=== PATIENT | female | born 1990 | race Caucasian/White ===

== ENCOUNTER 2021-03-01 12:20 | Outpatient (CLI) | payer OTHER ==
--- NOTE | 2021-03-02 09:35 | Mammography Report ---
BILATERAL DIGITAL DIAGNOSTIC MAMMOGRAM 3D/2D: 03/01/2021 CLINICAL: Focal right breast pain. No prior exams were available for comparison. There are scattered fibroglandular elements in both br easts. There is an oval equal density focal asymmetry with an obscured, indistinct, and circumscribed margin in the right breast at 11 o'clock middle depth. This correlates to the area of reported pain. No other significant masses, calcifications, or other findings are seen in either breast. IMPRESSION: INCOMPLETE: NEEDS ADDITIONAL IMAGING EVALUATION The oval equal density focal asymmetry in the right breast resembles a lymph node and is indeterminat e. An ultrasound is recommended. Ultrasound will be performed immediately following the current exam. This exam was interpreted at Station ID: [id number]. NOTE: For mammograms, a report in lay terms will be sent to the patient. Approximately 15% of breast malignancies will not be visualized mammographically. In the management of a palpable breast mass, a negative mammogram must not discourage biopsy of a clinically suspicious lesion. Electronically Signed By: Parminder Regan M.D. ddp/:03/01/2021 14:18:35 ACR BI-RADS Category 0: Incomplete 3340F PARENCHYMAL PATTERN: (A) - The breast(s) demonstrate(s) scattered fibroglandular densities. BI-RADS CATEGORY: (0) - 0 Ultrasound [id number] Immediate follow-up LATERALITY: (B)
--- NOTE | 2021-03-02 09:35 | Ultrasound Report ---
LIMITED ULTRASOUND OF RIGHT BREAST: 03/01/2021 CLINICAL: Focal right breast pain. Comparison is made to exam dated: 03/01/2021 mammogram - [facility]. Color flow and real-time ultrasound of the right breast 11 o'clock region were performed on the areas of interest. Molina scale images of the real-time examination were reviewed. There is a benign-appearing oval normal lymph node with indistinct and circumscribed margins in the p osterior right breast at 11 o'clock 12 cm from the nipple. This oval normal lymph node is of mixed e chogenicity with fatty hilum. This correlates to the area of reported pain and with mammography find ings. Color flow imaging demonstrates that there is no increase in vascularity. No other discrete cy stic or solid mass identified in the area of pain. IMPRESSION: BENIGN There is no sonographic evidence of malignancy. The oval lymph node is normal in size and appears benign. This is likely an incidental finding. No ot her discrete mass identified in the area of focal pain. Recommend clinical followup to demonstrate re solution of clinical symptoms. This exam was interpreted at Station ID: [id number]. Electronically Signed By: Parminder Regan M.D. ddp/:03/01/2021 14:22:58 Ultrasound BI-RADS: 2 Benign BI-RADS CATEGORY: (2) - 2 Unspecified - other recall n/a LATERALITY: (B)
== END 2021-03-01 12:21 | disposition home or self-care (01) ==
LOC: DI 12:20
PROVIDERS: ATTEND Student in an Organized Health Care Education/Training Program
DX: N64.4 Mastodynia (principal)

== ENCOUNTER 2022-04-07 14:45 | Emergency (ER) | payer OTHER ==
--- NOTE | 2022-04-07 15:37 | ED Physician Documentation ---
History of Present Illness - Stated complaint Stated Complaint: ABDOMINAL PX - Chief complaint Chief Complaint: Abd Pain - History obtained from History obtained from: Patient, Family - History of Present Illness Pain level max: 6 Pain level now: 4 - Additonal information Additional information: Patient is a 31-year-old female who presents to the emergency department stating that she has had right lower quadrant abdominal pain for the past several weeks. She states that she was at the walk-in clinic in [place]. She states that moriah lock did an ultrasound and told her that she may have fluid around her endometrium and may have bacterial vaginitis. They treated her with Flagyl. She states that the pain did improve, but the pain has now returned. She states she followed up with her doctor who reviewed the documentation from the walk-in clinic and reportedly told the patient that she did not have any fluid around her endometrium and did not have any signs of bacterial vaginitis. She states that he palpated her abdomen and was concerned about potential appendicitis. Patient has a history of polycystic ovarian syndrome. Has a history of prior cholecystectomy. 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) Psych: Depression, Anxiety - Past Surgical History Past Surgical History: Yes General: Cholecystectomy - Present Medications Home Medications: Ambulatory Orders Medication Instructions Recorded Confirmed Buspirone HCl 15 mg PO BID 04/07/22 04/07/22 Empagliflozin [Jardiance] 10 mg PO DAILY 04/07/22 04/07/22 PARoxetine HCl [Paxil] 30 mg PO DAILY 04/07/22 04/07/22 metFORMIN [Glucophage] 1,000 mg PO DAILY 04/07/22 04/07/22 - Allergies Allergies/Adverse Reactions: Allergies Allergy/AdvReac Type Severity Reaction Status Date / Time morphine Allergy Hives Verified 04/07/22 15:10 - Living Situation Living Situation: reports: With family Living Arrangement: reports: At home - Social History Does the pt have substance abuse?: No - Family History Family history: reports: Non contributory PD ED PE NORMAL - Vitals Vital signs reviewed: Yes - General General: Alert and oriented X 3, No acute distress - HEENT HEENT: PERRL, Moist mucous membranes - Neck Neck: Supple, no meningeal sign - Cardiac Cardiac: RRR, Strong equal pulses - Respiratory Respiratory: No respiratory distress, Clear bilaterally - Abdomen Abdomen: Normal bowel sounds, Soft, Non distended, Other (Tender to palpation middle of the right side of her abdomen. Mild tenderness at McBurney's point. No peritoneal signs. Otherwise benign exam of the abdomen) - Back Back: No CVA TTP, No spinal TTP - Derm Derm: Warm and dry - Extremities Extremities: No edema, No calf tenderness / cord - Neuro Neuro: Alert and oriented X 3 - Psych Psych: Normal mood, Normal affect Results - Vitals Vitals: Vital Signs - 24 hr 04/07/22 04/07/22 15:04 17:34 Temperature 36.7 C Heart Rate 104 H 91 Respiratory 14 18 Rate Blood Pressure 137/97 H 121/88 H O2 Saturation 98 100 Oxygen O2 Source Room air - Labs Labs: Laboratory Tests 04/07/22 04/07/22 04/07/22 15:12 15:20 15:35 WBC 8.7 RBC 5.52 H Hgb 15.5 Hct 49.3 H MCV 89.3 MCH 28.1 MCHC 31.4 L RDW 12.6 Plt Count 271 MPV 9.3 Neut # (Auto) 4.9 Lymph # (Auto) 2.9 Wythe # (Auto) 0.6 Eos # (Auto) 0.3 Baso # (Auto) 0.0 Absolute Nucleated RBC 0.00 Nucleated RBC % 0.0 Sodium Potassium Chloride Carbon Dioxide Anion Gap BUN Creatinine Estimated GFR (MDRD) Glucose Calcium Total Bilirubin AST ALT Alkaline Phosphatase Total Protein Albumin Globulin Albumin/Globulin Ratio Lipase Urine Color YELLOW Urine Clarity CLEAR Urine pH 5.5 Ur Specific [place] 1.010 Urine Protein NEGATIVE Urine Glucose (UA) >=1000 H Urine Ketones NEGATIVE Urine Occult Blood NEGATIVE Urine Nitrite NEGATIVE Urine Bilirubin NEGATIVE Urine Urobilinogen 0.2 (NORMAL) Ur Leukocyte Esterase NEGATIVE Ur Microscopic Review NOT INDICATED Urine Culture Comments NOT INDICATED Urine HCG, Qual NEGATIVE 04/07/22 15:35 WBC RBC Hgb Hct MCV MCH MCHC RDW Plt Count MPV Neut # (Auto) Lymph # (Auto) [place] # (Auto) Eos # (Auto) Baso # (Auto) Absolute Nucleated RBC Nucleated RBC % Sodium 136 Potassium 3.8 Chloride 100 L Carbon Dioxide 25 Anion Gap 11.0 BUN 12 Creatinine 0.7 Estimated GFR (MDRD) 96 Glucose 173 H Calcium 9.7 Total Bilirubin 0.4 AST 37 ALT 50 Alkaline Phosphatase 85 Total Protein 7.5 Albumin 4.2 Globulin 3.3 Albumin/Globulin Ratio 1.3 Lipase 44 Urine Color Urine Clarity Urine pH Ur Specific [place] Urine Protein Urine Glucose (UA) Urine Ketones Urine Occult Blood Urine Nitrite Urine Bilirubin Urine Urobilinogen Ur Leukocyte Esterase Ur Microscopic Review Urine Culture Comments Urine HCG, Qual - Rads (name of study) Ct abd/pelvis Radiology: Final report received, EMP read contemporaneously, See rad report PD MEDICAL DECISION MAKING - ED course Complexity details: reviewed results, re-evaluated patient, considered differential, d/w patient ED course: Patient is a 31-year-old female who presents to the emergency department with right-sided abdominal pain. Appears to have a normal appendix on CT. Normal white count. Exam is not consistent with appendicitis at this time. No evidence of adnexal pathology. She does have some mild colonic obstipation. We will treat as mild constipation. Patient is well-appearing, nontoxic. Afebrile. Patient counseled regarding signs and symptoms for which I believe and urgent re-evaluation would be necessary. Patient with good understanding of and agreement to plan and is comfortable going home at this time This document was made in part using voice recognition software. While efforts are made to proofread this document, sound alike and grammatical errors may occur. ABDOMEN: Lung bases: Lung bases are clear. Heart size is normal. Solid organs: Liver and spleen are normal in size and enhancement. Gallbladder has been previously resected Biliary system is non dilated. Pancreas enhances normally. No adrenal nodules. Kidneys demonstrate normal size and enhancement, without hydronephrosis. Peritoneum and bowel: Bowel loops demonstrate normal wall thickness and caliber. No free fluid or air. Nodes and vessels: No retroperitoneal or mesenteric adenopathy by size criteria. Aorta and inferior vena cava are normal in size. Miscellaneous: No ventral hernias. PELVIS: Genitourinary: Bladder wall thickness is normal. Miscellaneous: No inguinal hernias or adenopathy. What likely is a normal small appendix is seen at the right lower quadrant. There definitely is no secondary CT evidence of acute appendicitis at the right lower quadrant. No adnexal cystic or solid mass or abnormal fluid is seen within the peritoneal space. Bones: No suspicious bony lesions. No vertebral body compression fractures. IMPRESSION: Low likelihood of appendicitis-what appears to be likely a normal but small appendix is found at the right lower quadrant and in this area there is no secondary CT evidence of acute appendicitis. Additionally, there is no adnexal pathology seen or evidence of a recently ruptured right ovarian cyst. Mild colonic obstipation-no other source of right lower quadrant pain is found, such as urinary tract stone Departure - Departure Disposition: 01 Home, Self Care Clinical Impression: Abdominal pain Qualifiers: Abdominal location: right lower quadrant Qualified Code(s): R10.31 - Right lower quadrant pain Condition: Good Instructions: ED Abdominal Pain Female Non-Specific Abdominal Pain Follow-Up: your,doctor in 1 week if not better [Other] Comments: Please follow up with your doctor for further care. Your CT scan appears to show a normal appendix and ovaries. You do have some constipation and this could be causing your pain. Please return if you worsen. ABDOMEN: Lung bases: Lung bases are clear. Heart size is normal. Solid organs: Liver and spleen are normal in size and enhancement. Gallbladder has been previously resected Biliary system is non dilated. Pancreas enhances normally. No adrenal nodules. Kidneys demonstrate normal size and enhancement, without hydronephrosis. Peritoneum and bowel: Bowel loops demonstrate normal wall thickness and caliber. No free fluid or air. Nodes and vessels: No retroperitoneal or mesenteric adenopathy by size criteria. Aorta and inferior vena cava are normal in size. Miscellaneous: No ventral hernias. PELVIS: Genitourinary: Bladder wall thickness is normal. Miscellaneous: No inguinal hernias or adenopathy. What likely is a normal small appendix is seen at the right lower quadrant. There definitely is no secondary CT evidence of acute appendicitis at the right lower quadrant. No adnexal cystic or solid mass or abnormal fluid is seen within the peritoneal space. Bones: No suspicious bony lesions. No vertebral body compression fractures. IMPRESSION: Low likelihood of appendicitis-what appears to be likely a normal bu t small appendix is found at the right lower quadrant and in this area there is no secondary CT evidence of acute appendicitis. Additionally, there is no adnexal pathology seen or evidence of a recently ruptured right ovarian cyst. Mild colonic obstipation-no other source of right lower quadrant pain is found, such as urinary tract stone Discharge Date/Time: 04/07/22 17:34
[2022-04-07 15:43] LABS: BASOPHILS % (AUTO) 0.3 %; EOSINOPHILS # (AUTO) 0.3 10^3/uL (0.0-0.7); EOSINOPHILS % (AUTO) 3.2 %; HCT - HEMATOCRIT 49.3 % (37.0-47.0); HGB - HEMOGLOBIN 15.5 g/dL (12.0-16.0); LYMPHOCYTES # (AUTO) 2.9 10^3/uL (1.5-3.5); LYMPHOCYTES % (AUTO) 33.5 %; MEAN CORPUSCULAR HEMOGLOBIN 28.1 pg (27.0-31.0); MEAN CORPUSCULAR HGB CONC 31.4 g/dL (32.0-36.0); MEAN CORPUSCULAR VOLUME 89.3 fL (81.0-99.0); MEAN PLATELET VOLUME 9.3 fL (7.9-10.8); MONOCYTES # (AUTO) 0.6 10^3/uL (0.0-1.0); NEUTROPHILS # (AUTO) 4.9 10^3/uL (1.5-6.6); NEUTROPHILS % (AUTO) 55.9 %; PLT - PLATELET COUNT 271 10^3/uL (130-450); RED BLOOD COUNT 5.52 10^6/uL (4.20-5.40); RED CELL DISTRIBUTION WIDTH 12.6 % (12.0-15.0); WHITE BLOOD COUNT 8.7 x10^3/uL (4.8-10.8)
[2022-04-07 15:43] LABS: BILIRUBIN,URINE NEGATIVE (NEGATIVE); GLUCOSE, URINE (UA) >=1000 mg/dL (NEGATIVE); KETONES,URINE (UA) NEGATIVE (NEGATIVE); LEUKOCYTE ESTERASE, URINE NEGATIVE (NEGATIVE); NITRITE,URINE NEGATIVE (NEGATIVE); OCCULT BLOOD,URINE NEGATIVE (NEGATIVE); PH,URINE 5.5 PH (5.0-7.5); PROTEIN,URINE NEGATIVE (NEGATIVE); UROBILINOGEN,URINE 0.2 (NORMAL) E.U./dL (NORMAL)
[2022-04-07 15:47] LABS: CLARITY,URINE CLEAR (CLEAR)
[2022-04-07 15:49] LABS: HCG UR QUAL NEGATIVE
[2022-04-07] MEDS ORDERED: iohexoL-300 100 ML VIAL ONE (15:54)
[2022-04-07 15:55] LABS: ALBUMIN 4.2 g/dL (3.2-5.5); ALBUMIN/GLOBULIN RATIO 1.3 (1.0-2.2); BILIRUBIN,TOTAL 0.4 mg/dL (0.2-1.0); CALCIUM 9.7 mg/dL (8.5-10.3); CREATININE 0.7 mg/dL (0.4-1.0); POTASSIUM 3.8 mmol/L (3.5-5.0); TOTAL PROTEIN 7.5 g/dL (6.7-8.2)
--- OUTSIDE RECORDS SUMMARY | 2022-04-07 16:02 | EXTERNAL MEDICAL SUMMARY RPT | Continuity of Care Document ---
:1990 Author Organization [facility] Address [address] [place] [address] Phone Allergies and Intolerances date description facility type (no date) [facility] (unknown) Encounters No information. Functional Status No information. Immunizations No information. Medications No information. Problems No information. Procedures No information. Results/Labs test date author facility value unit interpret ation Result panel 1 (unknown) (no (unknown) (unknown) (no value) (units (unk nown) date) unknown) (unknown) (no (unknown) (unknown) 03/01/22 (units (unkno wn) date) unknown) (unknown) (no (unknown) (unknown) 1. Exercise (units (un known) date) stress test is unknown) negative for inducible ischemia. (unknown) (no (unknown) (unknown) 119 (units (unkno wn) date) unknown) (unknown) (no (unknown) (unknown) [address] [place] [address] (units (unknown) date) unknown) (unknown) (no (unknown) (unknown) 2. Diminished (units ( unknown) date) exercise unknown) tolerance. Functional aerobic impairment positive 16 (unknown) (no (unknown) (unknown) 3. Normal blood (units (unknown) date) pressure unknown) response. (unknown) (no (unknown) (unknown) 4. Baseline (units (un known) date) sinus unknown) tachycardia. In recovery, frequent premature ventricular (unknown) (no (unknown) (unknown) Accession (units (unkn own) date) Number: unknown) [id number] (unknown) (no (unknown) (unknown) Age/Sex: 31 / F (units (unknown) date) Date of Service: unknown) (unknown) (no (unknown) (unknown) [place], [place] (units ( unknown) date) [id number] unknown) (unknown) (no (unknown) (unknown) CARDIAC STRESS: (units (unknown) date) The underwent unknown) exercise stress test under the supervision of an (unknown) (no (unknown) (unknown) CONCLUSION: (units (un known) date) unknown) (unknown) (no (unknown) (unknown) COPIES MNE: (units (un known) date) PALV; unknown) (unknown) (no (unknown) (unknown) DATE OF SERVICE: (units (unknown) date) 03/01/2022 unknown) (unknown) (no (unknown) (unknown) DICTATING (units (unkn own) date) MD/COPIES TO: unknown) Abhay Yee MD (unknown) (no (unknown) (unknown) : 1990 (units (unknown) date) Acct:[id number] unknown) (unknown) (no (unknown) (unknown) Draft (units (unkno wn) date) unknown) (unknown) (no (unknown) (unknown) Bre Carmen (units (unknown) date) - unknown) (unknown) (no (unknown) (unknown) However, in (units (un known) date) recovery, the unknown) patient has frequent PVCs, mostly monomorphic, (unknown) (no (unknown) (unknown) INDICATION: (units (un known) date) Palpitation with unknown) inappropriate sinus tachycardia. (unknown) (no (unknown) (unknown) [facility] (units (unknown) date) unknown) (unknown) (no (unknown) (unknown) Loc: DI (units (unkno wn) date) unknown) (unknown) (no (unknown) (unknown) [id number] (units (unk nown) date) unknown) (unknown) (no (unknown) (unknown) Nuclear Medicine (units (unknown) date) Report unknown) (unknown) (no (unknown) (unknown) Ordering (units (unkno wn) date) Provider: unknown) Evgeny Molina MD (unknown) (no (unknown) (unknown) PROCEDURE (units (unkn own) date) PERFORMED: unknown) Exercise stress test. 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 Baseline blood pressure 124/80 and (unknown) (no (unknown) (unknown) attending staff. (units (unknown) date) She walked on unknown) Jose Elias protocol for 7 minutes and 56 seconds, (unknown) (no (unknown) (unknown) beats per minute (units (unknown) date) with some unknown) nonspecific ST-T changes. During exercise, there (unknown) (no (unknown) (unknown) blood pressure (units (unknown) date) 160/90 mmHg. unknown) Baseline rhythm was sinus with heart rate 99 to (unknown) (no (unknown) (unknown) contractions, (units ( unknown) date) which were unknown) monomorphic and got resolved with Valsalva. No chest (unknown) (no (unknown) (unknown) dd: 03/01/2022 (units (unknown) date) 17:17:00 dt: unknown) 03/01/2022 17:45:00 (unknown) (no (unknown) (unknown) discomfort. Had (units (unknown) date) some shortness of unknown) breath. (unknown) (no (unknown) (unknown) discomfort. (units (un known) date) unknown) (unknown) (no (unknown) (unknown) doc#: (units (unkno wn) date) [id number]/job#: unknown) [id number] (unknown) (no (unknown) (unknown) including (units (unkn own) date) bigeminy pattern. unknown) No ventricular tachycardia. The patient was (unknown) (no (unknown) (unknown) peak (units (unkno wn) date) unknown) (unknown) (no (unknown) (unknown) percent. (units (unkno wn) date) unknown) (unknown) (no (unknown) (unknown) symptomatic with (units (unknown) date) PVCs. She did unknown) Valsalva and PVC got resolved. No chest (unknown) (no (unknown) (unknown) were no (units (unkno wn) date) convincing new unknown) inducible ischemic changes. No significant arrhythmias. Result panel 2 (unknown) (no (unknown) (unknown) (no value) (units (unk nown) date) unknown) (unknown) (no (unknown) (unknown) 1. Exercise (units (un known) date) stress test is unknown) negative for inducible ischemia. (unknown) (no (unknown) (unknown) 119 (units (unkno wn) date) unknown) (unknown) (no (unknown) (unknown) [address] [place] [address] (units (unknown) date) unknown) (unknown) (no (unknown) (unknown) 2. Diminished (units ( unknown) date) exercise unknown) tolerance. Functional aerobic impairment positive 16 (unknown) (no (unknown) (unknown) 3. Normal blood (units (unknown) date) pressure unknown) response. (unknown) (no (unknown) (unknown) 4. Baseline (units (un known) date) sinus unknown) tachycardia. In recovery, frequent premature ventricular (unknown) (no (unknown) (unknown) Accession (units (unkn own) date) Number: unknown) (unknown) (no (unknown) (unknown) Age/Sex: 31 / F (units (unknown) date) Date of Service: unknown) (unknown) (no (unknown) (unknown) [place], [place] (units ( unknown) date) [address] unknown) (unknown) (no (unknown) (unknown) CARDIAC STRESS: (units (unknown) date) The underwent unknown) exercise stress test under the supervision of an (unknown) (no (unknown) (unknown) CONCLUSION: (units (un known) date) unknown) (unknown) (no (unknown) (unknown) COPIES MNE: (units (un known) date) PALV; unknown) (unknown) (no (unknown) (unknown) DATE OF SERVICE: (units (unknown) date) 03/01/2022 unknown) (unknown) (no (unknown) (unknown) DICTATING (units (unkn own) date) MD/COPIES TO: unknown) Abhay Yee MD (unknown) (no (unknown) (unknown) : 1990 (units (unknown) date) Acct:[id number] unknown) (unknown) (no (unknown) (unknown) Draft (units (o wn) date) unknown) (unknown) (no (unknown) (unknown) Carmen Díaz (units (unknown) date) - unknown) (unknown) (no (unknown) (unknown) However, in (units (un known) date) recovery, the unknown) patient has frequent PVCs, mostly monomorphic, (unknown) (no (unknown) (unknown) INDICATION: (units (un known) date) Palpitation with unknown) inappropriate sinus tachycardia. (unknown) (no (unknown) (unknown) [facility] (units (unknown) date) unknown) (unknown) (no (unknown) (unknown) Loc: DI (units (o wn) date) unknown) (unknown) (no (unknown) (unknown) [id number] (units () ) unknown) (unknown) (no (unknown) (unknown) Nuclear Medicine (units (unknown) date) Report unknown) (unknown) (no (unknown) (unknown) Ordering (units (o wn) date) Provider: unknown) (unknown) (no (unknown) (unknown) PROCEDURE (units ( own) date) PERFORMED: unknown) Exercise stress test. 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 Baseline blood pressure 124/80 and (unknown) (no (unknown) (unknown) attending staff. (units (unknown) date) She walked on unknown) Jose Elias protocol for 7 minutes and 56 seconds, (unknown) (no (unknown) (unknown) beats per minute (units (unknown) date) with some unknown) nonspecific ST-T changes. During exercise, there (unknown) (no (unknown) (unknown) blood pressure (units (unknown) date) 160/90 mmHg. unknown) Baseline rhythm was sinus with heart rate 99 to (unknown) (no (unknown) (unknown) contractions, (units ( unknown) date) which were unknown) monomorphic and got resolved with Valsalva. No chest (unknown) (no (unknown) (unknown) dd: 03/01/2022 (units (unknown) date) 17:17:00 dt: unknown) 03/01/2022 17:45:00 (unknown) (no (unknown) (unknown) discomfort. Had (units (unknown) date) some shortness of unknown) breath. (unknown) (no (unknown) (unknown) discomfort. (units (un known) date) unknown) (unknown) (no (unknown) (unknown) doc#: (units (unkno wn) date) [id number]/job#: unknown) [id number] (unknown) (no (unknown) (unknown) including (units (unkn own) date) bigeminy pattern. unknown) No ventricular tachycardia. The patient was (unknown) (no (unknown) (unknown) peak (units (unkno wn) date) unknown) (unknown) (no (unknown) (unknown) percent. (units (unkno wn) date) unknown) (unknown) (no (unknown) (unknown) symptomatic with (units (unknown) date) PVCs. She did unknown) Valsalva and PVC got resolved. No chest (unknown) (no (unknown) (unknown) were no (units (unkno wn) date) convincing new unknown) inducible ischemic changes. No significant arrhythmias. Result panel 3 (unknown) (no (unknown) (unknown) (no value) (units (unk nown) date) unknown) (unknown) (no (unknown) (unknown) [id number] (units (unkn own) date) unknown) (unknown) (no (unknown) (unknown) 03/27/22 (units (unkno wn) date) unknown) (unknown) (no (unknown) (unknown) 12:54 (units (unkno wn) date) unknown) (unknown) (no (unknown) (unknown) Age/Sex: 31 / F (units (unknown) date) Date of Service: unknown) (unknown) (no (unknown) (unknown) Allergies (units (unkn own) date) unknown) (unknown) (no (unknown) (unknown) [facility] (units (unknown) date) Medicine unknown) (unknown) (no (unknown) (unknown) [place], [place] (units ( unknown) date) [id number] unknown) (unknown) (no (unknown) (unknown) Anxiety (units (unkno wn) date) unknown) (unknown) (no (unknown) (unknown) Attending Dr: (units ( unknown) date) Taina Deleon unknown) 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 (unknown) (no (unknown) (unknown) BP 132/80 (units (unkn own) date) unknown) (unknown) (no (unknown) (unknown) Blood Pressure (units (unknown) date) Location Lt unknown) brachial (unknown) (no (unknown) (unknown) : 1990 (units (unknown) date) Acct:[id number] unknown) (unknown) (no (unknown) (unknown) Depression (units (unk nown) date) unknown) (unknown) (no (unknown) (unknown) Dept at (units (unkno wn) date) . unknown) (unknown) (no (unknown) (unknown) Documented By: (units (unknown) date) Taina Deleon unknown) 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 03/27/22 1254 (unknown) (no (unknown) (unknown) Draft (units (unkno wn) date) unknown) (unknown) (no (unknown) (unknown) [facility] (units (unknown) date) Office Visit unknown) (unknown) (no (unknown) (unknown) History of (units (unk nown) date) removal of ovarian unknown) cyst (unknown) (no (unknown) (unknown) Hx of (units (unkno wn) date) cholecystectomy unknown) (unknown) (no (unknown) (unknown) ITCHING (units (unkno wn) date) unknown) (unknown) (no (unknown) (unknown) Intake Note: (units (u nknown) date) unknown) (unknown) (no (unknown) (unknown) Intake performed (units (unknown) date) by: Jimena Pearson unknown) (unknown) (no (unknown) (unknown) Intake (units (unkno wn) date) unknown) (unknown) (no (unknown) (unknown) Intake- Clincial (units (unknown) date) Staff unknown) (unknown) (no (unknown) (unknown) Loc: [facility] (units (unkno wn) date) unknown) (unknown) (no (unknown) (unknown) Medical History (units (unknown) date) (Updated 09/30/19 unknown) @ 00:01 by ) (unknown) (no (unknown) (unknown) Oxygen Delivery (units (unknown) date) Method room air unknown) (unknown) (no (unknown) (unknown) PFSH (units (unkno wn) date) unknown) (unknown) (no (unknown) (unknown) Patient presents (units (unknown) date) to [facility] with unknown) concerns for lower abdominal pain x 3 days. Patient (unknown) (no (unknown) (unknown) Patient: (units (unkno wn) date) Carmen Díaz unknown) MR#: M (unknown) (no (unknown) (unknown) Pneumonia (units (unkn own) date) unknown) (unknown) (no (unknown) (unknown) Position Sitting (units (unknown) date) unknown) (unknown) (no (unknown) (unknown) Pulse 114 H (units (un known) date) unknown) (unknown) (no (unknown) (unknown) Pulse Oximetry (units (unknown) date) (%) 99 unknown) (unknown) (no (unknown) (unknown) Pulse Source (units (u nknown) date) Monitor unknown) (unknown) (no (unknown) (unknown) Reason For Visit (units (unknown) date) unknown) (unknown) (no (unknown) (unknown) Respiration 16 (units (unknown) date) unknown) (unknown) (no (unknown) (unknown) Signed By: (units (unk nown) date) unknown) (unknown) (no (unknown) (unknown) Smoking Status: (units (unknown) date) Never smoker unknown) (unknown) (no (unknown) (unknown) Surgical History (units (unknown) date) (Reviewed 09/15/19 unknown) @ 21:04 by Cory Lobo-Oras, 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) (unknown) (no (unknown) (unknown) Temp 97.9 F (units (un known) date) unknown) (unknown) (no (unknown) (unknown) Temp Source (units (un known) date) Temporal Artery unknown) Scan (unknown) (no (unknown) (unknown) This note may (units ( unknown) date) have been all or unknown) partially generated using voice recognition (unknown) (no (unknown) (unknown) Tobacco + (units (unkn own) date) Substance Use unknown) (unknown) (no (unknown) (unknown) Tobacco Status (units (unknown) date) unknown) (unknown) (no (unknown) (unknown) 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 If (units (unknown) date) there are any unknown) questions, please contact the Medical Records (unknown) (no (unknown) (unknown) may occur. (units (unk nown) date) Occasional unknown) wrong-word or 'sound-alike' substitutions may have (unknown) (no (unknown) (unknown) morphine Allergy (units (unknown) date) (Severe, Verified unknown) 09/15/19 20:00) (unknown) (no (unknown) (unknown) occurred due to (units (unknown) date) the inherent unknown) limitations of voice recognition software. Please (unknown) (no (unknown) (unknown) read the note (units ( unknown) date) carefully and unknown) recognize, using context, where these substitutions (unknown) (no (unknown) (unknown) software. 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 (units (unknown) date) unknown) Result panel 4 (unknown) (no (unknown) (unknown) (no value) (units (unk nown) date) unknown) (unknown) (no (unknown) (unknown) [id number] (units (unkn own) date) unknown) (unknown) (no (unknown) (unknown) 03/27/22 (units (unkno wn) date) unknown) (unknown) (no (unknown) (unknown) 12:54 (units (unkno wn) date) unknown) (unknown) (no (unknown) (unknown) Age/Sex: 31 / F (units (unknown) date) Date of Service: unknown) (unknown) (no (unknown) (unknown) Allergies (units (unkn own) date) unknown) (unknown) (no (unknown) (unknown) [facility] (units (unknown) date) Medicine unknown) (unknown) (no (unknown) (unknown) [place], [place] (units ( unknown) date) [id number] unknown) (unknown) (no (unknown) (unknown) Anxiety (units (unkno wn) date) unknown) (unknown) (no (unknown) (unknown) Attending Dr: (units ( unknown) date) Taina Deleon unknown) 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 (unknown) (no (unknown) (unknown) BP 132/80 (units (unkn own) date) unknown) (unknown) (no (unknown) (unknown) Blood Pressure (units (unknown) date) Location Lt unknown) brachial (unknown) (no (unknown) (unknown) : 1990 (units (unknown) date) Acct:[id number] unknown) (unknown) (no (unknown) (unknown) Depression (units (unk nown) date) unknown) (unknown) (no (unknown) (unknown) Dept at (units (unkno wn) date) . unknown) (unknown) (no (unknown) (unknown) Documented By: (units (unknown) date) Taina Deleon unknown) 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 03/27/22 1254 (unknown) (no (unknown) (unknown) Draft (units (unkno wn) date) unknown) (unknown) (no (unknown) (unknown) Family Practice (units (unknown) date) Office Visit unknown) (unknown) (no (unknown) (unknown) History of (units (unk nown) date) removal of ovarian unknown) cyst (unknown) (no (unknown) (unknown) Hx of (units (unkno wn) date) cholecystectomy unknown) (unknown) (no (unknown) (unknown) ITCHING (units (unkno wn) date) unknown) (unknown) (no (unknown) (unknown) Intake Note: (units (u nknown) date) unknown) (unknown) (no (unknown) (unknown) Intake performed (units (unknown) date) by: Jimena Pearson unknown) (unknown) (no (unknown) (unknown) Intake (units (unkno wn) date) unknown) (unknown) (no (unknown) (unknown) Intake- Clincial (units (unknown) date) Staff unknown) (unknown) (no (unknown) (unknown) Loc: [facility] (units (unkno wn) date) unknown) (unknown) (no (unknown) (unknown) Medical History (units (unknown) date) (Updated 09/30/19 unknown) @ 00:01 by ) (unknown) (no (unknown) (unknown) Oxygen Delivery (units (unknown) date) Method room air unknown) (unknown) (no (unknown) (unknown) PFSH (units (unkno wn) date) unknown) (unknown) (no (unknown) (unknown) Patient presents (units (unknown) date) to [facility] with unknown) concerns for lower abdominal pain x 3 days. Patient (unknown) (no (unknown) (unknown) Patient: (units (unkno wn) date) Carmen Díaz unknown) MR#: M (unknown) (no (unknown) (unknown) Pneumonia (units (unkn own) date) unknown) (unknown) (no (unknown) (unknown) Position Sitting (units (unknown) date) unknown) (unknown) (no (unknown) (unknown) Pulse 114 H (units (un known) date) unknown) (unknown) (no (unknown) (unknown) Pulse Oximetry (units (unknown) date) (%) 99 unknown) (unknown) (no (unknown) (unknown) Pulse Source (units (u nknown) date) Monitor unknown) (unknown) (no (unknown) (unknown) Reason For Visit (units (unknown) date) unknown) (unknown) (no (unknown) (unknown) Respiration 16 (units (unknown) date) unknown) (unknown) (no (unknown) (unknown) Signed By: (units (unk nown) date) unknown) (unknown) (no (unknown) (unknown) Smoking Status: (units (unknown) date) Never smoker unknown) (unknown) (no (unknown) (unknown) Surgical History (units (unknown) date) (Reviewed 09/15/19 unknown) @ 21:04 by FLORI Marrufo) (unknown) (no (unknown) (unknown) Temp 97.9 F (units (un known) date) unknown) (unknown) (no (unknown) (unknown) Temp Source (units (un known) date) Temporal Artery unknown) Scan (unknown) (no (unknown) (unknown) This note may (units ( unknown) date) have been all or unknown) partially generated using voice recognition (unknown) (no (unknown) (unknown) Tobacco + (units (unkn own) date) Substance Use unknown) (unknown) (no (unknown) (unknown) Tobacco Status (units (unknown) date) unknown) (unknown) (no (unknown) (unknown) 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 She unknown) reports the pain as constant and aching. She (unknown) (no (unknown) (unknown) denies fever, (units ( unknown) date) chills, vomiting. unknown) Reports hx of PCOS. (unknown) (no (unknown) (unknown) have occurred. If (units (unknown) date) there are any unknown) questions, please contact the Medical Records (unknown) (no (unknown) (unknown) may occur. (units (unk nown) date) Occasional unknown) wrong-word or 'sound-alike' substitutions may have (unknown) (no (unknown) (unknown) morphine Allergy (units (unknown) date) (Severe, Verified unknown) 09/15/19 20:00) (unknown) (no (unknown) (unknown) occurred due to (units (unknown) date) the inherent unknown) limitations of voice recognition software. Please (unknown) (no (unknown) (unknown) read the note (units ( unknown) date) carefully and unknown) recognize, using context, where these substitutions (unknown) (no (unknown) (unknown) software. 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 (units (unknown) date) States the pain unknown) began with cramping 4 days ago, and then became Result panel 5 (unknown) (no (unknown) (unknown) (no value) (units (unk nown) date) unknown) (unknown) (no (unknown) (unknown) (1) Suprapubic (units (unknown) date) pain: unknown) (unknown) (no (unknown) (unknown) [id number] (units (unkn own) date) unknown) (unknown) (no (unknown) (unknown) 03/27/22 1315 (units ( unknown) date) unknown) (unknown) (no (unknown) (unknown) 03/27/22 (units (unkno wn) date) unknown) (unknown) (no (unknown) (unknown) 12:54 (units (unkno wn) date) unknown) (unknown) (no (unknown) (unknown) Age/Sex: 31 / F (units (unknown) date) Date of Service: unknown) (unknown) (no (unknown) (unknown) Allergies (units (unkn own) date) unknown) (unknown) (no (unknown) (unknown) [facility] (units (unknown) date) Medicine unknown) (unknown) (no (unknown) (unknown) [place], [place] (units ( unknown) date) [id number] unknown) (unknown) (no (unknown) (unknown) Anxiety (units (unkno wn) date) unknown) (unknown) (no (unknown) (unknown) Assessment + Plan (units (unknown) date) unknown) (unknown) (no (unknown) (unknown) Attending Dr: (units ( unknown) date) Taina Deleon unknown) 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 (unknown) (no (unknown) (unknown) BP 132/80 (units (unkn own) date) unknown) (unknown) (no (unknown) (unknown) Blood Pressure (units (unknown) date) Location Lt unknown) brachial (unknown) (no (unknown) (unknown) Chief Complaint (units (unknown) date) unknown) (unknown) (no (unknown) (unknown) Chief Complaint: (units (unknown) date) Suprapubic pain unknown) (unknown) (no (unknown) (unknown) Const (units (unkno wn) date) unknown) (unknown) (no (unknown) (unknown) : 1990 (units (unknown) date) Acct:[id number] unknown) (unknown) (no (unknown) (unknown) Depression (units (unk nown) date) unknown) (unknown) (no (unknown) (unknown) Dept at (units (unkno wn) date) . unknown) (unknown) (no (unknown) (unknown) Details: (units (unkno wn) date) unknown) (unknown) (no (unknown) (unknown) Documented By: (units (unknown) date) Taina Deleon unknown) [facility] 03/27/22 1254 (unknown) (no (unknown) (unknown) Effort + (units (o wn) date) Inspection: normal unknown) respiratory effort (unknown) (no (unknown) (unknown) Encourage patient (units (unknown) date) that if symptoms unknown) worsened, increased pain, fever, bleeding or (unknown) (no (unknown) (unknown) Exam (units (unkno wn) date) unknown) (unknown) (no (unknown) (unknown) Eyes (units (unkno wn) date) unknown) (unknown) (no (unknown) (unknown) Face and sinus: (units (unknown) date) normal facial exam unknown) (unknown) (no (unknown) (unknown) Family Practice (units (unknown) date) Office Visit unknown) (unknown) (no (unknown) (unknown) GI (units (unkno wn) date) unknown) (unknown) (no (unknown) (unknown) General: (units (unkno wn) date) appearance normal, unknown) both eyes and all related structures (unknown) (no (unknown) (unknown) General: (units (o wn) date) cooperative, unknown) healthy appearing, comfortable and no acute distress (unknown) (no (unknown) (unknown) General: no (units (un known) date) rashes or lesions unknown) noted (unknown) (no (unknown) (unknown) HENMT (units (unkno wn) date) unknown) (unknown) (no (unknown) (unknown) HPI and exam (units (u nknown) date) indicate unknown) suprapubic pain. We did check point of care urine testing (unknown) (no (unknown) (unknown) HPI (units (unkno wn) date) unknown) (unknown) (no (unknown) (unknown) Head: normal to (units (unknown) date) inspection unknown) (unknown) (no (unknown) (unknown) History of (units (unk nown) date) removal of ovarian unknown) cyst (unknown) (no (unknown) (unknown) Hx of (units (unkno wn) date) cholecystectomy unknown) (unknown) (no (unknown) (unknown) ITCHING (units (unkno wn) date) unknown) (unknown) (no (unknown) (unknown) Inspection: (units (un known) date) normal to unknown) inspection (unknown) (no (unknown) (unknown) Intake Note: (units (u nknown) date) unknown) (unknown) (no (unknown) (unknown) Intake performed (units (unknown) date) by: Jimena Pearson unknown) (unknown) (no (unknown) (unknown) Intake (units (unkno wn) date) unknown) (unknown) (no (unknown) (unknown) 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 She is declining /STD testing. (unknown) (no (unknown) (unknown) Loc: [facility] (units (unkno wn) date) unknown) (unknown) (no (unknown) (unknown) Medical History (units (unknown) date) (Updated 09/30/19 unknown) @ 00:01 by ) (unknown) (no (unknown) (unknown) Medications (units (un known) date) unknown) (unknown) (no (unknown) (unknown) Mild suprapubic (units (unknown) date) tenderness with unknown) palpation. No McBurney's or rebound noted. (unknown) (no (unknown) (unknown) Neck (units (unkno wn) date) unknown) (unknown) (no (unknown) (unknown) Neck: normal (units (u nknown) date) visual inspection unknown) and full ROM (unknown) (no (unknown) (unknown) No Known Home (units ( unknown) date) Medications unknown) 03/27/22 [History] (unknown) (no (unknown) (unknown) Other: (units (unkno wn) date) unknown) (unknown) (no (unknown) (unknown) Oxygen Delivery (units (unknown) date) Method room air unknown) (unknown) (no (unknown) (unknown) PFSH (units (unkno wn) date) unknown) (unknown) (no (unknown) (unknown) Palpation: soft (units (unknown) date) unknown) (unknown) (no (unknown) (unknown) 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 Denies dysuria, urinary (unknown) (no (unknown) (unknown) Patient presents (units (unknown) date) to [facility] with unknown) concerns for lower abdominal pain x 3 days. Patient (unknown) (no (unknown) (unknown) Patient presents (units (unknown) date) to walk-in clinic unknown) with complaints of suprapubic pain/cramping (unknown) (no (unknown) (unknown) Patient: (units (unkno wn) date) Carmen Díaz unknown) MR#: M (unknown) (no (unknown) (unknown) Plan (units (unkno wn) date) unknown) (unknown) (no (unknown) (unknown) Pneumonia (units (unkn own) date) unknown) (unknown) (no (unknown) (unknown) Position Sitting (units (unknown) date) unknown) (unknown) (no (unknown) (unknown) Pulse 114 H (units (un known) date) unknown) (unknown) (no (unknown) (unknown) Pulse Oximetry (units (unknown) date) (%) 99 unknown) (unknown) (no (unknown) (unknown) Pulse Source (units (u nknown) date) Monitor unknown) (unknown) (no (unknown) (unknown) Reason For Visit (units (unknown) date) unknown) (unknown) (no (unknown) (unknown) Resp (units (unkno wn) date) unknown) (unknown) (no (unknown) (unknown) Respiration 16 (units (unknown) date) unknown) (unknown) (no (unknown) (unknown) Signed By: (units (unk nown) date) <Electronically unknown) signed by Taina Deleon> (unknown) (no (unknown) (unknown) Signed (units (unkno wn) date) unknown) (unknown) (no (unknown) (unknown) Skin (units (unkno wn) date) unknown) (unknown) (no (unknown) (unknown) Smoking Status: (units (unknown) date) Never smoker unknown) (unknown) (no (unknown) (unknown) Surgical History (units (unknown) date) (Reviewed 09/15/19 unknown) @ 21:04 by FLORI Marrufo) (unknown) (no (unknown) (unknown) Temp 97.9 F (units (un known) date) unknown) (unknown) (no (unknown) (unknown) Temp Source (units (un known) date) Temporal Artery unknown) Scan (unknown) (no (unknown) (unknown) This note may (units ( unknown) date) have been all or unknown) partially generated using voice recognition (unknown) (no (unknown) (unknown) Tobacco + (units (unkn own) date) Substance Use unknown) (unknown) (no (unknown) (unknown) Tobacco Status (units (unknown) date) unknown) (unknown) (no (unknown) (unknown) 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 (units (unknown) date) Follow-up with unknown) primary care as needed (unknown) (no (unknown) (unknown) any other (units (unkn own) date) symptoms she will unknown) go to the emergency room for evaluation. Patient (unknown) (no (unknown) (unknown) constant pain 2 (units (unknown) date) days ago. She unknown) reports the pain as constant and aching. She (unknown) (no (unknown) (unknown) denies fever, (units ( unknown) date) chills, vomiting. unknown) Reports hx of PCOS. (unknown) (no (unknown) (unknown) denies fever, (units ( unknown) date) nausea, vomiting, unknown) constipation, diarrhea, unusual vaginal (unknown) (no (unknown) (unknown) discharge. (units (unk nown) date) Patient states unknown) there is no chance of are STDs. Her (unknown) (no (unknown) (unknown) evaluation. (units (un known) date) Patient declining unknown) test. Warm packs, ibuprofen. (unknown) (no (unknown) (unknown) for 5 days. (units (un known) date) Patient states unknown) symptoms started off intermittently, but has become (unknown) (no (unknown) (unknown) have occurred. 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 (unknown) (no (unknown) (unknown) may occur. (units (unk nown) date) Occasional unknown) wrong-word or 'sound-alike' substitutions may have (unknown) (no (unknown) (unknown) more constant (units ( unknown) date) recently. Patient unknown) does history of PCOS and ovarian cysts. She (unknown) (no (unknown) (unknown) morphine Allergy (units (unknown) date) (Severe, Verified unknown) 03/27/22 13:09) (unknown) (no (unknown) (unknown) occurred due to (units (unknown) date) the inherent unknown) limitations of voice recognition software. Please (unknown) (no (unknown) (unknown) read the note (units ( unknown) date) carefully and unknown) recognize, using context, where these substitutions (unknown) (no (unknown) (unknown) software. 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 (units (unknown) date) States the pain unknown) began with cramping 4 days ago, and then became (unknown) (no (unknown) (unknown) urgency or (units (unk nown) date) frequency. Patient unknown) is alert, oriented and comfortable. (unknown) (no (unknown) (unknown) which was (units (unkn own) date) negative for UTI unknown) in clinic. We will send off urine culture for Result panel 6 (unknown) (no (unknown) (unknown) (no value) (units (unk nown) date) unknown) (unknown) (no (unknown) (unknown) [id number] (units (unkn own) date) unknown) (unknown) (no (unknown) (unknown) 03/27/22 13:44 (units (unknown) date) unknown) (unknown) (no (unknown) (unknown) 03/27/22 13:45 (units (unknown) date) unknown) (unknown) (no (unknown) (unknown) 03/27/22 13:46 (units (unknown) date) unknown) (unknown) (no (unknown) (unknown) 03/27/22 14:04 (units (unknown) date) unknown) (unknown) (no (unknown) (unknown) 03/27/22 (units (unkno wn) date) unknown) (unknown) (no (unknown) (unknown) 13:27 (units (unkno wn) date) unknown) (unknown) (no (unknown) (unknown) Acute suprapubic (units (unknown) date) pain unknown) (unknown) (no (unknown) (unknown) Age/Sex: 31 / F (units (unknown) date) unknown) (unknown) (no (unknown) (unknown) Allergies (units (unkn own) date) unknown) (unknown) (no (unknown) (unknown) Allergy/AdvReac (units (unknown) date) Type Severity unknown) Reaction Status Date / Time (unknown) (no (unknown) (unknown) Anxiety (units (unkno wn) date) unknown) (unknown) (no (unknown) (unknown) Blood Pressure (units (unknown) date) 136/76 03/27/22 unknown) 13:27 (unknown) (no (unknown) (unknown) Blood Pressure (units (unknown) date) 136/76 unknown) (unknown) (no (unknown) (unknown) CBC Auto Diff (units ( unknown) date) [Complete Blood unknown) Count AUTO DIFF] Stat (unknown) (no (unknown) (unknown) CMP (units (unkno wn) date) [Comprehensive unknown) Metabolic Panel] Stat (unknown) (no (unknown) (unknown) Cardiovascular: (units (unknown) date) regular rate and unknown) rhythm, no peripheral edema, warm extremities (unknown) (no (unknown) (unknown) Chastity Little, (units (unknown) date) [Primary Care unknown) Provider] (unknown) (no (unknown) (unknown) Chief Complaint: (units (unknown) date) Abdominal Pain unknown) (unknown) (no (unknown) (unknown) Clinical (units (unkno wn) date) Impression: unknown) (unknown) (no (unknown) (unknown) Course (units (unkno wn) date) unknown) (unknown) (no (unknown) (unknown) : 1990 (units (unknown) date) Acct:[id number] unknown) (unknown) (no (unknown) (unknown) Date of Service: (units (unknown) date) 03/27/22 unknown) (unknown) (no (unknown) (unknown) Denies any upper (units (unknown) date) abdominal pain, unknown) has a history of cholecystectomy and ovarian (unknown) (no (unknown) (unknown) Departure (units (unkn own) date) unknown) (unknown) (no (unknown) (unknown) Depression (units (unk nown) date) unknown) (unknown) (no (unknown) (unknown) Discharge Plan (units (unknown) date) unknown) (unknown) (no (unknown) (unknown) ED Orders (units (unkn own) date) unknown) (unknown) (no (unknown) (unknown) ER Physician: (units ( unknown) date) Mary Cm unknown) FLORI (unknown) (no (unknown) (unknown) Emergency Report (units (unknown) date) unknown) (unknown) (no (unknown) (unknown) Exam Narrative: (units (unknown) date) unknown) (unknown) (no (unknown) (unknown) Exam (units (unkno wn) date) unknown) (unknown) (no (unknown) (unknown) GI: abdomen soft, (units (unknown) date) nontender to unknown) palpation, nondistended, without masses, rebound (unknown) (no (unknown) (unknown) General (units (unkno wn) date) unknown) (unknown) (no (unknown) (unknown) General: (units (unkno wn) date) cooperative, unknown) comfortable, in no acute distress, well groomed (unknown) (no (unknown) (unknown) HEENT: (units (unkno wn) date) symmetrical facial unknown) expressions, moist mucous membranes (unknown) (no (unknown) (unknown) HPI - Abdominal (units (unknown) date) Pain unknown) (unknown) (no (unknown) (unknown) HPI narrative: (units (unknown) date) unknown) (unknown) (no (unknown) (unknown) HPI (units (unkno wn) date) unknown) (unknown) (no (unknown) (unknown) History of (units (unk nown) date) Present Illness unknown) (unknown) (no (unknown) (unknown) History of (units (unk nown) date) removal of ovarian unknown) cyst (unknown) (no (unknown) (unknown) Home Medications (units (unknown) date) unknown) (unknown) (no (unknown) (unknown) Hx of (units (unkno wn) date) cholecystectomy unknown) (unknown) (no (unknown) (unknown) Initial Vital (units ( unknown) date) Signs unknown) (unknown) (no (unknown) (unknown) Initial Vital (units ( unknown) date) Signs: unknown) (unknown) (no (unknown) (unknown) [facility] (units (unknown) date) [address] [place] [address] unknown) [place] [address] (unknown) (no (unknown) (unknown) Lipase Stat (units (un known) date) unknown) (unknown) (no (unknown) (unknown) MSK: moves all (units (unknown) date) extremities, unknown) neurovascularly intact, no weakness, normal tone (unknown) (no (unknown) (unknown) Medical History (units (unknown) date) (Updated 03/27/22 unknown) @ 14:10 by Mary Cm [facility]) (unknown) (no (unknown) (unknown) Medication (units (unk nown) date) Instructions unknown) Recorded Confirmed (unknown) (no (unknown) (unknown) Mode of arrival: (units (unknown) date) Ambulatory unknown) (unknown) (no (unknown) (unknown) Narrative (units (unkn own) date) unknown) (unknown) (no (unknown) (unknown) Narrative: (units (unk nown) date) unknown) (unknown) (no (unknown) (unknown) Neuro: normal (units ( unknown) date) speech and unknown) cognition, A+O x3, ambulatory, clear speech (unknown) (no (unknown) (unknown) No Action (units (unkn own) date) unknown) (unknown) (no (unknown) (unknown) No Known Home (units ( unknown) date) Medications unknown) 03/27/22 (unknown) (no (unknown) (unknown) No Known Home (units ( unknown) date) Medications unknown) (unknown) (no (unknown) (unknown) Ordered: (units (unkno wn) date) unknown) (unknown) (no (unknown) (unknown) Orders (units (unkno wn) date) unknown) (unknown) (no (unknown) (unknown) Oxygen Delivery (units (unknown) date) Method 03/27/22 unknown) 13:27 (unknown) (no (unknown) (unknown) Oxygen Delivery (units (unknown) date) Method Room Air unknown) (unknown) (no (unknown) (unknown) Patient (units (unkno wn) date) Disposition: Home unknown) (unknown) (no (unknown) (unknown) Patient History (units (unknown) date) unknown) (unknown) (no (unknown) (unknown) Patient: (units (unkno wn) date) Carmen Díaz unknown) MR#: M (unknown) (no (unknown) (unknown) Pneumonia (units (unkn own) date) unknown) (unknown) (no (unknown) (unknown) Test (units (unknown) date) Serum,Qual Stat unknown) (unknown) (no (unknown) (unknown) Prescriptions: (units (unknown) date) unknown) (unknown) (no (unknown) (unknown) Psych: mental (units ( unknown) date) status is grossly unknown) normal, congruent mood, normal affect, pleasant (unknown) (no (unknown) (unknown) Pulse Oximetry 99 (units (unknown) date) 03/27/22 13:27 unknown) (unknown) (no (unknown) (unknown) Pulse Oximetry 99 (units (unknown) date) unknown) (unknown) (no (unknown) (unknown) Pulse Rate 106 H (units (unknown) date) 03/27/22 13:27 unknown) (unknown) (no (unknown) (unknown) Pulse Rate 106 H (units (unknown) date) unknown) (unknown) (no (unknown) (unknown) Referrals: (units (unk nown) date) unknown) (unknown) (no (unknown) (unknown) Related Data (units (u nknown) date) unknown) (unknown) (no (unknown) (unknown) Respiratory Rate (units (unknown) date) 16 03/27/22 13:27 unknown) (unknown) (no (unknown) (unknown) Respiratory Rate (units (unknown) date) 16 unknown) (unknown) (no (unknown) (unknown) Respiratory: (units (u nknown) date) normal effort, unknown) able to speak in complete sentences, without (unknown) (no (unknown) (unknown) Review of Systems (units (unknown) date) unknown) (unknown) (no (unknown) (unknown) Review of systems (units (unknown) date) is negative for unknown) acute abnormalities unless otherwise noted in (unknown) (no (unknown) (unknown) Reviewed vitals (units (unknown) date) signs and nursing unknown) notes. (unknown) (no (unknown) (unknown) Signed By: (units (unk nown) date) unknown) (unknown) (no (unknown) (unknown) Skin: brisk (units (un known) date) capillary refill, unknown) without pallor or erythema (unknown) (no (unknown) (unknown) Smoking Status: (units (unknown) date) Never smoker unknown) (unknown) (no (unknown) (unknown) Social History (units (unknown) date) (Reviewed 03/27/22 unknown) @ 14:08 by Mary Cm 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) (unknown) (no (unknown) (unknown) Source: patient (units (unknown) date) unknown) (unknown) (no (unknown) (unknown) Stated Complaint: (units (unknown) date) abd pain since unknown) (unknown) (no (unknown) (unknown) Substance Use (units ( unknown) date) Type: does not use unknown) (unknown) (no (unknown) (unknown) Surgical History (units (unknown) date) (Reviewed 03/27/22 unknown) @ 14:08 by Mary Cm [facility]) (unknown) (no (unknown) (unknown) Temperature 98.5 (units (unknown) date) F 03/27/22 13:27 unknown) (unknown) (no (unknown) (unknown) Temperature 98.5 (units (unknown) date) F unknown) (unknown) (no (unknown) (unknown) This is a (units (unkn own) date) 31-year-old female unknown) with history of type 2 diabetes, on Jardiance, who (unknown) (no (unknown) (unknown) Time Seen by (units (u nknown) date) Provider: 03/27/22 unknown) 13:36 (unknown) (no (unknown) (unknown) Urine Microscopic (units (unknown) date) Stat unknown) (unknown) (no (unknown) (unknown) Vital Signs - 8 (units (unknown) date) hr unknown) (unknown) (no (unknown) (unknown) Vital Signs (units (un known) date) unknown) (unknown) (no (unknown) (unknown) Vital signs: (units (u nknown) date) unknown) (unknown) (no (unknown) (unknown) alcohol intake (units (unknown) date) frequency: 0-2 unknown) drinks per day (unknown) (no (unknown) (unknown) and cooperative (units (unknown) date) unknown) (unknown) (no (unknown) (unknown) cyst with ovarian (units (unknown) date) cystectomy x1. unknown) (unknown) (no (unknown) (unknown) for the last 4 (units (unknown) date) days. 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 Denies urinary frequency (unknown) (no (unknown) (unknown) morphine Allergy (units (unknown) date) Severe ITCHING unknown) Verified 03/27/22 13:30 (unknown) (no (unknown) (unknown) or urgency, (units (un known) date) denies flank pain, unknown) shortness of breath, chest pain, back pain. (unknown) (no (unknown) (unknown) presents to (units (unk nown) date) emergency unknown) department complaining of suprapubic fullness and pressure (unknown) (no (unknown) (unknown) tenderness or (units ( unknown) date) exquisite unknown) tenderness with exam. (unknown) (no (unknown) (unknown) wheezing, (units (unkn own) date) stridor, or unknown) abnormal breath sounds. No retractions or tachypnea. Result panel 7 (unknown) (no date) (unknown) (unknown) 0.2 e.u./dl (unkn own) (unknown) (no date) (unknown) (unknown) 1.015 (units (unkn own) unknown) (unknown) (no date) (unknown) (unknown) 3 g/dl (unkn own) (unknown) (no date) (unknown) (unknown) 5.0 (units (unkn own) unknown) (unknown) (no date) (unknown) (unknown) CLEAR (units (unkn own) unknown) (unknown) (no date) (unknown) (unknown) NEGATIVE (units (unkn own) unknown) (unknown) (no date) (unknown) (unknown) YELLOW (units (unkn own) unknown) (unknown) (no date) (unknown) (unknown) YELLOW (units (unkn own) unknown) Result panel 8 (unknown) (no (unknown) (unknown) (no value) (units (unk nown) date) unknown) (unknown) (no (unknown) (unknown) 0-1 /HPF (units (unkno wn) date) unknown) (unknown) (no (unknown) (unknown) 0.2 e.u./dl (unkno wn) date) (unknown) (no (unknown) (unknown) [id number] (units (unkn own) date) unknown) (unknown) (no (unknown) (unknown) 1.015 (units (unkno wn) date) unknown) (unknown) (no (unknown) (unknown) 03/27/22 13:44 (units (unknown) date) unknown) (unknown) (no (unknown) (unknown) 03/27/22 13:45 (units (unknown) date) unknown) (unknown) (no (unknown) (unknown) 03/27/22 13:46 (units (unknown) date) unknown) (unknown) (no (unknown) (unknown) 03/27/22 14:04 (units (unknown) date) unknown) (unknown) (no (unknown) (unknown) 03/27/22 (units (unkno wn) date) unknown) (unknown) (no (unknown) (unknown) 13:27 (units (unkno wn) date) unknown) (unknown) (no (unknown) (unknown) 3 g/dl (unkno wn) date) (unknown) (no (unknown) (unknown) 5.0 (units (unkno wn) date) unknown) (unknown) (no (unknown) (unknown) Acute suprapubic (units (unknown) date) pain unknown) (unknown) (no (unknown) (unknown) Age/Sex: 31 / F (units (unknown) date) unknown) (unknown) (no (unknown) (unknown) Allergies (units (unkn own) date) unknown) (unknown) (no (unknown) (unknown) Allergy/AdvReac (units (unknown) date) Type Severity unknown) Reaction Status Date / Time (unknown) (no (unknown) (unknown) Anxiety (units (unkno wn) date) unknown) (unknown) (no (unknown) (unknown) Blood Pressure (units (unknown) date) 136/76 03/27/22 unknown) 13:27 (unknown) (no (unknown) (unknown) Blood Pressure (units (unknown) date) 136/76 unknown) (unknown) (no (unknown) (unknown) CBC Auto Diff (units ( unknown) date) [Complete Blood unknown) Count AUTO DIFF] Stat (unknown) (no (unknown) (unknown) CLEAR (units (unkno wn) date) unknown) (unknown) (no (unknown) (unknown) CMP (units (unkno wn) date) [Comprehensive unknown) Metabolic Panel] Stat (unknown) (no (unknown) (unknown) Cardiovascular: (units (unknown) date) regular rate and unknown) rhythm, no peripheral edema, warm extremities (unknown) (no (unknown) (unknown) Chastity Little, (units (unknown) date) MD [Primary Care unknown) Provider] (unknown) (no (unknown) (unknown) Chief Complaint: (units (unknown) date) Abdominal Pain unknown) (unknown) (no (unknown) (unknown) Clinical (units (unkno wn) date) Impression: unknown) (unknown) (no (unknown) (unknown) Course (units (unkno wn) date) unknown) (unknown) (no (unknown) (unknown) Cult Not (units (unkno wn) date) Indicated unknown) (unknown) (no (unknown) (unknown) : 1990 (units (unknown) date) Acct:[id number] unknown) (unknown) (no (unknown) (unknown) Date of Service: (units (unknown) date) 03/27/22 unknown) (unknown) (no (unknown) (unknown) Denies any upper (units (unknown) date) abdominal pain, unknown) has a history of cholecystectomy and ovarian (unknown) (no (unknown) (unknown) Denies any upper (units (unknown) date) abdominal pain, unknown) nausea or vomiting. States that she needs to (unknown) (no (unknown) (unknown) Departure (units (unkn own) date) unknown) (unknown) (no (unknown) (unknown) Depression (units (unk nown) date) unknown) (unknown) (no (unknown) (unknown) Discharge Plan (units (unknown) date) unknown) (unknown) (no (unknown) (unknown) ED Orders (units (unkn own) date) unknown) (unknown) (no (unknown) (unknown) ER Physician: (units ( unknown) date) Mary Cm unknown) 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 (unknown) (no (unknown) (unknown) Emergency Report (units (unknown) date) unknown) (unknown) (no (unknown) (unknown) Exam Narrative: (units (unknown) date) unknown) (unknown) (no (unknown) (unknown) Exam (units (unkno wn) date) unknown) (unknown) (no (unknown) (unknown) GI: abdomen soft, (units (unknown) date) nontender to unknown) palpation, nondistended, without masses, rebound (unknown) (no (unknown) (unknown) General (units (unkno wn) date) unknown) (unknown) (no (unknown) (unknown) General: (units (unkno wn) date) cooperative, unknown) comfortable, in no acute distress, well groomed (unknown) (no (unknown) (unknown) HEENT: (units (unkno wn) date) symmetrical facial unknown) expressions, moist mucous membranes (unknown) (no (unknown) (unknown) HPI - Abdominal (units (unknown) date) Pain unknown) (unknown) (no (unknown) (unknown) HPI narrative: (units (unknown) date) unknown) (unknown) (no (unknown) (unknown) HPI (units (unkno wn) date) unknown) (unknown) (no (unknown) (unknown) History of (units (unk nown) date) Present Illness unknown) (unknown) (no (unknown) (unknown) History of (units (unk nown) date) removal of ovarian unknown) cyst (unknown) (no (unknown) (unknown) Home Medications (units (unknown) date) unknown) (unknown) (no (unknown) (unknown) Hx of (units (unkno wn) date) cholecystectomy unknown) (unknown) (no (unknown) (unknown) Initial Vital (units ( unknown) date) Signs unknown) (unknown) (no (unknown) (unknown) Initial Vital (units ( unknown) date) Signs: unknown) (unknown) (no (unknown) (unknown) [facility] (units (unknown) date) [address] [place] [address] unknown) [place] [address] (unknown) (no (unknown) (unknown) Lipase Stat (units (un known) date) unknown) (unknown) (no (unknown) (unknown) MSK: moves all (units (unknown) date) extremities, unknown) neurovascularly intact, no weakness, normal tone (unknown) (no (unknown) (unknown) Medical History (units (unknown) date) (Updated 03/27/22 unknown) @ 14:10 by FLORI Portillo) (unknown) (no (unknown) (unknown) Medication (units (unk nown) date) Instructions unknown) Recorded Confirmed (unknown) (no (unknown) (unknown) Mode of arrival: (units (unknown) date) Ambulatory unknown) (unknown) (no (unknown) (unknown) NEGATIVE (units (unkno wn) date) unknown) (unknown) (no (unknown) (unknown) Narrative (units (unkn own) date) unknown) (unknown) (no (unknown) (unknown) Narrative: (units (unk nown) date) unknown) (unknown) (no (unknown) (unknown) Neuro: normal (units ( unknown) date) speech and unknown) cognition, A+O x3, ambulatory, clear speech (unknown) (no (unknown) (unknown) No Action (units (unkn own) date) unknown) (unknown) (no (unknown) (unknown) No Known Home (units ( unknown) date) Medications unknown) 03/27/22 (unknown) (no (unknown) (unknown) No Known Home (units ( unknown) date) Medications unknown) (unknown) (no (unknown) (unknown) None Seen (units (unkn own) date) unknown) (unknown) (no (unknown) (unknown) None Seen (units (unkn own) date) unknown) (unknown) (no (unknown) (unknown) Ordered: (units (unkno wn) date) unknown) (unknown) (no (unknown) (unknown) Orders (units (unkno wn) date) unknown) (unknown) (no (unknown) (unknown) Oxygen Delivery (units (unknown) date) Method 03/27/22 unknown) 13:27 (unknown) (no (unknown) (unknown) Oxygen Delivery (units (unknown) date) Method Room Air unknown) (unknown) (no (unknown) (unknown) Patient (units (unkno wn) date) Disposition: Home unknown) (unknown) (no (unknown) (unknown) Patient History (units (unknown) date) unknown) (unknown) (no (unknown) (unknown) Patient: (units (unkno wn) date) Carmen Díaz Samantha unknown) MR#: M (unknown) (no (unknown) (unknown) Pneumonia (units (unkn own) date) unknown) (unknown) (no (unknown) (unknown) Test (units (unknown) date) Serum,Qual Stat unknown) (unknown) (no (unknown) (unknown) Prescriptions: (units (unknown) date) unknown) (unknown) (no (unknown) (unknown) Psych: mental (units ( unknown) date) status is grossly unknown) normal, congruent mood, normal affect, pleasant (unknown) (no (unknown) (unknown) Pulse Oximetry 99 (units (unknown) date) 03/27/22 13:27 unknown) (unknown) (no (unknown) (unknown) Pulse Oximetry 99 (units (unknown) date) unknown) (unknown) (no (unknown) (unknown) Pulse Rate 106 H (units (unknown) date) 03/27/22 13:27 unknown) (unknown) (no (unknown) (unknown) Pulse Rate 106 H (units (unknown) date) unknown) (unknown) (no (unknown) (unknown) Referrals: (units (unk nown) date) unknown) (unknown) (no (unknown) (unknown) Related Data (units (u nknown) date) unknown) (unknown) (no (unknown) (unknown) Respiratory Rate (units (unknown) date) 16 03/27/22 13:27 unknown) (unknown) (no (unknown) (unknown) Respiratory Rate (units (unknown) date) 16 unknown) (unknown) (no (unknown) (unknown) Respiratory: (units (u nknown) date) normal effort, unknown) able to speak in complete sentences, without (unknown) (no (unknown) (unknown) Review of Systems (units (unknown) date) unknown) (unknown) (no (unknown) (unknown) Review of systems (units (unknown) date) is negative for unknown) acute abnormalities unless otherwise noted in (unknown) (no (unknown) (unknown) Reviewed vitals (units (unknown) date) signs and nursing unknown) notes. (unknown) (no (unknown) (unknown) Signed By: (units (unk nown) date) unknown) (unknown) (no (unknown) (unknown) Skin: brisk (units (un known) date) capillary refill, unknown) without pallor or erythema (unknown) (no (unknown) (unknown) Smoking Status: (units (unknown) date) Never smoker unknown) (unknown) (no (unknown) (unknown) Social History (units (unknown) date) (Reviewed 03/27/22 unknown) @ 14:08 by Mary Cm [facility]) (unknown) (no (unknown) (unknown) Source: patient (units (unknown) date) unknown) (unknown) (no (unknown) (unknown) Stated Complaint: (units (unknown) date) abd pain since unknown) (unknown) (no (unknown) (unknown) Substance Use (units ( unknown) date) Type: does not use unknown) (unknown) (no (unknown) (unknown) Surgical History (units (unknown) date) (Reviewed 03/27/22 unknown) @ 14:08 by Mary Cm [facility]) (unknown) (no (unknown) (unknown) Temperature 98.5 (units (unknown) date) F 03/27/22 13:27 unknown) (unknown) (no (unknown) (unknown) Temperature 98.5 (units (unknown) date) F unknown) (unknown) (no (unknown) (unknown) This is a (units (unkn own) date) 31-year-old female unknown) with history of type 2 diabetes, on Jardiance, who (unknown) (no (unknown) (unknown) Time Seen by (units (u nknown) date) Provider: 03/27/22 unknown) 13:36 (unknown) (no (unknown) (unknown) Urine Microscopic (units (unknown) date) Stat unknown) (unknown) (no (unknown) (unknown) Vital Signs - 8 (units (unknown) date) hr unknown) (unknown) (no (unknown) (unknown) Vital Signs (units (un known) date) unknown) (unknown) (no (unknown) (unknown) Vital signs: (units (u nknown) date) unknown) (unknown) (no (unknown) (unknown) YELLOW (units (unkno wn) date) unknown) (unknown) (no (unknown) (unknown) YELLOW (units (unkno wn) date) unknown) (unknown) (no (unknown) (unknown) alcohol intake (units (unknown) date) frequency: 0-2 unknown) drinks per day (unknown) (no (unknown) (unknown) and cooperative (units (unknown) date) unknown) (unknown) (no (unknown) (unknown) cyst with ovarian (units (unknown) date) cystectomy x1. unknown) (unknown) (no (unknown) (unknown) for the last 4 (units (unknown) date) days. 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 Denies urinary frequency (unknown) (no (unknown) (unknown) leave by 16:00 (units (unknown) date) today. unknown) (unknown) (no (unknown) (unknown) morphine Allergy (units (unknown) date) Severe ITCHING unknown) Verified 03/27/22 13:30 (unknown) (no (unknown) (unknown) or urgency, (units (un known) date) denies flank pain, unknown) shortness of breath, chest pain, back pain. (unknown) (no (unknown) (unknown) presents to (units (unk nown) date) emergency unknown) department complaining of suprapubic fullness and pressure (unknown) (no (unknown) (unknown) tenderness or (units ( unknown) date) exquisite unknown) tenderness with exam. (unknown) (no (unknown) (unknown) wheezing, (units (unkn own) date) stridor, or unknown) abnormal breath sounds. No retractions or tachypnea. Result panel 9 (unknown) (no (unknown) (unknown) (no value) (units (unk nown) date) unknown) (unknown) (no (unknown) (unknown) 03/27/22 (units (unkno wn) date) unknown) (unknown) (no (unknown) (unknown) [address] [place] [address] (units (unknown) date) unknown) (unknown) (no (unknown) (unknown) 9 cc. The (units (unkn own) date) ovaries have a unknown) normal sonographic appearance. Less than 12 follicles (unknown) (no (unknown) (unknown) Accession (units (unkn own) date) Number: unknown) [id number] (unknown) (no (unknown) (unknown) Additional (units (unk nown) date) endovaginal unknown) scanning was necessary due to incomplete visualization (unknown) (no (unknown) (unknown) Age/Sex: 31 / F (units (unknown) date) Date of Service: unknown) (unknown) (no (unknown) (unknown) ODILIA [place] (units ( unknown) date) [id number] unknown) (unknown) (no (unknown) (unknown) Approved by: (units (u nknown) date) Geraldine Goodman unknownGenie Miranda on 03/27/2022 at 16:09 (unknown) (no (unknown) (unknown) COMPARISON: (units (un known) date) None. unknown) (unknown) (no (unknown) (unknown) : 1990 (units (unknown) date) Acct:[id number] unknown) (unknown) (no (unknown) (unknown) Dictated by: (units (u nknown) date) jeremy Ugalde M.D. on 03/27/2022 at 16:08 (unknown) (no (unknown) (unknown) FINDINGS: (units (unkn own) date) unknown) (unknown) (no (unknown) (unknown) IMPRESSION: (units (un known) date) Unremarkable unknown) exam. (unknown) (no (unknown) (unknown) INDICATIONS: (units (u nknown) date) suprapubic unknown) tenderness, not bladder infection, hx ovarian cys (unknown) (no (unknown) (unknown) [facility] (units (unknown) date) unknown) (unknown) (no (unknown) (unknown) Loc: ED (units (unkno wn) date) unknown) (unknown) (no (unknown) (unknown) [id number] (units (unk nown) date) unknown) (unknown) (no (unknown) (unknown) Ordering (units (unkno wn) date) Provider: unknown) Crew,Mary RUBY (unknown) (no (unknown) (unknown) Other: No (units (unkn own) date) pathologic free unknown) abdominal or pelvic fluid. (unknown) (no (unknown) (unknown) Ovaries: The (units (u nknown) date) right ovary unknown) measures 2.7 x 1.9 x 1.7 cm, with a calculated (unknown) (no (unknown) (unknown) PROCEDURE: US (units ( unknown) date) PELVIC COMPLETE unknown) (unknown) (no (unknown) (unknown) Patient: (units (unkno wn) date) BreCarmen garcia Samantha unknown) MR#: (unknown) (no (unknown) (unknown) Procedure: US (units ( unknown) date) pelvic complete unknown) (unknown) (no (unknown) (unknown) Real-time (units (unkn own) date) scanning was unknown) performed of the pelvic organs, with image (unknown) (no (unknown) (unknown) Signed (units (unkno wn) date) unknown) (unknown) (no (unknown) (unknown) TECHNIQUE: (units (unk nown) date) unknown) (unknown) (no (unknown) (unknown) To assist (units (unkn own) date) unknown) (unknown) (no (unknown) (unknown) Ultrasound (units (unk nown) date) Report unknown) (unknown) (no (unknown) (unknown) Uterus: Uterus (units (unknown) date) is anteverted and unknown) normal in size at 7.6 x 5.3 x 3.1 cm. The (unknown) (no (unknown) (unknown) We strive to (units (u nknown) date) produce accurate, unknown) complete, and clear reports of imaging services. (unknown) (no (unknown) (unknown) adnexal and (units (un known) date) endometrial unknown) structures by transabdominal scanning. (unknown) (no (unknown) (unknown) and voice (units (unkn own) date) recognition unknown) software. Therefore, it may contain abnormal punctuation, (unknown) (no (unknown) (unknown) can be (units (unkno wn) date) unknown) (unknown) (no (unknown) (unknown) documentation. (units (unknown) date) unknown) (unknown) (no (unknown) (unknown) homogeneous. The (units (unknown) date) endometrium unknown) measures 6 mm combined thickness. (unknown) (no (unknown) (unknown) inaccuracies. (units ( unknown) date) unknown) (unknown) (no (unknown) (unknown) insertions (units (unk nown) date) and/or omissions. unknown) Occasional wrong-word or sound-alike substitutions (unknown) (no (unknown) (unknown) may (units (unkno wn) date) unknown) (unknown) (no (unknown) (unknown) myometrium is (units ( unknown) date) unknown) (unknown) (no (unknown) (unknown) occur. Though we (units (unknown) date) review the report unknown) and make efforts to correct it, we do (unknown) (no (unknown) (unknown) of 5 cc. The (units (u nknown) date) left ovary unknown) measures 3.2 x 2.1 x 2.5 cm, with a calculated ovarian (unknown) (no (unknown) (unknown) of the (units (unkno wn) date) unknown) (unknown) (no (unknown) (unknown) ovarian volume (units (unknown) date) unknown) (unknown) (no (unknown) (unknown) recommend that (units (unknown) date) unknown) (unknown) (no (unknown) (unknown) seen in each (units (u nknown) date) ovary. No adnexal unknown) masses are seen. (unknown) (no (unknown) (unknown) templates (units (unkn own) date) unknown) (unknown) (no (unknown) (unknown) the report be (units ( unknown) date) read carefully in unknown) proper context to recognize any text (unknown) (no (unknown) (unknown) us in improving (units (unknown) date) patient care, unknown) this report was composed using standard report (unknown) (no (unknown) (unknown) volume of (units (unkn own) date) unknown) Result panel 10 (unknown) (no date) (unknown) (unknown) 0 /ul (unkn own) (unknown) (no date) (unknown) (unknown) 0.2 % (unkn own) (unknown) (no date) (unknown) (unknown) 1.6 % (unkn own) (unknown) (no date) (unknown) (unknown) 100 /ul (unkn own) (unknown) (no date) (unknown) (unknown) 12.9 % (unkn own) (unknown) (no date) (unknown) (unknown) 14.9 g/dl (unkn own) (unknown) (no date) (unknown) (unknown) 247 x10 3/ul (unkn own) (unknown) (no date) (unknown) (unknown) 29.1 pg (unkn own) (unknown) (no date) (unknown) (unknown) 3100 /ul (unkn own) (unknown) (no date) (unknown) (unknown) 33.4 % (unkn own) (unknown) (no date) (unknown) (unknown) 35.2 % (unkn own) (unknown) (no date) (unknown) (unknown) 4.6 % (unkn own) (unknown) (no date) (unknown) (unknown) 400 /ul (unkn own) (unknown) (no date) (unknown) (unknown) 44.6 % (unkn own) (unknown) (no date) (unknown) (unknown) 5.11 x10 6/ul (unkn own) (unknown) (no date) (unknown) (unknown) 5100 /ul (unkn own) (unknown) (no date) (unknown) (unknown) 58.4 % (unkn own) (unknown) (no date) (unknown) (unknown) 8.7 x10 3/ul (unkn own) (unknown) (no date) (unknown) (unknown) 87.2 fl (unkn own) Result panel 11 (unknown) (no date) (unknown) (unknown) > 60 ml/min (unkn own) (unknown) (no date) (unknown) (unknown) > 60 ml/min (unkn own) (unknown) (no date) (unknown) (unknown) 0.3 mg/dl (unkn own) (unknown) (no date) (unknown) (unknown) 0.58 mg/dl (unkn own) (unknown) (no date) (unknown) (unknown) 1.4 (units unknown) (unknown) (unknown) (no date) (unknown) (unknown) 10 mg/dl (unkn own) (unknown) (no date) (unknown) (unknown) 102 mmol/l (unkn own) (unknown) (no date) (unknown) (unknown) 116 u/l (unkn own) (unknown) (no date) (unknown) (unknown) 130 mg/dl (unkn own) (unknown) (no date) (unknown) (unknown) 130 mg/dl (unkn own) (unknown) (no date) (unknown) (unknown) 137 mmol/l (unkn own) (unknown) (no date) (unknown) (unknown) 17.2 (units unknown) (unknown) (unknown) (no date) (unknown) (unknown) 27 mmol/l (unkn own) (unknown) (no date) (unknown) (unknown) 3.1 g/dl (unkn own) (unknown) (no date) (unknown) (unknown) 32 iu/l (unkn own) (unknown) (no date) (unknown) (unknown) 37 iu/l (unkn own) (unknown) (no date) (unknown) (unknown) 4.2 g/dl (unkn own) (unknown) (no date) (unknown) (unknown) 4.4 mmol/l (unkn own) (unknown) (no date) (unknown) (unknown) 7.3 g/dl (unkn own) (unknown) (no date) (unknown) (unknown) 9.2 mg/dl (unkn own) (unknown) (no date) (unknown) (unknown) 90 u/l (unkn own) Result panel 12 (unknown) (no date) (unknown) (unknown) Negative (units (unkn own) unknown) Result panel 13 (unknown) (no (unknown) (unknown) (no value) (units (unk nown) date) unknown) (unknown) (no (unknown) (unknown) [id number] (units (unkn own) date) unknown) (unknown) (no (unknown) (unknown) 03/27/22 03/27/22 (units (unknown) date) 03/27/22 unknown) Range/Units (unknown) (no (unknown) (unknown) 03/27/22 14:11 (units (unknown) date) unknown) (unknown) (no (unknown) (unknown) 03/27/22 14:17 (units (unknown) date) unknown) (unknown) (no (unknown) (unknown) 03/27/22 14:18 (units (unknown) date) unknown) (unknown) (no (unknown) (unknown) 03/27/22 14:44 (units (unknown) date) unknown) (unknown) (no (unknown) (unknown) 03/27/22 15:17 (units (unknown) date) unknown) (unknown) (no (unknown) (unknown) 03/27/22 (units (unkno wn) date) unknown) (unknown) (no (unknown) (unknown) 13:24 03/27/22 (units (unknown) date) unknown) (unknown) (no (unknown) (unknown) 13:25 (units (unkno wn) date) unknown) (unknown) (no (unknown) (unknown) 13:27 03/27/22 (units (unknown) date) unknown) (unknown) (no (unknown) (unknown) 13:30 03/27/22 (units (unknown) date) unknown) (unknown) (no (unknown) (unknown) 14:00 (units (unkno wn) date) unknown) (unknown) (no (unknown) (unknown) 14:11 14:17 14:17 (units (unknown) date) unknown) (unknown) (no (unknown) (unknown) ALT 37 H (<35) (units (unknown) date) IU/L unknown) (unknown) (no (unknown) (unknown) AST 32 (14-36) (units (unknown) date) IU/L unknown) (unknown) (no (unknown) (unknown) Acetaminophen (units ( unknown) date) (Acetaminophen 325 unknown) Mg Tablet) 650 mg PO NOW ONE (unknown) (no (unknown) (unknown) Acute suprapubic (units (unknown) date) pain unknown) (unknown) (no (unknown) (unknown) Age/Sex: 31 / F (units (unknown) date) unknown) (unknown) (no (unknown) (unknown) Albumin 4.2 (units (un known) date) (3.5-5.0) g/dL unknown) (unknown) (no (unknown) (unknown) Albumin/Globulin (units (unknown) date) Ratio 1.4 unknown) (1.0-2.8) (unknown) (no (unknown) (unknown) Alkaline (units (unkno wn) date) Phosphatase 90 unknown) (38-126) U/L (unknown) (no (unknown) (unknown) Allergies (units (unkn own) date) unknown) (unknown) (no (unknown) (unknown) Allergy/AdvReac (units (unknown) date) Type Severity unknown) Reaction Status Date / Time (unknown) (no (unknown) (unknown) Anxiety (units (unkno wn) date) unknown) (unknown) (no (unknown) (unknown) BUN 10 (7-17) (units ( unknown) date) mg/dL unknown) (unknown) (no (unknown) (unknown) BUN/Creatinine (units (unknown) date) Ratio 17.2 (6-22) unknown) (unknown) (no (unknown) (unknown) Baso # (Auto) 0 (units (unknown) date) (0-100) /uL unknown) (unknown) (no (unknown) (unknown) Baso % (Auto) 0.2 (units (unknown) date) (0-2) % unknown) (unknown) (no (unknown) (unknown) Blood Pressure (units (unknown) date) 129/82 128/77 unknown) (unknown) (no (unknown) (unknown) Blood Pressure (units (unknown) date) 136/76 138/76 unknown) (unknown) (no (unknown) (unknown) Blood Pressure (units (unknown) date) 138/76 03/27/22 unknown) 13:24 (unknown) (no (unknown) (unknown) Blood Pressure (units (unknown) date) unknown) (unknown) (no (unknown) (unknown) CBC Auto Diff (units ( unknown) date) [Complete Blood unknown) Count AUTO DIFF] Stat (unknown) (no (unknown) (unknown) CMP (units (unkno wn) date) [Comprehensive unknown) Metabolic Panel] Stat (unknown) (no (unknown) (unknown) Calcium 9.2 (units (un known) date) (8.4-10.2) mg/dL unknown) (unknown) (no (unknown) (unknown) Carbon Dioxide 27 (units (unknown) date) (22-32) mmol/L unknown) (unknown) (no (unknown) (unknown) Cardiovascular: (units (unknown) date) regular rate and unknown) rhythm, no peripheral edema, warm extremities (unknown) (no (unknown) (unknown) Chastity Little, (units (unknown) date) MD [Primary Care unknown) Provider] (unknown) (no (unknown) (unknown) Chief Complaint: (units (unknown) date) Abdominal Pain unknown) (unknown) (no (unknown) (unknown) Chloride 102 (units (u nknown) date) (98-107) mmol/L unknown) (unknown) (no (unknown) (unknown) Clinical (units (unkno wn) date) Impression: unknown) (unknown) (no (unknown) (unknown) Course (units (unkno wn) date) unknown) (unknown) (no (unknown) (unknown) Creatinine 0.58 (units (unknown) date) (0.52-1.04) mg/dL unknown) (unknown) (no (unknown) (unknown) : 1990 (units (unknown) date) Acct:[id number] unknown) (unknown) (no (unknown) (unknown) Date of Service: (units (unknown) date) 03/27/22 unknown) (unknown) (no (unknown) (unknown) Denies any upper (units (unknown) date) abdominal pain, unknown) has a history of cholecystectomy and ovarian (unknown) (no (unknown) (unknown) Denies any upper (units (unknown) date) abdominal pain, unknown) nausea or vomiting. States that she needs to (unknown) (no (unknown) (unknown) Departure (units (unkn own) date) unknown) (unknown) (no (unknown) (unknown) Depression (units (unk nown) date) unknown) (unknown) (no (unknown) (unknown) Discharge Plan (units (unknown) date) unknown) (unknown) (no (unknown) (unknown) Discontinued (units (u nknown) date) Medications unknown) (unknown) (no (unknown) (unknown) Documented By: (units (unknown) date) ZGG unknown) (unknown) (no (unknown) (unknown) ED Orders (units (unkn own) date) unknown) (unknown) (no (unknown) (unknown) ER Physician: (units ( unknown) date) Mary Cm unknown) 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 (unknown) (no (unknown) (unknown) Emergency Report (units (unknown) date) unknown) (unknown) (no (unknown) (unknown) Eos # (Auto) 100 (units (unknown) date) (0-450) /uL unknown) (unknown) (no (unknown) (unknown) Eos % (Auto) 1.6 (units (unknown) date) L (2-4) % unknown) (unknown) (no (unknown) (unknown) Estimated GFR > (units (unknown) date) 60 (>60) mL/min unknown) (unknown) (no (unknown) (unknown) Exam Narrative: (units (unknown) date) unknown) (unknown) (no (unknown) (unknown) Exam (units (unkno wn) date) unknown) (unknown) (no (unknown) (unknown) GI: abdomen soft, (units (unknown) date) nontender to unknown) palpation, nondistended, without masses, rebound (unknown) (no (unknown) (unknown) /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 (units (unknown) date) exam completed, unknown) patient has white vaginal discharge appears to (unknown) (no (unknown) (unknown) General (units (unkno wn) date) unknown) (unknown) (no (unknown) (unknown) General: (units (unkno wn) date) cooperative, unknown) comfortable, in no acute distress, well groomed (unknown) (no (unknown) (unknown) Globulin 3.1 (units (u nknown) date) (1.7-4.1) g/dL unknown) (unknown) (no (unknown) (unknown) Glucose 130 H (units ( unknown) date) (70-100) mg/dL unknown) (unknown) (no (unknown) (unknown) HEENT: (units (unkno wn) date) symmetrical facial unknown) expressions, moist mucous membranes (unknown) (no (unknown) (unknown) HPI - Abdominal (units (unknown) date) Pain unknown) (unknown) (no (unknown) (unknown) HPI narrative: (units (unknown) date) unknown) (unknown) (no (unknown) (unknown) HPI (units (unkno wn) date) unknown) (unknown) (no (unknown) (unknown) Hct 44.6 (36-46) (units (unknown) date) % unknown) (unknown) (no (unknown) (unknown) Hgb 14.9 (units (unkno wn) date) (12.0-16.0) g/dL unknown) (unknown) (no (unknown) (unknown) History of (units (unk nown) date) Present Illness unknown) (unknown) (no (unknown) (unknown) History of (units (unk nown) date) removal of ovarian unknown) cyst (unknown) (no (unknown) (unknown) Home Medications (units (unknown) date) unknown) (unknown) (no (unknown) (unknown) Hx of (units (unkno wn) date) cholecystectomy unknown) (unknown) (no (unknown) (unknown) Initial Vital (units ( unknown) date) Signs unknown) (unknown) (no (unknown) (unknown) Initial Vital (units ( unknown) date) Signs: unknown) (unknown) (no (unknown) (unknown) [facility] (units (unknown) date) [address] unknown) [place] [address] (unknown) (no (unknown) (unknown) Jardiance, UA was (units (unknown) date) negative both POC unknown) on the urine dip and microscopy for WBCs, (unknown) (no (unknown) (unknown) Ketorolac (units (unkn own) date) Tromethamine unknown) (Ketorolac 10 Mg Tablet) 10 mg PO NOW ONE (unknown) (no (unknown) (unknown) Lab Data (units (unkno wn) date) unknown) (unknown) (no (unknown) (unknown) Lab Results (units (un known) date) unknown) (unknown) (no (unknown) (unknown) Labs: (units (unkno wn) date) unknown) (unknown) (no (unknown) (unknown) Last Admin: (units (un known) date) 03/27/22 14:36 unknown) Dose: 10 mg (unknown) (no (unknown) (unknown) Last Admin: (units (un known) date) 03/27/22 14:36 unknown) Dose: 650 mg (unknown) (no (unknown) (unknown) Last Admin: (units (un known) date) 03/27/22 14:37 unknown) Dose: 100 mg (unknown) (no (unknown) (unknown) Lipase 116 (units (unk nown) date) (23-300) U/L unknown) (unknown) (no (unknown) (unknown) Lipase Stat (units (un known) date) unknown) (unknown) (no (unknown) (unknown) Lymph # (Auto) (units (unknown) date) 3100 ([id number]) unknown) /uL (unknown) (no (unknown) (unknown) Lymph % (Auto) (units (unknown) date) 35.2 (25-40) % unknown) (unknown) (no (unknown) (unknown) MCH 29.1 (26-34) (units (unknown) date) PG unknown) (unknown) (no (unknown) (unknown) MCHC 33.4 (30-36) (units (unknown) date) % unknown) (unknown) (no (unknown) (unknown) MCV 87.2 (80-100) (units (unknown) date) fL unknown) (unknown) (no (unknown) (unknown) MDM - Abdominal (units (unknown) date) Pain unknown) (unknown) (no (unknown) (unknown) MDM Narrative (units ( unknown) date) unknown) (unknown) (no (unknown) (unknown) MSK: moves all (units (unknown) date) extremities, unknown) neurovascularly intact, no weakness, normal tone (unknown) (no (unknown) (unknown) Medical History (units (unknown) date) (Updated 03/27/22 unknown) @ 14:10 by Mary Cm [facility]) (unknown) (no (unknown) (unknown) Medical decision (units (unknown) date) making narrative: unknown) (unknown) (no (unknown) (unknown) Medication (units (unk nown) date) Instructions unknown) Recorded Confirmed (unknown) (no (unknown) (unknown) Mode of arrival: (units (unknown) date) Ambulatory unknown) (unknown) (no (unknown) (unknown) Gage # (Auto) 400 (units (unknown) date) (0-900) /uL unknown) (unknown) (no (unknown) (unknown) Gage % (Auto) 4.6 (units (unknown) date) (3-14) % unknown) (unknown) (no (unknown) (unknown) Narrative (units (unkn own) date) unknown) (unknown) (no (unknown) (unknown) Narrative: (units (unk nown) date) unknown) (unknown) (no (unknown) (unknown) Neuro: normal (units ( unknown) date) speech and unknown) cognition, A+O x3, ambulatory, clear speech (unknown) (no (unknown) (unknown) Neut # (Auto) (units ( unknown) date) 5100 (3413-1413) unknown) /uL (unknown) (no (unknown) (unknown) Neut % (Auto) (units ( unknown) date) 58.4 (50-75) % unknown) (unknown) (no (unknown) (unknown) No Action (units (unkn own) date) unknown) (unknown) (no (unknown) (unknown) No Known Home (units ( unknown) date) Medications unknown) 03/27/22 (unknown) (no (unknown) (unknown) No Known Home (units ( unknown) date) Medications unknown) (unknown) (no (unknown) (unknown) Ordered: (units (unkno wn) date) unknown) (unknown) (no (unknown) (unknown) Orders (units (unkno wn) date) unknown) (unknown) (no (unknown) (unknown) Oxygen Delivery (units (unknown) date) Method Room Air unknown) (unknown) (no (unknown) (unknown) Oxygen Delivery (units (unknown) date) Method unknown) (unknown) (no (unknown) (unknown) Patient (units (unkno wn) date) Disposition: Home unknown) (unknown) (no (unknown) (unknown) Patient History (units (unknown) date) unknown) (unknown) (no (unknown) (unknown) Patient reports (units (unknown) date) that she has a unknown) history of bacterial vaginosis as well. (unknown) (no (unknown) (unknown) Patient: (units (unkno wn) date) Carmen Díaz unknown) MR#: M (unknown) (no (unknown) (unknown) Phenazopyridine (units (unknown) date) HCl unknown) (Phenazopyridine 100 Mg Tablet) 100 mg PO NOW ONE (unknown) (no (unknown) (unknown) Plt Count 247 (units ( unknown) date) (150-400) X103/uL unknown) (unknown) (no (unknown) (unknown) Pneumonia (units (unkn own) date) unknown) (unknown) (no (unknown) (unknown) Potassium 4.4 (units ( unknown) date) (3.4-5.1) mmol/L unknown) (unknown) (no (unknown) (unknown) Test (units (unknown) date) Serum,Qual Stat unknown) (unknown) (no (unknown) (unknown) Prescriptions: (units (unknown) date) unknown) (unknown) (no (unknown) (unknown) Psych: mental (units ( unknown) date) status is grossly unknown) normal, congruent mood, normal affect, pleasant (unknown) (no (unknown) (unknown) Pulse Oximetry 96 (units (unknown) date) unknown) (unknown) (no (unknown) (unknown) Pulse Oximetry 99 (units (unknown) date) 97 unknown) (unknown) (no (unknown) (unknown) Pulse Rate 106 H (units (unknown) date) 107 H unknown) (unknown) (no (unknown) (unknown) Pulse Rate 106 H (units (unknown) date) unknown) (unknown) (no (unknown) (unknown) Pulse Rate 108 H (units (unknown) date) unknown) (unknown) (no (unknown) (unknown) RBC 5.11 (units (unkno wn) date) (4.0-5.2) X106/uL unknown) (unknown) (no (unknown) (unknown) RDW 12.9 (units (unkno wn) date) (11.6-14.8) % unknown) (unknown) (no (unknown) (unknown) Referrals: (units (unk nown) date) unknown) (unknown) (no (unknown) (unknown) Related Data (units (u nknown) date) unknown) (unknown) (no (unknown) (unknown) Respiratory Rate (units (unknown) date) 16 unknown) (unknown) (no (unknown) (unknown) Respiratory Rate (units (unknown) date) unknown) (unknown) (no (unknown) (unknown) Respiratory: (units (u nknown) date) normal effort, unknown) able to speak in complete sentences, without (unknown) (no (unknown) (unknown) Result diagrams: (units (unknown) date) unknown) (unknown) (no (unknown) (unknown) Review of Systems (units (unknown) date) unknown) (unknown) (no (unknown) (unknown) Review of systems (units (unknown) date) is negative for unknown) acute abnormalities unless otherwise noted in (unknown) (no (unknown) (unknown) Reviewed vitals (units (unknown) date) signs and nursing unknown) notes. (unknown) (no (unknown) (unknown) Signed By: (units (unk nown) date) unknown) (unknown) (no (unknown) (unknown) Skin: brisk (units (un known) date) capillary refill, unknown) without pallor or erythema (unknown) (no (unknown) (unknown) Smoking Status: (units (unknown) date) Never smoker unknown) (unknown) (no (unknown) (unknown) Social History (units (unknown) date) (Reviewed 03/27/22 unknown) @ 14:08 by Mary Cm 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) (unknown) (no (unknown) (unknown) Sodium 137 (units (unk nown) date) (137-145) mmol/L unknown) (unknown) (no (unknown) (unknown) Source: patient (units (unknown) date) unknown) (unknown) (no (unknown) (unknown) Stated Complaint: (units (unknown) date) abd pain since unknown) (unknown) (no (unknown) (unknown) Stop: 03/27/22 (units (unknown) date) 14:11 unknown) (unknown) (no (unknown) (unknown) Substance Use (units ( unknown) date) Type: does not use unknown) (unknown) (no (unknown) (unknown) Surgical History (units (unknown) date) (Reviewed 03/27/22 unknown) @ 14:08 by FLORI Portillo) (unknown) (no (unknown) (unknown) Temperature 98.5 (units (unknown) date) F unknown) (unknown) (no (unknown) (unknown) Temperature (units (un known) date) unknown) (unknown) (no (unknown) (unknown) This is a (units (unkn own) date) 31-year-old female unknown) presents to emergency department complaining of (unknown) (no (unknown) (unknown) This is a (units (unkn own) date) 31-year-old female unknown) with history of type 2 diabetes, on Jardiance, who (unknown) (no (unknown) (unknown) Time Seen by (units (u nknown) date) Provider: 03/27/22 unknown) 13:36 (unknown) (no (unknown) (unknown) Total Bilirubin (units (unknown) date) 0.3 (0.2-1.3) unknown) mg/dL (unknown) (no (unknown) (unknown) Total Protein 7.3 (units (unknown) date) (6.3-8.2) g/dL unknown) (unknown) (no (unknown) (unknown) Transvaginal (units (u nknown) date) ultrasound unknown) (unknown) (no (unknown) (unknown) US transvaginal (units (unknown) date) Stat unknown) (unknown) (no (unknown) (unknown) Ur Culture (units (unk nown) date) Indicated? Cult unknown) not indicated (unknown) (no (unknown) (unknown) Ur Leukocyte (units (u nknown) date) Esterase Negative unknown) (NEGATIVE) (unknown) (no (unknown) (unknown) Ur Specific (units (un known) date) [place] 1.015 unknown) (1.000-1.035) (unknown) (no (unknown) (unknown) Ur Squamous Epith (units (unknown) date) Cells 0-1 /hpf unknown) (0-5/HPF) (unknown) (no (unknown) (unknown) Urinalysis and (units (unknown) date) Microscopic Stat unknown) (unknown) (no (unknown) (unknown) Urine Appearance (units (unknown) date) Clear unknown) (unknown) (no (unknown) (unknown) Urine Bacteria (units (unknown) date) None seen (None) unknown) (unknown) (no (unknown) (unknown) Urine Bilirubin (units (unknown) date) Negative unknown) (NEGATIVE) (unknown) (no (unknown) (unknown) Urine Color (units (un known) date) Yellow unknown) (unknown) (no (unknown) (unknown) Urine Glucose (units ( unknown) date) (UA) 3+ H unknown) (Negative) g/dL (unknown) (no (unknown) (unknown) Urine Ketones (units ( unknown) date) Negative unknown) (NEGATIVE) (unknown) (no (unknown) (unknown) Urine Nitrate (units ( unknown) date) Negative unknown) (Negative) (unknown) (no (unknown) (unknown) Urine Occult (units (u nknown) date) Blood Negative unknown) (Negative) (unknown) (no (unknown) (unknown) Urine Protein (units ( unknown) date) Negative unknown) (Negative) (unknown) (no (unknown) (unknown) Urine RBC None (units (unknown) date) seen (0-5/HPF) unknown) (unknown) (no (unknown) (unknown) Urine (units (unkno wn) date) Urobilinogen 0.2 unknown) (0.2) E.U./dL (unknown) (no (unknown) (unknown) Urine WBC None (units (unknown) date) seen (0-5/HPF) unknown) (unknown) (no (unknown) (unknown) Urine pH 5.0 (units (u nknown) date) (4.5-8.0) unknown) (unknown) (no (unknown) (unknown) Vital Signs - 8 (units (unknown) date) hr unknown) (unknown) (no (unknown) (unknown) Vital Signs (units (un known) date) unknown) (unknown) (no (unknown) (unknown) Vital signs: (units (u nknown) date) unknown) (unknown) (no (unknown) (unknown) WBC 8.7 (units (unkno wn) date) (4.5-11.0) X103/uL unknown) (unknown) (no (unknown) (unknown) Wet Prep Tric BV (units (unknown) date) [place] Stat unknown) (unknown) (no (unknown) (unknown) Wet prep is (units (un known) date) positive for unknown) (unknown) (no (unknown) (unknown) [Embedded Image (units (unknown) date) Not Available] unknown) (unknown) (no (unknown) (unknown) abdominal pain. (units (unknown) date) Has a history of unknown) bacterial vaginosis, cholecystectomy, (unknown) (no (unknown) (unknown) alcohol intake (units (unknown) date) frequency: 0-2 unknown) drinks per day (unknown) (no (unknown) (unknown) and cooperative (units (unknown) date) unknown) (unknown) (no (unknown) (unknown) bacteria, (units (unkn own) date) nitrites, and unknown) RBCs. Patient denies any recent fever or other (unknown) (no (unknown) (unknown) be more than a (units (unknown) date) normal amount, unknown) without adnexal tenderness (unknown) (no (unknown) (unknown) cyst with ovarian (units (unknown) date) cystectomy x1. unknown) (unknown) (no (unknown) (unknown) for the last 4 (units (unknown) date) days. 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 Denies urinary frequency (unknown) (no (unknown) (unknown) leave by 16:00 (units (unknown) date) today. unknown) (unknown) (no (unknown) (unknown) morphine Allergy (units (unknown) date) Severe ITCHING unknown) Verified 03/27/22 13:30 (unknown) (no (unknown) (unknown) or urgency, (units (un known) date) denies flank pain, unknown) shortness of breath, chest pain, back pain. (unknown) (no (unknown) (unknown) presents to (units (unk nown) date) emergency unknown) department complaining of suprapubic fullness and pressure (unknown) (no (unknown) (unknown) section and (units (un known) date) ovarian cyst unknown) drainage. (unknown) (no (unknown) (unknown) suprapubic (units (unk nown) date) tenderness and unknown) pressure for the last 4 days. She is diabetic, on (unknown) (no (unknown) (unknown) tenderness or (units ( unknown) date) exquisite unknown) tenderness with exam. (unknown) (no (unknown) (unknown) wheezing, (units (unkn own) date) stridor, or unknown) abnormal breath sounds. No retractions or tachypnea. Result panel 14 (unknown) (no date) (unknown) (unknown) (no value) (units (un known) unknown) (unknown) (no date) (unknown) (unknown) Moderate (units (unkn own) poly WBCs unknown) (unknown) (no date) (unknown) (unknown) None seen (units (unk nown) unknown) Result panel 15 (unknown) (no (unknown) (unknown) (no value) (units (unk nown) date) unknown) (unknown) (no (unknown) (unknown) #: [phone] (units (un known) date) unknown) (unknown) (no (unknown) (unknown) *If you do not (units (unknown) date) have a primary unknown) care provider please contact [phone] to (unknown) (no (unknown) (unknown) *Please continue (units (unknown) date) to take your unknown) regular medications as directed. (unknown) (no (unknown) (unknown) *Please follow up (units (unknown) date) with your primary unknown) care provider in 2-3 days, call for an (unknown) (no (unknown) (unknown) *Return to (units (unk nown) date) Emergency unknown) Department if you should have any new, worsening, or (unknown) (no (unknown) (unknown) *What to do: (units (u nknown) date) unknown) (unknown) (no (unknown) (unknown) *You have been (units (unknown) date) diagnosed with [ ] unknown) (unknown) (no (unknown) (unknown) [id number] (units (unkn own) date) unknown) (unknown) (no (unknown) (unknown) 03/27/22 03/27/22 (units (unknown) date) 03/27/22 unknown) Range/Units (unknown) (no (unknown) (unknown) 03/27/22 14:11 (units (unknown) date) unknown) (unknown) (no (unknown) (unknown) 03/27/22 14:17 (units (unknown) date) unknown) (unknown) (no (unknown) (unknown) 03/27/22 14:18 (units (unknown) date) unknown) (unknown) (no (unknown) (unknown) 03/27/22 14:44 (units (unknown) date) unknown) (unknown) (no (unknown) (unknown) 03/27/22 15:15 (units (unknown) date) unknown) (unknown) (no (unknown) (unknown) 03/27/22 (units (unkno wn) date) Range/Units unknown) (unknown) (no (unknown) (unknown) 03/27/22 (units (unkno wn) date) unknown) (unknown) (no (unknown) (unknown) [address] [place] [address], (units (unknown) date) [facility], unknown) [id number] (unknown) (no (unknown) (unknown) 13:24 03/27/22 (units (unknown) date) unknown) (unknown) (no (unknown) (unknown) 13:25 (units (unkno wn) date) unknown) (unknown) (no (unknown) (unknown) 13:27 03/27/22 (units (unknown) date) unknown) (unknown) (no (unknown) (unknown) 13:30 03/27/22 (units (unknown) date) unknown) (unknown) (no (unknown) (unknown) 14:00 (units (unkno wn) date) unknown) (unknown) (no (unknown) (unknown) 14:11 14:17 14:17 (units (unknown) date) unknown) (unknown) (no (unknown) (unknown) 14:18 (units (unkno wn) date) unknown) (unknown) (no (unknown) (unknown) 1546 (units (unkno wn) date) unknown) (unknown) (no (unknown) (unknown) 500 mg PO BID 7 (units (unknown) date) Days Qty: 14 0RF unknown) (unknown) (no (unknown) (unknown) ALT (<35) IU/L (units (unknown) date) unknown) (unknown) (no (unknown) (unknown) ALT 37 H (<35) (units (unknown) date) IU/L unknown) (unknown) (no (unknown) (unknown) 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 (units (unkno wn) date) unknown) (unknown) (no (unknown) (unknown) AST (14-36) IU/L (units (unknown) date) unknown) (unknown) (no (unknown) (unknown) AST 32 (14-36) (units (unknown) date) IU/L unknown) (unknown) (no (unknown) (unknown) (units (unknown) date) Unit#: [id number] unknown) : 1990Location : ED (unknown) (no (unknown) (unknown) Acetaminophen (units ( unknown) date) (Acetaminophen 325 unknown) Mg Tablet) 650 mg PO NOW ONE (unknown) (no (unknown) (unknown) Activity (units (unkno wn) date) Restrictions/Addit unknown) ional Instructions: (unknown) (no (unknown) (unknown) Acute suprapubic (units (unknown) date) pain, Bacterial unknown) vaginosis (unknown) (no (unknown) (unknown) Additional (units (unk nown) date) Information: unknown) (unknown) (no (unknown) (unknown) Age/Sex: 31 / F (units (unknown) date) unknown) (unknown) (no (unknown) (unknown) Albumin (3.5-5.0) (units (unknown) date) g/dL unknown) (unknown) (no (unknown) (unknown) Albumin 4.2 (units (un known) date) (3.5-5.0) g/dL unknown) (unknown) (no (unknown) (unknown) Albumin/Globulin (units (unknown) date) Ratio (1.0-2.8) unknown) (unknown) (no (unknown) (unknown) Albumin/Globulin (units (unknown) date) Ratio 1.4 unknown) (1.0-2.8) (unknown) (no (unknown) (unknown) Alkaline (units (unkno wn) date) Phosphatase unknown) (38-126) U/L (unknown) (no (unknown) (unknown) Alkaline (units (unkno wn) date) Phosphatase 90 unknown) (38-126) U/L (unknown) (no (unknown) (unknown) Allergies (units (unkn own) date) unknown) (unknown) (no (unknown) (unknown) Allergy/AdvReac (units (unknown) date) Type Severity unknown) Reaction Status Date / Time (unknown) (no (unknown) (unknown) Anxiety (units (unkno wn) date) unknown) (unknown) (no (unknown) (unknown) BUN (7-17) mg/dL (units (unknown) date) unknown) (unknown) (no (unknown) (unknown) BUN 10 (7-17) (units ( unknown) date) mg/dL unknown) (unknown) (no (unknown) (unknown) BUN/Creatinine (units (unknown) date) Ratio (6-22) unknown) (unknown) (no (unknown) (unknown) BUN/Creatinine (units (unknown) date) Ratio 17.2 (6-22) unknown) (unknown) (no (unknown) (unknown) Baso # (Auto) (units ( unknown) date) (0-100) /uL unknown) (unknown) (no (unknown) (unknown) Baso # (Auto) 0 (units (unknown) date) (0-100) /uL unknown) (unknown) (no (unknown) (unknown) Baso % (Auto) (units ( unknown) date) (0-2) % unknown) (unknown) (no (unknown) (unknown) Baso % (Auto) 0.2 (units (unknown) date) (0-2) % unknown) (unknown) (no (unknown) (unknown) Blood Pressure (units (unknown) date) 129/82 128/77 unknown) (unknown) (no (unknown) (unknown) Blood Pressure (units (unknown) date) 136/76 138/76 unknown) (unknown) (no (unknown) (unknown) Blood Pressure (units (unknown) date) 138/76 03/27/22 unknown) 13:24 (unknown) (no (unknown) (unknown) Blood Pressure (units (unknown) date) unknown) (unknown) (no (unknown) (unknown) CBC Auto Diff (units ( unknown) date) [Complete Blood unknown) Count AUTO DIFF] Stat (unknown) (no (unknown) (unknown) CMP (units (unkno wn) date) [Comprehensive unknown) Metabolic Panel] Stat (unknown) (no (unknown) (unknown) Calcium (units (unkno wn) date) (8.4-10.2) mg/dL unknown) (unknown) (no (unknown) (unknown) Calcium 9.2 (units (un known) date) (8.4-10.2) mg/dL unknown) (unknown) (no (unknown) (unknown) Carbon Dioxide (units (unknown) date) (22-32) mmol/L unknown) (unknown) (no (unknown) (unknown) Carbon Dioxide 27 (units (unknown) date) (22-32) mmol/L unknown) (unknown) (no (unknown) (unknown) Cardiovascular: (units (unknown) date) regular rate and unknown) rhythm, no peripheral edema, warm extremities (unknown) (no (unknown) (unknown) Chastity Little, (units (unknown) date) MD [Primary Care unknown) Provider] (unknown) (no (unknown) (unknown) Chief Complaint: (units (unknown) date) Abdominal Pain unknown) (unknown) (no (unknown) (unknown) Chloride (98-107) (units (unknown) date) mmol/L unknown) (unknown) (no (unknown) (unknown) Chloride 102 (units (u nknown) date) (98-107) mmol/L unknown) (unknown) (no (unknown) (unknown) Clinical (units (unkno wn) date) Impression: unknown) (unknown) (no (unknown) (unknown) Clue cells: None (units (unknown) date) seen unknown) (unknown) (no (unknown) (unknown) Course (units (unkno wn) date) unknown) (unknown) (no (unknown) (unknown) Creatinine (units (unk nown) date) (0.52-1.04) mg/dL unknown) (unknown) (no (unknown) (unknown) Creatinine 0.58 (units (unknown) date) (0.52-1.04) mg/dL unknown) (unknown) (no (unknown) (unknown) Mary Cm (units (unknown) date) 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 unknown) (unknown) (no (unknown) (unknown) : 1990 (units (unknown) date) Acct:[id number] unknown) (unknown) (no (unknown) (unknown) Date of Service: (units (unknown) date) 03/27/22 unknown) (unknown) (no (unknown) (unknown) Denies any upper (units (unknown) date) abdominal pain, unknown) has a history of cholecystectomy and ovarian (unknown) (no (unknown) (unknown) Denies any upper (units (unknown) date) abdominal pain, unknown) nausea or vomiting. States that she needs to (unknown) (no (unknown) (unknown) Departure (units (unkn own) date) unknown) (unknown) (no (unknown) (unknown) Depression (units (unk nown) date) unknown) (unknown) (no (unknown) (unknown) Discharge Plan (units (unknown) date) unknown) (unknown) (no (unknown) (unknown) Discontinued (units (u nknown) date) Medications unknown) (unknown) (no (unknown) (unknown) Documented By: (units (unknown) date) ZGG unknown) (unknown) (no (unknown) (unknown) ED Orders (units (unkn own) date) unknown) (unknown) (no (unknown) (unknown) ER Physician: (units ( unknown) date) Mary Cm unknown) 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 (unknown) (no (unknown) (unknown) Emergency Report (units (unknown) date) unknown) (unknown) (no (unknown) (unknown) Eos # (Auto) (units (u nknown) date) (0-450) /uL unknown) (unknown) (no (unknown) (unknown) Eos # (Auto) 100 (units (unknown) date) (0-450) /uL unknown) (unknown) (no (unknown) (unknown) Eos % (Auto) (units (u nknown) date) (2-4) % unknown) (unknown) (no (unknown) (unknown) Eos % (Auto) 1.6 (units (unknown) date) L (2-4) % unknown) (unknown) (no (unknown) (unknown) Estimated GFR > (units (unknown) date) 60 (>60) mL/min unknown) (unknown) (no (unknown) (unknown) Estimated GFR (units ( unknown) date) (>60) mL/min unknown) (unknown) (no (unknown) (unknown) Exam Narrative: (units (unknown) date) unknown) (unknown) (no (unknown) (unknown) Exam (units (unkno wn) date) unknown) (unknown) (no (unknown) (unknown) FAX TO: (units (unkno wn) date) unknown) (unknown) (no (unknown) (unknown) GI: abdomen soft, (units (unknown) date) nontender to unknown) palpation, nondistended, without masses, rebound (unknown) (no (unknown) (unknown) /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 (units (unknown) date) exam completed, unknown) patient has white vaginal discharge appears to (unknown) (no (unknown) (unknown) General (units (unkno wn) date) unknown) (unknown) (no (unknown) (unknown) General: (units (unkno wn) date) cooperative, unknown) comfortable, in no acute distress, well groomed (unknown) (no (unknown) (unknown) Globulin (units (unkno wn) date) (1.7-4.1) g/dL unknown) (unknown) (no (unknown) (unknown) Globulin 3.1 (units (u nknown) date) (1.7-4.1) g/dL unknown) (unknown) (no (unknown) (unknown) Glucose (70-100) (units (unknown) date) mg/dL unknown) (unknown) (no (unknown) (unknown) Glucose 130 H (units ( unknown) date) (70-100) mg/dL unknown) (unknown) (no (unknown) (unknown) HEENT: (units (unkno wn) date) symmetrical facial unknown) expressions, moist mucous membranes (unknown) (no (unknown) (unknown) HPI - Abdominal (units (unknown) date) Pain unknown) (unknown) (no (unknown) (unknown) HPI narrative: (units (unknown) date) unknown) (unknown) (no (unknown) (unknown) HPI (units (unkno wn) date) unknown) (unknown) (no (unknown) (unknown) [place] ] (units (unkno wn) date) unknown) (unknown) (no (unknown) (unknown) Hct (36-46) % (units ( unknown) date) unknown) (unknown) (no (unknown) (unknown) Hct 44.6 (36-46) (units (unknown) date) % unknown) (unknown) (no (unknown) (unknown) Hgb (12.0-16.0) (units (unknown) date) g/dL unknown) (unknown) (no (unknown) (unknown) Hgb 14.9 (units (unkno wn) date) (12.0-16.0) g/dL unknown) (unknown) (no (unknown) (unknown) History of (units (unk nown) date) Present Illness unknown) (unknown) (no (unknown) (unknown) History of (units (unk nown) date) removal of ovarian unknown) cyst (unknown) (no (unknown) (unknown) Hx of (units (unkno wn) date) cholecystectomy unknown) (unknown) (no (unknown) (unknown) Initial Vital (units ( unknown) date) Signs unknown) (unknown) (no (unknown) (unknown) Initial Vital (units ( unknown) date) Signs: unknown) (unknown) (no (unknown) (unknown) Instructions: (units ( unknown) date) Bacterial unknown) Vaginosis (unknown) (no (unknown) (unknown) [facility] (units (unknown) date) [address] unknown) [place] [id number] (unknown) (no (unknown) (unknown) [facility] (units (unknown) date) Laboratory CLIA ID unknown) [id number] (unknown) (no (unknown) (unknown) Jardiance, UA was (units (unknown) date) negative both POC unknown) on the urine dip and microscopy for WBCs, (unknown) (no (unknown) (unknown) Ketorolac (units (unkn own) date) Tromethamine unknown) (Ketorolac 10 Mg Tablet) 10 mg PO NOW ONE (unknown) (no (unknown) (unknown) Lab Data (units (unkno wn) date) unknown) (unknown) (no (unknown) (unknown) Lab Results (units (un known) date) unknown) (unknown) (no (unknown) (unknown) Labs: (units (unkno wn) date) unknown) (unknown) (no (unknown) (unknown) Last Admin: (units (un known) date) 03/27/22 14:36 unknown) Dose: 10 mg (unknown) (no (unknown) (unknown) Last Admin: (units (un known) date) 03/27/22 14:36 unknown) Dose: 650 mg (unknown) (no (unknown) (unknown) Last Admin: (units (un known) date) 03/27/22 14:37 unknown) Dose: 100 mg (unknown) (no (unknown) (unknown) Last Admin: (units (un known) date) 03/27/22 15:49 unknown) Dose: 5 applic (unknown) (no (unknown) (unknown) Last Admin: (units (un known) date) 03/27/22 15:49 unknown) Dose: 500 mg (unknown) (no (unknown) (unknown) Lipase (23-300) (units (unknown) date) U/L unknown) (unknown) (no (unknown) (unknown) Lipase 116 (units (unk nown) date) (23-300) U/L unknown) (unknown) (no (unknown) (unknown) Lipase Stat (units (un known) date) unknown) (unknown) (no (unknown) (unknown) Lymph # (Auto) (units (unknown) date) (0073-2279) /uL unknown) (unknown) (no (unknown) (unknown) Lymph # (Auto) (units (unknown) date) 3100 ([id number]) unknown) /uL (unknown) (no (unknown) (unknown) Lymph % (Auto) (units (unknown) date) (25-40) % unknown) (unknown) (no (unknown) (unknown) Lymph % (Auto) (units (unknown) date) 35.2 (25-40) % unknown) (unknown) (no (unknown) (unknown) MCH (26-34) PG (units (unknown) date) unknown) (unknown) (no (unknown) (unknown) MCH 29.1 (26-34) (units (unknown) date) PG unknown) (unknown) (no (unknown) (unknown) MCHC (30-36) % (units (unknown) date) unknown) (unknown) (no (unknown) (unknown) MCHC 33.4 (30-36) (units (unknown) date) % unknown) (unknown) (no (unknown) (unknown) MCV (80-100) fL (units (unknown) date) unknown) (unknown) (no (unknown) (unknown) MCV 87.2 (80-100) (units (unknown) date) fL unknown) (unknown) (no (unknown) (unknown) MDM - Abdominal (units (unknown) date) Pain unknown) (unknown) (no (unknown) (unknown) MDM Narrative (units ( unknown) date) unknown) (unknown) (no (unknown) (unknown) MSK: moves all (units (unknown) date) extremities, unknown) neurovascularly intact, no weakness, normal tone (unknown) (no (unknown) (unknown) Medical History (units (unknown) date) (Updated 03/27/22 unknown) @ 15:55 [facility] (unknown) (no (unknown) (unknown) Medical decision (units (unknown) date) making narrative: unknown) (unknown) (no (unknown) (unknown) Medication (units (unk nown) date) Instructions unknown) Recorded (unknown) (no (unknown) (unknown) Metronidazole (units ( unknown) date) (Metronidazole unknown) 0.75% 70 Gm Gel) 5 applic VAG NOW ONE (unknown) (no (unknown) (unknown) Metronidazole (units ( unknown) date) (Metronidazole 500 unknown) Mg Tablet) 500 mg PO NOW ONE (unknown) (no (unknown) (unknown) Mode of arrival: (units (unknown) date) Ambulatory unknown) (unknown) (no (unknown) (unknown) Gage # (Auto) (units ( unknown) date) (0-900) /uL unknown) (unknown) (no (unknown) (unknown) Gage # (Auto) 400 (units (unknown) date) (0-900) /uL unknown) (unknown) (no (unknown) (unknown) Gage % (Auto) (units ( unknown) date) (3-14) % unknown) (unknown) (no (unknown) (unknown) Gage % (Auto) 4.6 (units (unknown) date) (3-14) % unknown) (unknown) (no (unknown) (unknown) Name: (units (unkno wn) date) Carmen Díaz unknown) Age/Sex: 31/F Attend Dr: (unknown) (no (unknown) (unknown) Narrative (units (unkn own) date) unknown) (unknown) (no (unknown) (unknown) Narrative: (units (unk nown) date) unknown) (unknown) (no (unknown) (unknown) Neuro: normal (units ( unknown) date) speech and unknown) cognition, A+O x3, ambulatory, clear speech (unknown) (no (unknown) (unknown) Neut # (Auto) (units ( unknown) date) (1977-0855) /uL unknown) (unknown) (no (unknown) (unknown) Neut # (Auto) (units ( unknown) date) 5100 (7687-2343) unknown) /uL (unknown) (no (unknown) (unknown) Neut % (Auto) (units ( unknown) date) (50-75) % unknown) (unknown) (no (unknown) (unknown) Neut % (Auto) (units ( unknown) date) 58.4 (50-75) % unknown) (unknown) (no (unknown) (unknown) New (units (unkno wn) date) unknown) (unknown) (no (unknown) (unknown) ORDERED: Wet Prep (units (unknown) date) unknown) (unknown) (no (unknown) (unknown) Ordered: (units (unkno wn) date) unknown) (unknown) (no (unknown) (unknown) Orders (units (unkno wn) date) unknown) (unknown) (no (unknown) (unknown) Oxygen Delivery (units (unknown) date) Method Room Air unknown) (unknown) (no (unknown) (unknown) Oxygen Delivery (units (unknown) date) Method unknown) (unknown) (no (unknown) (unknown) PAGE 1 (units (unkno wn) date) unknown) (unknown) (no (unknown) (unknown) Patient (units (unkno wn) date) Disposition: Home unknown) (unknown) (no (unknown) (unknown) Patient History (units (unknown) date) unknown) (unknown) (no (unknown) (unknown) Patient reports (units (unknown) date) that she has a unknown) history of bacterial vaginosis as well. (unknown) (no (unknown) (unknown) Patient: (units (unkno wn) date) Carmen Díaz unknown) MR#: M (unknown) (no (unknown) (unknown) Phenazopyridine (units (unknown) date) HCl unknown) (Phenazopyridine 100 Mg Tablet) 100 mg PO NOW ONE (unknown) (no (unknown) (unknown) Plt Count (units (unkn own) date) (150-400) X103/uL unknown) (unknown) (no (unknown) (unknown) Plt Count 247 (units ( unknown) date) (150-400) X103/uL unknown) (unknown) (no (unknown) (unknown) Pneumonia (units (unkn own) date) unknown) (unknown) (no (unknown) (unknown) Potassium (units (unkn own) date) (3.4-5.1) mmol/L unknown) (unknown) (no (unknown) (unknown) Potassium 4.4 (units ( unknown) date) (3.4-5.1) mmol/L unknown) (unknown) (no (unknown) (unknown) Test (units (unknown) date) Serum,Qual Stat unknown) (unknown) (no (unknown) (unknown) Prescriptions: (units (unknown) date) unknown) (unknown) (no (unknown) (unknown) Previous Rx's (units ( unknown) date) unknown) (unknown) (no (unknown) (unknown) Procedure Result (units (unknown) date) Verified unknown) (unknown) (no (unknown) (unknown) Psych: mental (units ( unknown) date) status is grossly unknown) normal, congruent mood, normal affect, pleasant (unknown) (no (unknown) (unknown) Pulse Oximetry 96 (units (unknown) date) unknown) (unknown) (no (unknown) (unknown) Pulse Oximetry 99 (units (unknown) date) 97 unknown) (unknown) (no (unknown) (unknown) Pulse Rate 106 H (units (unknown) date) 107 H unknown) (unknown) (no (unknown) (unknown) Pulse Rate 106 H (units (unknown) date) unknown) (unknown) (no (unknown) (unknown) Pulse Rate 108 H (units (unknown) date) unknown) (unknown) (no (unknown) (unknown) RBC (4.0-5.2) (units ( unknown) date) X106/uL unknown) (unknown) (no (unknown) (unknown) RBC 5.11 (units (unkno wn) date) (4.0-5.2) X106/uL unknown) (unknown) (no (unknown) (unknown) RDW (11.6-14.8) % (units (unknown) date) unknown) (unknown) (no (unknown) (unknown) RDW 12.9 (units (unkno wn) date) (11.6-14.8) % unknown) (unknown) (no (unknown) (unknown) RUN DATE: (units (unkn own) date) 03/27/22 Specimen unknown) Inquiry (unknown) (no (unknown) (unknown) RUN TIME: 1603 (units (unknown) date) unknown) (unknown) (no (unknown) (unknown) Referrals: (units (unk nown) date) unknown) (unknown) (no (unknown) (unknown) Re03/27/22 (units ( unknown) date) Disch: Status: REG unknown) ER (unknown) (no (unknown) (unknown) Related Data (units (u nknown) date) unknown) (unknown) (no (unknown) (unknown) Respiratory Rate (units (unknown) date) 16 unknown) (unknown) (no (unknown) (unknown) Respiratory Rate (units (unknown) date) unknown) (unknown) (no (unknown) (unknown) Respiratory: (units (u nknown) date) normal effort, unknown) able to speak in complete sentences, without (unknown) (no (unknown) (unknown) Result diagrams: (units (unknown) date) unknown) (unknown) (no (unknown) (unknown) Review of Systems (units (unknown) date) unknown) (unknown) (no (unknown) (unknown) Review of systems (units (unknown) date) is negative for unknown) acute abnormalities unless otherwise noted in (unknown) (no (unknown) (unknown) Reviewed vitals (units (unknown) date) signs and nursing unknown) notes. (unknown) (no (unknown) (unknown) SOURCE: Vaginal (units (unknown) date) ENTR: unknown) 03/27/22-[address]: Chastity Little MD (unknown) (no (unknown) (unknown) SPDESC: RECD: (units ( unknown) date) 03/27/22-0 SUBM unknown) DR: Mary Cm (unknown) (no (unknown) (unknown) SPEC #: (units (unkno wn) date) [id number] NANCY: unknown) 03/27/22 STATUS: COMP REQ (unknown) (no (unknown) (unknown) Serum , (units (unknown) date) Qual (Negative) unknown) (unknown) (no (unknown) (unknown) Serum , (units (unknown) date) Qual Negative unknown) (Negative) (unknown) (no (unknown) (unknown) Signed By: (units (unk nown) date) unknown) (unknown) (no (unknown) (unknown) Site (units (unkno wn) date) unknown) (unknown) (no (unknown) (unknown) Skin: brisk (units (un known) date) capillary refill, unknown) without pallor or erythema (unknown) (no (unknown) (unknown) Smoking Status: (units (unknown) date) Never smoker unknown) (unknown) (no (unknown) (unknown) Social History (units (unknown) date) (Reviewed 03/27/22 unknown) @ 14:08 by Mary Cm [facility]) (unknown) (no (unknown) (unknown) Sodium (137-145) (units (unknown) date) mmol/L unknown) (unknown) (no (unknown) (unknown) Sodium 137 (units (unk nown) date) (137-145) mmol/L unknown) (unknown) (no (unknown) (unknown) Source: patient (units (unknown) date) unknown) (unknown) (no (unknown) (unknown) Stated Complaint: (units (unknown) date) abd pain since unknown) (unknown) (no (unknown) (unknown) Stop: 03/27/22 (units (unknown) date) 14:11 unknown) (unknown) (no (unknown) (unknown) Stop: 03/27/22 (units (unknown) date) 15:39 unknown) (unknown) (no (unknown) (unknown) Stop: 03/27/22 (units (unknown) date) 15:40 unknown) (unknown) (no (unknown) (unknown) Substance Use (units ( unknown) date) Type: does not use unknown) (unknown) (no (unknown) (unknown) Surgical History (units (unknown) date) (Reviewed 03/27/22 unknown) @ 14:08 by 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 This (unknown) (no (unknown) (unknown) This is a (units (unkn own) date) 31-year-old female unknown) presents to emergency department complaining of (unknown) (no (unknown) (unknown) This is a (units (unkn own) date) 31-year-old female unknown) with history of type 2 diabetes, on Jardiance, who (unknown) (no (unknown) (unknown) Time Seen by (units (u nknown) date) Provider: 03/27/22 unknown) 13:36 (unknown) (no (unknown) (unknown) Total Bilirubin (units (unknown) date) (0.2-1.3) mg/dL unknown) (unknown) (no (unknown) (unknown) Total Bilirubin (units (unknown) date) 0.3 (0.2-1.3) unknown) mg/dL (unknown) (no (unknown) (unknown) Total Protein (units ( unknown) date) (6.3-8.2) g/dL unknown) (unknown) (no (unknown) (unknown) Total Protein 7.3 (units (unknown) date) (6.3-8.2) g/dL unknown) (unknown) (no (unknown) (unknown) Transvaginal (units (u nknown) date) ultrasound unknown) (unknown) (no (unknown) (unknown) Trichomonas: None (units (unknown) date) seen unknown) (unknown) (no (unknown) (unknown) US pelvic (units (unkn own) date) complete Stat unknown) (unknown) (no (unknown) (unknown) Ur Culture (units (unk nown) date) Indicated? Cult unknown) not indicated (unknown) (no (unknown) (unknown) Ur Culture (units (unk nown) date) Indicated? unknown) (unknown) (no (unknown) (unknown) Ur Leukocyte (units (u nknown) date) Esterase unknown) (NEGATIVE) (unknown) (no (unknown) (unknown) Ur Leukocyte (units (u nknown) date) Esterase Negative unknown) (NEGATIVE) (unknown) (no (unknown) (unknown) Ur Specific (units (un known) date) [place] unknown) (1.000-1.035) (unknown) (no (unknown) (unknown) Ur Specific (units (un known) date) [place] 1.015 unknown) (1.000-1.035) (unknown) (no (unknown) (unknown) Ur Squamous Epith (units (unknown) date) Cells (0-5/HPF) unknown) (unknown) (no (unknown) (unknown) Ur Squamous Epith (units (unknown) date) Cells 0-1 /hpf unknown) (0-5/HPF) (unknown) (no (unknown) (unknown) Urinalysis and (units (unknown) date) Microscopic Stat unknown) (unknown) (no (unknown) (unknown) Urine Appearance (units (unknown) date) Clear unknown) (unknown) (no (unknown) (unknown) Urine Appearance (units (unknown) date) unknown) (unknown) (no (unknown) (unknown) Urine Bacteria (units (unknown) date) (None) unknown) (unknown) (no (unknown) (unknown) Urine Bacteria (units (unknown) date) None seen (None) unknown) (unknown) (no (unknown) (unknown) Urine Bilirubin (units (unknown) date) (NEGATIVE) unknown) (unknown) (no (unknown) (unknown) Urine Bilirubin (units (unknown) date) Negative unknown) (NEGATIVE) (unknown) (no (unknown) (unknown) Urine Color (units (un known) date) Yellow unknown) (unknown) (no (unknown) (unknown) Urine Color (units (un known) date) unknown) (unknown) (no (unknown) (unknown) Urine Glucose (units ( unknown) date) (UA) (Negative) unknown) g/dL (unknown) (no (unknown) (unknown) Urine Glucose (units ( unknown) date) (UA) 3+ H unknown) (Negative) g/dL (unknown) (no (unknown) (unknown) Urine Ketones (units ( unknown) date) (NEGATIVE) unknown) (unknown) (no (unknown) (unknown) Urine Ketones (units ( unknown) date) Negative unknown) (NEGATIVE) (unknown) (no (unknown) (unknown) Urine Nitrate (units ( unknown) date) (Negative) unknown) (unknown) (no (unknown) (unknown) Urine Nitrate (units ( unknown) date) Negative unknown) (Negative) (unknown) (no (unknown) (unknown) Urine Occult (units (u nknown) date) Blood (Negative) unknown) (unknown) (no (unknown) (unknown) Urine Occult (units (u nknown) date) Blood Negative unknown) (Negative) (unknown) (no (unknown) (unknown) Urine Protein (units ( unknown) date) (Negative) unknown) (unknown) (no (unknown) (unknown) Urine Protein (units ( unknown) date) Negative unknown) (Negative) (unknown) (no (unknown) (unknown) Urine RBC (units (unkn own) date) (0-5/HPF) unknown) (unknown) (no (unknown) (unknown) Urine RBC None (units (unknown) date) seen (0-5/HPF) unknown) (unknown) (no (unknown) (unknown) Urine (units (unkno wn) date) Urobilinogen (0.2) unknown) E.U./dL (unknown) (no (unknown) (unknown) Urine (units (unkno wn) date) Urobilinogen 0.2 unknown) (0.2) E.U./dL (unknown) (no (unknown) (unknown) Urine WBC (units (unkn own) date) (0-5/HPF) unknown) (unknown) (no (unknown) (unknown) Urine WBC None (units (unknown) date) seen (0-5/HPF) unknown) (unknown) (no (unknown) (unknown) Urine pH (units (unkno wn) date) (4.5-8.0) unknown) (unknown) (no (unknown) (unknown) Urine pH 5.0 (units (u nknown) date) (4.5-8.0) unknown) (unknown) (no (unknown) (unknown) Vital Signs - 8 (units (unknown) date) hr unknown) (unknown) (no (unknown) (unknown) Vital Signs (units (un known) date) unknown) (unknown) (no (unknown) (unknown) Vital signs: (units (u nknown) date) unknown) (unknown) (no (unknown) (unknown) WBC (4.5-11.0) (units (unknown) date) X103/uL unknown) (unknown) (no (unknown) (unknown) WBC 8.7 (units (unkno wn) date) (4.5-11.0) X103/uL unknown) (unknown) (no (unknown) (unknown) Wet Prep Tric BV (units (unknown) date) Bonita Final unknown) 03/27/22 (unknown) (no (unknown) (unknown) Wet Prep Tric BV (units (unknown) date) [place] Stat unknown) (unknown) (no (unknown) (unknown) Wet prep is (units (un known) date) positive for unknown) (unknown) (no (unknown) (unknown) White blood cells (units (unknown) date) Moderate poly WBCs unknown) (unknown) (no (unknown) (unknown) Yeast: None seen (units (unknown) date) unknown) (unknown) (no (unknown) (unknown) Your (units (unknown) date) test was negative, unknown) take these pills twice a day for the next 7 (unknown) (no (unknown) (unknown) [ ] New (units (unkno wn) date) medication written unknown) as a paper prescription (unknown) (no (unknown) (unknown) [ ] No new (units (unk nown) date) medications given unknown) (unknown) (no (unknown) (unknown) [ x] New (units (unkno wn) date) medication unknown) prescriptions sent to your pharmacy: [[facility] (unknown) (no (unknown) (unknown) [Embedded Image (units (unknown) date) Not Available] unknown) (unknown) (no (unknown) (unknown) abdominal pain. (units (unknown) date) Has a history of unknown) bacterial vaginosis, cholecystectomy, (unknown) (no (unknown) (unknown) alcohol intake (units (unknown) date) frequency: 0-2 unknown) drinks per day (unknown) (no (unknown) (unknown) and cooperative (units (unknown) date) unknown) (unknown) (no (unknown) (unknown) appointment. Let (units (unknown) date) them know you were unknown) seen in the Emergency Department and that we (unknown) (no (unknown) (unknown) asked that you be (units (unknown) date) seen for unknown) follow-up. We will electronically transmit a record (unknown) (no (unknown) (unknown) bacteria, (units (unkn own) date) nitrites, and unknown) RBCs. Patient denies any recent fever or other (unknown) (no (unknown) (unknown) be more than a (units (unknown) date) normal amount, unknown) without adnexal tenderness (unknown) (no (unknown) (unknown) bladder (units (unkno wn) date) frequently, we unknown) will call you if any of the other tests are positive and (unknown) (no (unknown) (unknown) case there is (units ( unknown) date) bacteria which did unknown) not show up on the slide. (unknown) (no (unknown) (unknown) concerning (units (unk nown) date) symptoms, such as unknown) [fever greater than 101F, chills, worsening pain, (unknown) (no (unknown) (unknown) cyst with ovarian (units (unknown) date) cystectomy x1. unknown) (unknown) (no (unknown) (unknown) days, you can (units ( unknown) date) repeat the vaginal unknown) applicator as well. Hoping to get on top of (unknown) (no (unknown) (unknown) establish care (units (unknown) date) with one of the unknown) [facility] primary care providers. (unknown) (no (unknown) (unknown) for the last 4 (units (unknown) date) days. 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 Denies urinary frequency (unknown) (no (unknown) (unknown) if you need an (units (unknown) date) antibiotic. We unknown) have sent your urine for culture as well just in (unknown) (no (unknown) (unknown) is most likely (units (unknown) date) related to unknown) overgrowth of normal bacteria. (unknown) (no (unknown) (unknown) leave by 16:00 (units (unknown) date) today. unknown) (unknown) (no (unknown) (unknown) metronidazole 500 (units (unknown) date) mg tablet 500 mg unknown) PO BID 7 days #14 tabs 03/27/22 (unknown) (no (unknown) (unknown) metronidazole 500 (units (unknown) date) mg tablet unknown) (unknown) (no (unknown) (unknown) morphine Allergy (units (unknown) date) Severe ITCHING unknown) Verified 03/27/22 13:30 (unknown) (no (unknown) (unknown) of today's note (units (unknown) date) if your PCP is in unknown) our system (unknown) (no (unknown) (unknown) or urgency, (units (un known) date) denies flank pain, unknown) shortness of breath, chest pain, back pain. (unknown) (no (unknown) (unknown) persistent (units (unk nown) date) vomiting or other unknown) bothersome symptoms]. (unknown) (no (unknown) (unknown) presents to (units (unk nown) date) emergency unknown) department complaining of suprapubic fullness and pressure (unknown) (no (unknown) (unknown) section and (units (un known) date) ovarian cyst unknown) drainage. (unknown) (no (unknown) (unknown) suprapubic (units (unk nown) date) tenderness and unknown) pressure for the last 4 days. She is diabetic, on (unknown) (no (unknown) (unknown) tenderness or (units ( unknown) date) exquisite unknown) tenderness with exam. (unknown) (no (unknown) (unknown) this for you with (units (unknown) date) the oral and unknown) vaginal regimen. Please stay hydrated, empty her (unknown) (no (unknown) (unknown) wheezing, (units (unkn own) date) stridor, or unknown) abnormal breath sounds. No retractions or tachypnea. Result panel 16 (unknown) (no (unknown) (unknown) (no value) (units (unk nown) date) unknown) (unknown) (no (unknown) (unknown) #: [id number] (units (un known) date) unknown) (unknown) (no (unknown) (unknown) <Electronically (units (unknown) date) signed by Mary solis) Yumiko [facility] Crew> (unknown) (no (unknown) (unknown) *If you do not (units (unknown) date) have a primary unknown) care provider please contact [phone] to (unknown) (no (unknown) (unknown) *Please continue (units (unknown) date) to take your unknown) regular medications as directed. (unknown) (no (unknown) (unknown) *Please follow up (units (unknown) date) with your primary unknown) care provider in 2-3 days, call for an (unknown) (no (unknown) (unknown) *Return to (units (unk nown) date) Emergency unknown) Department if you should have any new, worsening, or (unknown) (no (unknown) (unknown) *What to do: (units (u nknown) date) unknown) (unknown) (no (unknown) (unknown) [id number] (units (unkn own) date) unknown) (unknown) (no (unknown) (unknown) 10 mg PO TID PRN (units (unknown) date) (Reason: pain) 5 unknown) Days Qty: 14 0RF (unknown) (no (unknown) (unknown) 03/27/22 03/27/22 (units (unknown) date) 03/27/22 unknown) Range/Units (unknown) (no (unknown) (unknown) 03/27/22 14:11 (units (unknown) date) unknown) (unknown) (no (unknown) (unknown) 03/27/22 14:17 (units (unknown) date) unknown) (unknown) (no (unknown) (unknown) 03/27/22 14:18 (units (unknown) date) unknown) (unknown) (no (unknown) (unknown) 03/27/22 14:44 (units (unknown) date) unknown) (unknown) (no (unknown) (unknown) 03/27/22 15:15 (units (unknown) date) unknown) (unknown) (no (unknown) (unknown) 03/27/22 1848 (units ( unknown) date) unknown) (unknown) (no (unknown) (unknown) 03/27/22 (units (unkno wn) date) Range/Units unknown) (unknown) (no (unknown) (unknown) 03/27/22 (units (unkno wn) date) unknown) (unknown) (no (unknown) (unknown) [address] [place] [address], (units (unknown) date) [facility], unknown) [id number] (unknown) (no (unknown) (unknown) 13:24 03/27/22 (units (unknown) date) unknown) (unknown) (no (unknown) (unknown) 13:25 (units (unkno wn) date) unknown) (unknown) (no (unknown) (unknown) 13:27 03/27/22 (units (unknown) date) unknown) (unknown) (no (unknown) (unknown) 13:30 03/27/22 (units (unknown) date) unknown) (unknown) (no (unknown) (unknown) 14:00 (units (unkno wn) date) unknown) (unknown) (no (unknown) (unknown) 14:11 14:17 14:17 (units (unknown) date) unknown) (unknown) (no (unknown) (unknown) 14:18 (units (unkno wn) date) unknown) (unknown) (no (unknown) (unknown) 1546 (units (unkno wn) date) unknown) (unknown) (no (unknown) (unknown) 500 mg PO BID 7 (units (unknown) date) Days Qty: 14 0RF unknown) (unknown) (no (unknown) (unknown) 9 cc. The ovaries (units (unknown) date) have a normal unknown) sonographic appearance. Less than 12 follicles (unknown) (no (unknown) (unknown) ? (units (unkno wn) date) unknown) (unknown) (no (unknown) (unknown) ?? 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 wn) date) unknown) (unknown) (no (unknown) (unknown) AST (14-36) IU/L (units (unknown) date) unknown) (unknown) (no (unknown) (unknown) AST 32 (14-36) (units (unknown) date) IU/L unknown) (unknown) (no (unknown) (unknown) (units (unknown) date) Unit#: [id number] unknown) : 1990Location : ED (unknown) (no (unknown) (unknown) Acetaminophen (units ( unknown) date) (Acetaminophen 325 unknown) Mg Tablet) 650 mg PO NOW ONE (unknown) (no (unknown) (unknown) Activity (units (unkno wn) date) Restrictions/Addit unknown) ional Instructions: (unknown) (no (unknown) (unknown) Acute suprapubic (units (unknown) date) pain, Bacterial unknown) vaginosis (unknown) (no (unknown) (unknown) Additional (units (unk nown) date) Information: unknown) (unknown) (no (unknown) (unknown) Additional (units (unkn own) date) endovaginal unknown) scanning was necessary due to incomplete visualization of (unknown) (no (unknown) (unknown) Age/Sex: 31 / F (units (unknown) date) unknown) (unknown) (no (unknown) (unknown) Albumin (3.5-5.0) (units (unknown) date) g/dL unknown) (unknown) (no (unknown) (unknown) Albumin 4.2 (units (un known) date) (3.5-5.0) g/dL unknown) (unknown) (no (unknown) (unknown) Albumin/Globulin (units (unknown) date) Ratio (1.0-2.8) unknown) (unknown) (no (unknown) (unknown) Albumin/Globulin (units (unknown) date) Ratio 1.4 unknown) (1.0-2.8) (unknown) (no (unknown) (unknown) Alkaline (units (unkno wn) date) Phosphatase unknown) (38-126) U/L (unknown) (no (unknown) (unknown) Alkaline (units (unkno wn) date) Phosphatase 90 unknown) (38-126) U/L (unknown) (no (unknown) (unknown) Allergies (units (unkn own) date) unknown) (unknown) (no (unknown) (unknown) Allergy/AdvReac (units (unknown) date) Type Severity unknown) Reaction Status Date / Time (unknown) (no (unknown) (unknown) Anxiety (units (unkno wn) date) unknown) (unknown) (no (unknown) (unknown) Approved by: (units (u nknown) date) Geraldine Goodman M.D. unknown) on 03/27/2022 at 16:09 ? (unknown) (no (unknown) (unknown) BUN (7-17) mg/dL (units (unknown) date) unknown) (unknown) (no (unknown) (unknown) BUN 10 (7-17) (units ( unknown) date) mg/dL unknown) (unknown) (no (unknown) (unknown) BUN/Creatinine (units (unknown) date) Ratio (6-22) unknown) (unknown) (no (unknown) (unknown) BUN/Creatinine (units (unknown) date) Ratio 17.2 (6-22) unknown) (unknown) (no (unknown) (unknown) Baso # (Auto) (units ( unknown) date) (0-100) /uL unknown) (unknown) (no (unknown) (unknown) Baso # (Auto) 0 (units (unknown) date) (0-100) /uL unknown) (unknown) (no (unknown) (unknown) Baso % (Auto) (units ( unknown) date) (0-2) % unknown) (unknown) (no (unknown) (unknown) Baso % (Auto) 0.2 (units (unknown) date) (0-2) % unknown) (unknown) (no (unknown) (unknown) Blood Pressure (units (unknown) date) 129/82 128/77 unknown) (unknown) (no (unknown) (unknown) Blood Pressure (units (unknown) date) 136/76 138/76 unknown) (unknown) (no (unknown) (unknown) Blood Pressure (units (unknown) date) 138/76 03/27/22 unknown) 13:24 (unknown) (no (unknown) (unknown) Blood Pressure (units (unknown) date) unknown) (unknown) (no (unknown) (unknown) CBC Auto Diff (units ( unknown) date) [Complete Blood unknown) Count AUTO DIFF] Stat (unknown) (no (unknown) (unknown) CMP (units (unkno wn) date) [Comprehensive unknown) Metabolic Panel] Stat (unknown) (no (unknown) (unknown) COMPARISON:? (units (u nknown) date) None. unknown) (unknown) (no (unknown) (unknown) Calcium (units (unkno wn) date) (8.4-10.2) mg/dL unknown) (unknown) (no (unknown) (unknown) Calcium 9.2 (units (un known) date) (8.4-10.2) mg/dL unknown) (unknown) (no (unknown) (unknown) Carbon Dioxide (units (unknown) date) (22-32) mmol/L unknown) (unknown) (no (unknown) (unknown) Carbon Dioxide 27 (units (unknown) date) (22-32) mmol/L unknown) (unknown) (no (unknown) (unknown) Cardiovascular: (units (unknown) date) regular rate and unknown) rhythm, no peripheral edema, warm extremities (unknown) (no (unknown) (unknown) Chastity Little, (units (unknown) date) [Primary Care unknown) Provider] (unknown) (no (unknown) (unknown) Chief Complaint: (units (unknown) date) Abdominal Pain unknown) (unknown) (no (unknown) (unknown) Chloride (98-107) (units (unknown) date) mmol/L unknown) (unknown) (no (unknown) (unknown) Chloride 102 (units (u nknown) date) (98-107) mmol/L unknown) (unknown) (no (unknown) (unknown) Clinical (units (unkno wn) date) Impression: unknown) (unknown) (no (unknown) (unknown) Clue cells: None (units (unknown) date) seen unknown) (unknown) (no (unknown) (unknown) Course (units (unkno wn) date) unknown) (unknown) (no (unknown) (unknown) Creatinine (units (unk nown) date) (0.52-1.04) mg/dL unknown) (unknown) (no (unknown) (unknown) Creatinine 0.58 (units (unknown) date) (0.52-1.04) mg/dL unknown) (unknown) (no (unknown) (unknown) Mary Cm (units (unknown) date) FLORI unknown) (unknown) (no (unknown) (unknown) : 1990 (units (unknown) date) Acct:[id number] unknown) (unknown) (no (unknown) (unknown) Date of Service: (units (unknown) date) 03/27/22 unknown) (unknown) (no (unknown) (unknown) Denies any upper (units (unknown) date) abdominal pain, unknown) has a history of cholecystectomy and ovarian (unknown) (no (unknown) (unknown) Denies any upper (units (unknown) date) abdominal pain, unknown) nausea or vomiting. States that she needs to (unknown) (no (unknown) (unknown) Departure (units (unkn own) date) unknown) (unknown) (no (unknown) (unknown) Depression (units (unk nown) date) unknown) (unknown) (no (unknown) (unknown) Dictated by: (units (u nknown) date) Geraldine Goodman M.D. unknown) on 03/27/2022 at 16:08 ? ? (unknown) (no (unknown) (unknown) Discharge Plan (units (unknown) date) unknown) (unknown) (no (unknown) (unknown) Discontinued (units (u nknown) date) Medications unknown) (unknown) (no (unknown) (unknown) Documented By: (units (unknown) date) [facility] unknown) (unknown) (no (unknown) (unknown) ED Orders (units (unkn own) date) unknown) (unknown) (no (unknown) (unknown) ER Physician: (units ( unknown) date) Mary Cm unknown) 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 (unknown) (no (unknown) (unknown) Emergency Report (units (unknown) date) unknown) (unknown) (no (unknown) (unknown) Eos # (Auto) (units (u nknown) date) (0-450) /uL unknown) (unknown) (no (unknown) (unknown) Eos # (Auto) 100 (units (unknown) date) (0-450) /uL unknown) (unknown) (no (unknown) (unknown) Eos % (Auto) (units (u nknown) date) (2-4) % unknown) (unknown) (no (unknown) (unknown) Eos % (Auto) 1.6 (units (unknown) date) L (2-4) % unknown) (unknown) (no (unknown) (unknown) Estimated GFR > (units (unknown) date) 60 (>60) mL/min unknown) (unknown) (no (unknown) (unknown) Estimated GFR (units ( unknown) date) (>60) mL/min unknown) (unknown) (no (unknown) (unknown) Exam Narrative: (units (unknown) date) unknown) (unknown) (no (unknown) (unknown) Exam (units (unkno wn) date) unknown) (unknown) (no (unknown) (unknown) FAX TO: (units (unkno wn) date) unknown) (unknown) (no (unknown) (unknown) FINDINGS:? 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 (units (unknown) date) exam completed, unknown) patient has white vaginal discharge appears to (unknown) (no (unknown) (unknown) General (units (unkno wn) date) unknown) (unknown) (no (unknown) (unknown) General: (units (unkno wn) date) cooperative, unknown) comfortable, in no acute distress, well groomed (unknown) (no (unknown) (unknown) Globulin (units (unkno wn) date) (1.7-4.1) g/dL unknown) (unknown) (no (unknown) (unknown) Globulin 3.1 (units (u nknown) date) (1.7-4.1) g/dL unknown) (unknown) (no (unknown) (unknown) Glucose (70-100) (units (unknown) date) mg/dL unknown) (unknown) (no (unknown) (unknown) Glucose 130 H (units ( unknown) date) (70-100) mg/dL unknown) (unknown) (no (unknown) (unknown) HEENT: (units (unkno wn) date) symmetrical facial unknown) expressions, moist mucous membranes (unknown) (no (unknown) (unknown) HPI - Abdominal (units (unknown) date) Pain unknown) (unknown) (no (unknown) (unknown) HPI narrative: (units (unknown) date) unknown) (unknown) (no (unknown) (unknown) HPI (units (unkno wn) date) unknown) (unknown) (no (unknown) (unknown) [place] ] (units (unkno wn) date) unknown) (unknown) (no (unknown) (unknown) Hct (36-46) % (units ( unknown) date) unknown) (unknown) (no (unknown) (unknown) Hct 44.6 (36-46) (units (unknown) date) % unknown) (unknown) (no (unknown) (unknown) Hgb (12.0-16.0) (units (unknown) date) g/dL unknown) (unknown) (no (unknown) (unknown) Hgb 14.9 (units (unkno wn) date) (12.0-16.0) g/dL unknown) (unknown) (no (unknown) (unknown) History of (units (unk nown) date) Present Illness unknown) (unknown) (no (unknown) (unknown) History of (units (unk nown) date) removal of ovarian unknown) cyst (unknown) (no (unknown) (unknown) Hx of (units (unkno wn) date) cholecystectomy unknown) (unknown) (no (unknown) (unknown) IMPRESSION:? (units (u nknown) date) Unremarkable exam. unknown) (unknown) (no (unknown) (unknown) INDICATIONS:? (units ( unknown) date) suprapubic unknown) tenderness, not bladder infection, hx ovarian cys (unknown) (no (unknown) (unknown) Imaging Data (units (u nknown) date) unknown) (unknown) (no (unknown) (unknown) Initial Vital (units ( unknown) date) Signs unknown) (unknown) (no (unknown) (unknown) Initial Vital (units ( unknown) date) Signs: unknown) (unknown) (no (unknown) (unknown) Instructions: (units ( unknown) date) Bacterial unknown) Vaginosis (unknown) (no (unknown) (unknown) [facility] (units (unknown) date) [address] unknown) [place] [address] (unknown) (no (unknown) (unknown) [facility] (units (unknown) date) Laboratory CLIA ID unknown) [id number] (unknown) (no (unknown) (unknown) Jardiance, UA was (units (unknown) date) negative both POC unknown) on the urine dip and microscopy for WBCs, (unknown) (no (unknown) (unknown) Ketorolac (units (unkn own) date) Tromethamine unknown) (Ketorolac 10 Mg Tablet) 10 mg PO NOW ONE (unknown) (no (unknown) (unknown) Lab Data (units (unkno wn) date) unknown) (unknown) (no (unknown) (unknown) Lab Results (units (un known) date) unknown) (unknown) (no (unknown) (unknown) Labs: (units (unkno wn) date) unknown) (unknown) (no (unknown) (unknown) Last Admin: (units (un known) date) 03/27/22 14:36 unknown) Dose: 10 mg (unknown) (no (unknown) (unknown) Last Admin: (units (un known) date) 03/27/22 14:36 unknown) Dose: 650 mg (unknown) (no (unknown) (unknown) Last Admin: (units (un known) date) 03/27/22 14:37 unknown) Dose: 100 mg (unknown) (no (unknown) (unknown) Last Admin: (units (un known) date) 03/27/22 15:49 unknown) Dose: 5 applic (unknown) (no (unknown) (unknown) Last Admin: (units (un known) date) 03/27/22 15:49 unknown) Dose: 500 mg (unknown) (no (unknown) (unknown) Lipase (23-300) (units (unknown) date) U/L unknown) (unknown) (no (unknown) (unknown) Lipase 116 (units (unk nown) date) (23-300) U/L unknown) (unknown) (no (unknown) (unknown) Lipase Stat (units (un known) date) unknown) (unknown) (no (unknown) (unknown) Lymph # (Auto) (units (unknown) date) (8870-0351) /uL unknown) (unknown) (no (unknown) (unknown) Lymph # (Auto) (units (unknown) date) 3100 (8970-2569) unknown) /uL (unknown) (no (unknown) (unknown) Lymph % (Auto) (units (unknown) date) (25-40) % unknown) (unknown) (no (unknown) (unknown) Lymph % (Auto) (units (unknown) date) 35.2 (25-40) % unknown) (unknown) (no (unknown) (unknown) MCH (26-34) PG (units (unknown) date) unknown) (unknown) (no (unknown) (unknown) MCH 29.1 (26-34) (units (unknown) date) PG unknown) (unknown) (no (unknown) (unknown) MCHC (30-36) % (units (unknown) date) unknown) (unknown) (no (unknown) (unknown) MCHC 33.4 (30-36) (units (unknown) date) % unknown) (unknown) (no (unknown) (unknown) MCV (80-100) fL (units (unknown) date) unknown) (unknown) (no (unknown) (unknown) MCV 87.2 (80-100) (units (unknown) date) fL unknown) (unknown) (no (unknown) (unknown) MDM - Abdominal (units (unknown) date) Pain unknown) (unknown) (no (unknown) (unknown) MDM Narrative (units ( unknown) date) unknown) (unknown) (no (unknown) (unknown) MSK: moves all (units (unknown) date) extremities, unknown) neurovascularly intact, no weakness, normal tone (unknown) (no (unknown) (unknown) Medical History (units (unknown) date) (Updated 03/27/22 unknown) @ 15:55 by Mary Cm 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) (unknown) (no (unknown) (unknown) Medical decision (units (unknown) date) making narrative: unknown) (unknown) (no (unknown) (unknown) Medication (units (unk nown) date) Instructions unknown) Recorded (unknown) (no (unknown) (unknown) Metronidazole (units ( unknown) date) (Metronidazole unknown) 0.75% 70 Gm Gel) 5 applic VAG NOW ONE (unknown) (no (unknown) (unknown) Metronidazole (units ( unknown) date) (Metronidazole 500 unknown) Mg Tablet) 500 mg PO NOW ONE (unknown) (no (unknown) (unknown) Mode of arrival: (units (unknown) date) Ambulatory unknown) (unknown) (no (unknown) (unknown) Gage # (Auto) (units ( unknown) date) (0-900) /uL unknown) (unknown) (no (unknown) (unknown) Gage # (Auto) 400 (units (unknown) date) (0-900) /uL unknown) (unknown) (no (unknown) (unknown) Gage % (Auto) (units ( unknown) date) (3-14) % unknown) (unknown) (no (unknown) (unknown) Gage % (Auto) 4.6 (units (unknown) date) (3-14) % unknown) (unknown) (no (unknown) (unknown) Name: (units (unkno wn) date) Carmen Díaz unknown) Age/Sex: 31/F Attend Dr: (unknown) (no (unknown) (unknown) Narrative (units (unkn own) date) unknown) (unknown) (no (unknown) (unknown) Narrative: (units (unk nown) date) unknown) (unknown) (no (unknown) (unknown) Neuro: normal (units ( unknown) date) speech and unknown) cognition, A+O x3, ambulatory, clear speech (unknown) (no (unknown) (unknown) Neut # (Auto) (units ( unknown) date) (6712-4283) /uL unknown) (unknown) (no (unknown) (unknown) Neut # (Auto) (units ( unknown) date) 5100 (5697-5558) unknown) /uL (unknown) (no (unknown) (unknown) Neut % (Auto) (units ( unknown) date) (50-75) % unknown) (unknown) (no (unknown) (unknown) Neut % (Auto) (units ( unknown) date) 58.4 (50-75) % unknown) (unknown) (no (unknown) (unknown) New (units (unkno wn) date) unknown) (unknown) (no (unknown) (unknown) ORDERED: Wet Prep (units (unknown) date) unknown) (unknown) (no (unknown) (unknown) Ordered: (units (unkno wn) date) unknown) (unknown) (no (unknown) (unknown) Orders (units (unkno wn) date) unknown) (unknown) (no (unknown) (unknown) Other:? No (units (unk nown) date) pathologic free unknown) abdominal or pelvic fluid. (unknown) (no (unknown) (unknown) Ovaries:? The (units (u nknown) date) right ovary unknown) measures 2.7 x 1.9 x 1.7 cm, with a calculated ovarian (unknown) (no (unknown) (unknown) Oxygen Delivery (units (unknown) date) Method Room Air unknown) (unknown) (no (unknown) (unknown) Oxygen Delivery (units (unknown) date) Method unknown) (unknown) (no (unknown) (unknown) PAGE 1 (units (unkno wn) date) unknown) (unknown) (no (unknown) (unknown) PROCEDURE:? US (units (unknown) date) PELVIC COMPLETE unknown) (unknown) (no (unknown) (unknown) Patient (units (unkno wn) date) Disposition: Home unknown) (unknown) (no (unknown) (unknown) Patient History (units (unknown) date) unknown) (unknown) (no (unknown) (unknown) Patient reports (units (unknown) date) that she has a unknown) history of bacterial vaginosis as well. (unknown) (no (unknown) (unknown) Patient: (units (unkno wn) date) Carmen Díaz unknown) MR#: M (unknown) (no (unknown) (unknown) Phenazopyridine (units (unknown) date) HCl unknown) (Phenazopyridine 100 Mg Tablet) 100 mg PO NOW ONE (unknown) (no (unknown) (unknown) Plt Count (units (unkn own) date) (150-400) X103/uL unknown) (unknown) (no (unknown) (unknown) Plt Count 247 (units ( unknown) date) (150-400) X103/uL unknown) (unknown) (no (unknown) (unknown) Pneumonia (units (unkn own) date) unknown) (unknown) (no (unknown) (unknown) Potassium (units (unkn own) date) (3.4-5.1) mmol/L unknown) (unknown) (no (unknown) (unknown) Potassium 4.4 (units ( unknown) date) (3.4-5.1) mmol/L unknown) (unknown) (no (unknown) (unknown) Test (units (unknown) date) Serum,Qual Stat unknown) (unknown) (no (unknown) (unknown) Prescriptions: (units (unknown) date) unknown) (unknown) (no (unknown) (unknown) Previous Rx's (units ( unknown) date) unknown) (unknown) (no (unknown) (unknown) Procedure Result (units (unknown) date) Verified unknown) (unknown) (no (unknown) (unknown) Psych: mental (units ( unknown) date) status is grossly unknown) normal, congruent mood, normal affect, pleasant (unknown) (no (unknown) (unknown) Pulse Oximetry 96 (units (unknown) date) unknown) (unknown) (no (unknown) (unknown) Pulse Oximetry 99 (units (unknown) date) 97 unknown) (unknown) (no (unknown) (unknown) Pulse Rate 106 H (units (unknown) date) 107 H unknown) (unknown) (no (unknown) (unknown) Pulse Rate 106 H (units (unknown) date) unknown) (unknown) (no (unknown) (unknown) Pulse Rate 108 H (units (unknown) date) unknown) (unknown) (no (unknown) (unknown) RBC (4.0-5.2) (units ( unknown) date) X106/uL unknown) (unknown) (no (unknown) (unknown) RBC 5.11 (units (unkno wn) date) (4.0-5.2) X106/uL unknown) (unknown) (no (unknown) (unknown) RDW (11.6-14.8) % (units (unknown) date) unknown) (unknown) (no (unknown) (unknown) RDW 12.9 (units (unkno wn) date) (11.6-14.8) % unknown) (unknown) (no (unknown) (unknown) RUN DATE: (units (unkn own) date) 03/27/22 Specimen unknown) Inquiry (unknown) (no (unknown) (unknown) RUN TIME: 1603 (units (unknown) date) unknown) (unknown) (no (unknown) (unknown) Radiologist's (units ( unknown) date) Impression: unknown) (unknown) (no (unknown) (unknown) Real-time (units (unkn own) date) scanning was unknown) performed of the pelvic organs, with image (unknown) (no (unknown) (unknown) Referrals: (units (unk nown) date) unknown) (unknown) (no (unknown) (unknown) Re03/27/22 (units ( unknown) date) Disch: Status: REG unknown) ER (unknown) (no (unknown) (unknown) Related Data (units (u nknown) date) unknown) (unknown) (no (unknown) (unknown) Respiratory Rate (units (unknown) date) 16 unknown) (unknown) (no (unknown) (unknown) Respiratory Rate (units (unknown) date) unknown) (unknown) (no (unknown) (unknown) Respiratory: (units (u nknown) date) normal effort, unknown) able to speak in complete sentences, without (unknown) (no (unknown) (unknown) Result diagrams: (units (unknown) date) unknown) (unknown) (no (unknown) (unknown) Review of Systems (units (unknown) date) unknown) (unknown) (no (unknown) (unknown) Review of systems (units (unknown) date) is negative for unknown) acute abnormalities unless otherwise noted in (unknown) (no (unknown) (unknown) Reviewed vitals (units (unknown) date) signs and nursing unknown) notes. (unknown) (no (unknown) (unknown) SOURCE: Vaginal (units (unknown) date) ENTR: unknown) 03/27/22-[address]: Chastity Little MD (unknown) (no (unknown) (unknown) SPDESC: RECD: (units ( unknown) date) 03/27/22-1520 SUBM unknown) DR: Mary Cm (unknown) (no (unknown) (unknown) SPEC #: (units (unkno wn) date) [id number] NANCY: unknown) 03/27/22-1515 STATUS: COMP REQ (unknown) (no (unknown) (unknown) Serum , (units (unknown) date) Qual (Negative) unknown) (unknown) (no (unknown) (unknown) Serum , (units (unknown) date) Qual Negative unknown) (Negative) (unknown) (no (unknown) (unknown) She had thick (units ( unknown) date) white vaginal unknown) discharge for my exam and her wet prep is positive (unknown) (no (unknown) (unknown) She was given (units ( unknown) date) Pyridium in the unknown) emergency department but states it did not have (unknown) (no (unknown) (unknown) Signed By: (units (unk nown) date) unknown) (unknown) (no (unknown) (unknown) Site (units (unkno wn) date) unknown) (unknown) (no (unknown) (unknown) Skin: brisk (units (un known) date) capillary refill, unknown) without pallor or erythema (unknown) (no (unknown) (unknown) Smoking Status: (units (unknown) date) Never smoker unknown) (unknown) (no (unknown) (unknown) Social History (units (unknown) date) (Reviewed 03/27/22 unknown) @ 14:08 by Mary Cm [facility]) (unknown) (no (unknown) (unknown) Sodium (137-145) (units (unknown) date) mmol/L unknown) (unknown) (no (unknown) (unknown) Sodium 137 (units (unk nown) date) (137-145) mmol/L unknown) (unknown) (no (unknown) (unknown) Source: patient (units (unknown) date) unknown) (unknown) (no (unknown) (unknown) Stated Complaint: (units (unknown) date) abd pain since unknown) (unknown) (no (unknown) (unknown) Stop: 03/27/22 (units (unknown) date) 14:11 unknown) (unknown) (no (unknown) (unknown) Stop: 03/27/22 (units (unknown) date) 15:39 unknown) (unknown) (no (unknown) (unknown) Stop: 03/27/22 (units (unknown) date) 15:40 unknown) (unknown) (no (unknown) (unknown) Substance Use (units ( unknown) date) Type: does not use unknown) (unknown) (no (unknown) (unknown) Surgical History (units (unknown) date) (Reviewed 03/27/22 unknown) @ 14:08 by Mary Cm [facility]) (unknown) (no (unknown) (unknown) TECHNIQUE:? (units (un known) date) unknown) (unknown) (no (unknown) (unknown) Temperature 98.5 (units (unknown) date) F unknown) (unknown) (no (unknown) (unknown) Temperature (units (un known) date) unknown) (unknown) (no (unknown) (unknown) They did not find (units (unknown) date) any large cysts or unknown) vascular complications your pelvis. This (unknown) (no (unknown) (unknown) This is a (units (unkn own) date) 31-year-old female unknown) presents to emergency department complaining of (unknown) (no (unknown) (unknown) This is a (units (unkn own) date) 31-year-old female unknown) with history of type 2 diabetes, on Jardiance, who (unknown) (no (unknown) (unknown) Time Seen by (units (u nknown) date) Provider: 03/27/22 unknown) 13:36 (unknown) (no (unknown) (unknown) To assist (units (unkn own) date) unknown) (unknown) (no (unknown) (unknown) Total Bilirubin (units (unknown) date) (0.2-1.3) mg/dL unknown) (unknown) (no (unknown) (unknown) Total Bilirubin (units (unknown) date) 0.3 (0.2-1.3) unknown) mg/dL (unknown) (no (unknown) (unknown) Total Protein (units ( unknown) date) (6.3-8.2) g/dL unknown) (unknown) (no (unknown) (unknown) Total Protein 7.3 (units (unknown) date) (6.3-8.2) g/dL unknown) (unknown) (no (unknown) (unknown) Transvaginal (units (u nknown) date) ultrasound shows unknown) normal ovarian flow, endometrium measures 6 mm in (unknown) (no (unknown) (unknown) Trichomonas: None (units (unknown) date) seen unknown) (unknown) (no (unknown) (unknown) US - LINOLEUM PRINTER: (units (unkn own) date) unknown) (unknown) (no (unknown) (unknown) US pelvic (units (unkn own) date) complete Stat unknown) (unknown) (no (unknown) (unknown) Ur Culture (units (unk nown) date) Indicated? Cult unknown) not indicated (unknown) (no (unknown) (unknown) Ur Culture (units (unk nown) date) Indicated? unknown) (unknown) (no (unknown) (unknown) Ur Leukocyte (units (u nknown) date) Esterase unknown) (NEGATIVE) (unknown) (no (unknown) (unknown) Ur Leukocyte (units (u nknown) date) Esterase Negative unknown) (NEGATIVE) (unknown) (no (unknown) (unknown) Ur Specific (units (un known) date) [place] unknown) (1.000-1.035) (unknown) (no (unknown) (unknown) Ur Specific (units (un known) date) [place] 1.015 unknown) (1.000-1.035) (unknown) (no (unknown) (unknown) Ur Squamous Epith (units (unknown) date) Cells (0-5/HPF) unknown) (unknown) (no (unknown) (unknown) Ur Squamous Epith (units (unknown) date) Cells 0-1 /hpf unknown) (0-5/HPF) (unknown) (no (unknown) (unknown) Urinalysis and (units (unknown) date) Microscopic Stat unknown) (unknown) (no (unknown) (unknown) Urine Appearance (units (unknown) date) Clear unknown) (unknown) (no (unknown) (unknown) Urine Appearance (units (unknown) date) unknown) (unknown) (no (unknown) (unknown) Urine Bacteria (units (unknown) date) (None) unknown) (unknown) (no (unknown) (unknown) Urine Bacteria (units (unknown) date) None seen (None) unknown) (unknown) (no (unknown) (unknown) Urine Bilirubin (units (unknown) date) (NEGATIVE) unknown) (unknown) (no (unknown) (unknown) Urine Bilirubin (units (unknown) date) Negative unknown) (NEGATIVE) (unknown) (no (unknown) (unknown) Urine Color (units (un known) date) Yellow unknown) (unknown) (no (unknown) (unknown) Urine Color (units (un known) date) unknown) (unknown) (no (unknown) (unknown) Urine Glucose (units ( unknown) date) (UA) (Negative) unknown) g/dL (unknown) (no (unknown) (unknown) Urine Glucose (units ( unknown) date) (UA) 3+ H unknown) (Negative) g/dL (unknown) (no (unknown) (unknown) Urine Ketones (units ( unknown) date) (NEGATIVE) unknown) (unknown) (no (unknown) (unknown) Urine Ketones (units ( unknown) date) Negative unknown) (NEGATIVE) (unknown) (no (unknown) (unknown) Urine Nitrate (units ( unknown) date) (Negative) unknown) (unknown) (no (unknown) (unknown) Urine Nitrate (units ( unknown) date) Negative unknown) (Negative) (unknown) (no (unknown) (unknown) Urine Occult (units (u nknown) date) Blood (Negative) unknown) (unknown) (no (unknown) (unknown) Urine Occult (units (u nknown) date) Blood Negative unknown) (Negative) (unknown) (no (unknown) (unknown) Urine Protein (units ( unknown) date) (Negative) unknown) (unknown) (no (unknown) (unknown) Urine Protein (units ( unknown) date) Negative unknown) (Negative) (unknown) (no (unknown) (unknown) Urine RBC (units (unkn own) date) (0-5/HPF) unknown) (unknown) (no (unknown) (unknown) Urine RBC None (units (unknown) date) seen (0-5/HPF) unknown) (unknown) (no (unknown) (unknown) Urine (units (unkno wn) date) Urobilinogen (0.2) unknown) E.U./dL (unknown) (no (unknown) (unknown) Urine (units (unkno wn) date) Urobilinogen 0.2 unknown) (0.2) E.U./dL (unknown) (no (unknown) (unknown) Urine WBC (units (unkn own) date) (0-5/HPF) unknown) (unknown) (no (unknown) (unknown) Urine WBC None (units (unknown) date) seen (0-5/HPF) unknown) (unknown) (no (unknown) (unknown) Urine pH (units (unkno wn) date) (4.5-8.0) unknown) (unknown) (no (unknown) (unknown) Urine pH 5.0 (units (u nknown) date) (4.5-8.0) unknown) (unknown) (no (unknown) (unknown) Uterus:? Uterus (units (unknown) date) is anteverted and unknown) normal in size at 7.6 x 5.3 x 3.1 cm. The (unknown) (no (unknown) (unknown) Visit Report (units (u nknown) date) Forms: Patient unknown) Portal/API (unknown) (no (unknown) (unknown) Vital Signs - 8 (units (unknown) date) hr unknown) (unknown) (no (unknown) (unknown) Vital Signs (units (un known) date) unknown) (unknown) (no (unknown) (unknown) Vital signs: (units (u nknown) date) unknown) (unknown) (no (unknown) (unknown) WBC (4.5-11.0) (units (unknown) date) X103/uL unknown) (unknown) (no (unknown) (unknown) WBC 8.7 (units (unkno wn) date) (4.5-11.0) X103/uL unknown) (unknown) (no (unknown) (unknown) We strive to (units (u nknown) date) produce accurate, unknown) complete, and clear reports of imaging services. (unknown) (no (unknown) (unknown) Wet Prep Tric BV (units (unknown) date) Bonita Final unknown) 03/27/22 (unknown) (no (unknown) (unknown) Wet Prep Tric BV (units (unknown) date) Bonita Stat unknown) (unknown) (no (unknown) (unknown) White blood cells (units (unknown) date) Moderate poly WBCs unknown) (unknown) (no (unknown) (unknown) Yeast: None seen (units (unknown) date) unknown) (unknown) (no (unknown) (unknown) Your (units (unknown) date) test was negative, unknown) take these pills twice a day for the next 7 (unknown) (no (unknown) (unknown) [ ] New (units (unkno wn) date) medication written unknown) as a paper prescription (unknown) (no (unknown) (unknown) [ ] No new (units (unk nown) date) medications given unknown) (unknown) (no (unknown) (unknown) [ x] New (units (unkno wn) date) medication unknown) prescriptions sent to your pharmacy: [[facility] (unknown) (no (unknown) (unknown) [Embedded Image (units (unknown) date) Not Available] unknown) (unknown) (no (unknown) (unknown) abdominal pain. (units (unknown) date) Has a history of unknown) bacterial vaginosis, cholecystectomy, (unknown) (no (unknown) (unknown) adnexal and (units (un known) date) endometrial unknown) structures by transabdominal scanning.? (unknown) (no (unknown) (unknown) agrees to (units (unkn own) date) discharge home. unknown) All questions and concerns answered at this time. (unknown) (no (unknown) (unknown) alcohol intake (units (unknown) date) frequency: 0-2 unknown) drinks per day (unknown) (no (unknown) (unknown) and cooperative (units (unknown) date) unknown) (unknown) (no (unknown) (unknown) and need for (units (u nknown) date) close follow-up. unknown) Patient is appropriate and amenable to discharge (unknown) (no (unknown) (unknown) and voice (units (unkn own) date) recognition unknown) software. Therefore, it may contain abnormal punctuation, (unknown) (no (unknown) (unknown) any effect on her (units (unknown) date) symptoms, she was unknown) also given Toradol to use as needed for her (unknown) (no (unknown) (unknown) appointment. Let (units (unknown) date) them know you were unknown) seen in the Emergency Department and that we (unknown) (no (unknown) (unknown) asked that you be (units (unknown) date) seen for unknown) follow-up. We will electronically transmit a record (unknown) (no (unknown) (unknown) bacteria, (units (unkn own) date) nitrites, and unknown) RBCs. Patient denies any recent fever or other (unknown) (no (unknown) (unknown) be more than a (units (unknown) date) normal amount, unknown) without adnexal tenderness (unknown) (no (unknown) (unknown) can be (units (unkno wn) date) unknown) (unknown) (no (unknown) (unknown) cholecystitis, (units (unknown) date) pancreatitis, unknown) perforated viscus, atypical appendicitis, colitis, (unknown) (no (unknown) (unknown) closely with (units (u nknown) date) outpatient unknown) providers as instructed. Patient understands plan and (unknown) (no (unknown) (unknown) combined (units (unkno wn) date) thickness, uterus unknown) is anteverted and normal in size, no adnexal masses, (unknown) (no (unknown) (unknown) concerning (units (unk nown) date) symptoms, such as unknown) [fever greater than 101F, chills, worsening pain, (unknown) (no (unknown) (unknown) concurrently. (units ( unknown) date) Empty your bladder unknown) frequently, we will call you if any of the (unknown) (no (unknown) (unknown) cyst with ovarian (units (unknown) date) cystectomy x1. unknown) (unknown) (no (unknown) (unknown) days, you can (units ( unknown) date) repeat the vaginal unknown) applicator as well to help manage acute (unknown) (no (unknown) (unknown) diverticulitis or (units (unknown) date) torsion. Extensive unknown) conversation about ER return precautions (unknown) (no (unknown) (unknown) documentation.? (units (unknown) date) unknown) (unknown) (no (unknown) (unknown) establish care (units (unknown) date) with one of the unknown) [facility] primary care providers. (unknown) (no (unknown) (unknown) for culture as (units (unknown) date) well just in case unknown) there is bacteria which did not show up on the (unknown) (no (unknown) (unknown) for poly wbc's. (units (unknown) date) This is most unknown) likely bacterial vaginitis, no clue cells were (unknown) (no (unknown) (unknown) for the last 4 (units (unknown) date) days. She denies unknown) having abnormal vaginal discharge, states that (unknown) (no (unknown) (unknown) glucose on her (units (unknown) date) lab work today is unknown) 130, her urine shows 3+ urine glucose. This is (unknown) (no (unknown) (unknown) has been informed (units (unknown) date) of results. unknown) Patient has been given strict return to ER (unknown) (no (unknown) (unknown) her is (units (unknown) date) deployed, denies unknown) any fever or chills. Denies urinary frequency (unknown) (no (unknown) (unknown) history and exam, (units (unknown) date) low suspicion for unknown) acute abdominal process, such as acute (unknown) (no (unknown) (unknown) home. Vital signs (units (unknown) date) are stable on unknown) repeat examination is unremarkable. Patient (unknown) (no (unknown) (unknown) homogeneous. ? (units (unknown) date) The endometrium unknown) measures 6 mm combined thickness.? (unknown) (no (unknown) (unknown) inaccuracies. (units ( unknown) date) unknown) (unknown) (no (unknown) (unknown) insertions and/or (units (unknown) date) omissions. unknown) Occasional wrong-word or sound-alike substitutions (unknown) (no (unknown) (unknown) instead of (units (unk nown) date) ibuprofen as unknown) needed for inflammation and pain, you may take Tylenol (unknown) (no (unknown) (unknown) is most likely (units (unknown) date) related to unknown) overgrowth of normal bacteria. (unknown) (no (unknown) (unknown) ketorolac 10 mg (units (unknown) date) tablet 10 mg PO unknown) TID PRN pain 5 days #14 03/27/22 (unknown) (no (unknown) (unknown) ketorolac 10 mg (units (unknown) date) tablet unknown) (unknown) (no (unknown) (unknown) leave by 16:00 (units (unknown) date) today. unknown) (unknown) (no (unknown) (unknown) october (units (unkno wn) date) unknown) (unknown) (no (unknown) (unknown) metronidazole 500 (units (unknown) date) mg tablet 500 mg unknown) PO BID 7 days #14 tabs 03/27/22 (unknown) (no (unknown) (unknown) metronidazole 500 (units (unknown) date) mg tablet unknown) (unknown) (no (unknown) (unknown) morphine Allergy (units (unknown) date) Severe ITCHING unknown) Verified 03/27/22 13:30 (unknown) (no (unknown) (unknown) most likely (units (un known) date) bacterial unknown) vaginitis, encourage patient to follow-up with her (unknown) (no (unknown) (unknown) myometrium is (units ( unknown) date) unknown) (unknown) (no (unknown) (unknown) no pathologic (units ( unknown) date) free abdominal or unknown) pelvic fluid with an unremarkable exam on (unknown) (no (unknown) (unknown) occur. Though we (units (unknown) date) review the report unknown) and make efforts to correct it, we do (unknown) (no (unknown) (unknown) of 5 cc. The left (units (unknown) date) ovary measures 3.2 unknown) x 2.1 x 2.5 cm, with a calculated ovarian (unknown) (no (unknown) (unknown) of today's note (units (unknown) date) if your PCP is in unknown) our system (unknown) (no (unknown) (unknown) or urgency, (units (un known) date) denies flank pain, unknown) shortness of breath, chest pain, back pain. (unknown) (no (unknown) (unknown) other tests are (units (unknown) date) positive and if unknown) you need an antibiotic. We have sent your urine (unknown) (no (unknown) (unknown) p.o. tolerant. (units (unknown) date) Serial abdominal unknown) exam without increase in abdominal pain. Given (unknown) (no (unknown) (unknown) pain. Her urine (units (unknown) date) was negative on unknown) 2nd test for wbc's, bacterial, RBCs. Her (unknown) (no (unknown) (unknown) persistent (units (unk nown) date) vomiting or other unknown) bothersome symptoms]. (unknown) (no (unknown) (unknown) precautions for (units (unknown) date) any new or unknown) worsening symptoms. Patient understands to follow up (unknown) (no (unknown) (unknown) presents to (units (unk nown) date) emergency unknown) department complaining of suprapubic fullness and pressure (unknown) (no (unknown) (unknown) primary care (units (u nknown) date) provider for a unknown) test of cure after treatment. She was given strict (unknown) (no (unknown) (unknown) radiology report. 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 (unknown) (no (unknown) (unknown) recommend that (units (unknown) date) unknown) (unknown) (no (unknown) (unknown) retest of your (units (unknown) date) urine and of your unknown) vaginal secretions. Hoping to get on top of (unknown) (no (unknown) (unknown) return (units (unkno wn) date) precautions to unknown) come back to the emergency department for any new or (unknown) (no (unknown) (unknown) section and (units (un known) date) ovarian cyst unknown) drainage. (unknown) (no (unknown) (unknown) seen however (units (u nknown) date) patient has unknown) history of this in the past. Gave her a intravaginal (unknown) (no (unknown) (unknown) seen in each (units (u nknown) date) ovary.? No adnexal unknown) masses are seen. (unknown) (no (unknown) (unknown) slide. (units (unkno wn) date) unknown) (unknown) (no (unknown) (unknown) suprapubic (units (unk nown) date) tenderness and unknown) pressure for the last 4 days. She is diabetic, on (unknown) (no (unknown) (unknown) symptoms. Please (units (unknown) date) stay hydrated, unknown) schedule a follow-up with your primary for (unknown) (no (unknown) (unknown) tabs (units (unkno wn) date) unknown) (unknown) (no (unknown) (unknown) templates (units (unkn own) date) unknown) (unknown) (no (unknown) (unknown) tenderness or (units ( unknown) date) exquisite unknown) tenderness with exam. (unknown) (no (unknown) (unknown) the next 5 days (units (unknown) date) and gave her 500 unknown) mg of p.o. Flagyl daily for the next 7 days. (unknown) (no (unknown) (unknown) the report be (units ( unknown) date) read carefully in unknown) proper context to recognize any text (unknown) (no (unknown) (unknown) the (units (unkno wn) date) unknown) (unknown) (no (unknown) (unknown) this for you with (units (unknown) date) the oral and unknown) vaginal regimen. Use the Toradol every 8 hours (unknown) (no (unknown) (unknown) treatment of (units (u nknown) date) Flagyl for her unknown) symptoms today, she can repeat this as needed over (unknown) (no (unknown) (unknown) us in improving (units (unknown) date) patient care, this unknown) report was composed using standard report (unknown) (no (unknown) (unknown) volume of (units (unkn own) date) unknown) (unknown) (no (unknown) (unknown) volume (units (unkno wn) date) unknown) (unknown) (no (unknown) (unknown) wheezing, (units (unkn own) date) stridor, or unknown) abnormal breath sounds. No retractions or tachypnea. (unknown) (no (unknown) (unknown) worsening (units (unkn own) date) symptoms. No unknown) peritoneal signs on abdominal exam. Patient remains Result panel 17 (unknown) (no date) (unknown) (unknown) No growth. (units (un known) unknown) Result panel 18 (unknown) (no date) (unknown) (unknown) No growth. (units (un known) unknown) Result panel 19 (unknown) (no (unknown) (unknown) (no value) (units (unk nown) date) unknown) (unknown) (no (unknown) (unknown) #: [id number] (units (un known) date) unknown) (unknown) (no (unknown) (unknown) <Electronically (units (unknown) date) signed by Mary solis) Yumiko RUBY Crew> (unknown) (no (unknown) (unknown) <Electronically (units (unknown) date) signed by Carmen Andrews unknown) Mank, D.O.> (unknown) (no (unknown) (unknown) <Mary Cm, (units (unknown) date) 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 - Last Filed: unknown) 03/27/22 18:48> (unknown) (no (unknown) (unknown) <Carmen Mckeon, (units (unknown) date) DO - Last Filed: unknown) 04/02/22 04:41> (unknown) (no (unknown) (unknown) *If you do not (units (unknown) date) have a primary unknown) care provider please contact [phone] to (unknown) (no (unknown) (unknown) *Please continue (units (unknown) date) to take your unknown) regular medications as directed. (unknown) (no (unknown) (unknown) *Please follow up (units (unknown) date) with your primary unknown) care provider in 2-3 days, call for an (unknown) (no (unknown) (unknown) *Return to (units (unk nown) date) Emergency unknown) Department if you should have any new, worsening, or (unknown) (no (unknown) (unknown) *What to do: (units (u nknown) date) unknown) (unknown) (no (unknown) (unknown) [id number] (units (unkn own) date) unknown) (unknown) (no (unknown) (unknown) 03/27/22 03/27/22 (units (unknown) date) 03/27/22 unknown) Range/Units (unknown) (no (unknown) (unknown) 03/27/22 14:17 (units (unknown) date) unknown) (unknown) (no (unknown) (unknown) 03/27/22 1848 (units ( unknown) date) unknown) (unknown) (no (unknown) (unknown) 03/27/22 (units (unkno wn) date) Range/Units unknown) (unknown) (no (unknown) (unknown) 03/27/22 (units (unkno wn) date) unknown) (unknown) (no (unknown) (unknown) 04/02/22 0441 (units ( unknown) date) unknown) (unknown) (no (unknown) (unknown) [address] [place] [address], (units (unknown) date) Kevon HARTLEY, unknown) [id number] (unknown) (no (unknown) (unknown) 13:24 03/27/22 (units (unknown) date) unknown) (unknown) (no (unknown) (unknown) 13:25 (units (unkno wn) date) unknown) (unknown) (no (unknown) (unknown) 13:27 03/27/22 (units (unknown) date) unknown) (unknown) (no (unknown) (unknown) 13:30 03/27/22 (units (unknown) date) unknown) (unknown) (no (unknown) (unknown) 14:00 (units (unkno wn) date) unknown) (unknown) (no (unknown) (unknown) 14:11 14:17 14:17 (units (unknown) date) unknown) (unknown) (no (unknown) (unknown) 14:18 (units (unkno wn) date) unknown) (unknown) (no (unknown) (unknown) 1546 (units (unkno wn) date) unknown) (unknown) (no (unknown) (unknown) 500 mg PO BID 7 (units (unknown) date) Days Qty: 14 0RF unknown) (unknown) (no (unknown) (unknown) 9 cc. The ovaries (units (unknown) date) have a normal unknown) sonographic appearance. Less than 12 follicles (unknown) (no (unknown) (unknown) ? (units (unkno wn) date) unknown) (unknown) (no (unknown) (unknown) ?? 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 wn) date) unknown) (unknown) (no (unknown) (unknown) AST (14-36) IU/L (units (unknown) date) unknown) (unknown) (no (unknown) (unknown) AST 32 (14-36) (units (unknown) date) IU/L unknown) (unknown) (no (unknown) (unknown) (units (unknown) date) Unit#: [id number] unknown) : 1990Location : ED (unknown) (no (unknown) (unknown) Acetaminophen (units ( unknown) date) (Acetaminophen 325 unknown) Mg Tablet) 650 mg PO NOW ONE (unknown) (no (unknown) (unknown) Activity (units (unkno wn) date) Restrictions/Addit unknown) ional Instructions: (unknown) (no (unknown) (unknown) Acute suprapubic (units (unknown) date) pain, Bacterial unknown) vaginosis (unknown) (no (unknown) (unknown) Additional (units (unk nown) date) Information: unknown) (unknown) (no (unknown) (unknown) Additional (units (unkn own) date) endovaginal unknown) scanning was necessary due to incomplete visualization of (unknown) (no (unknown) (unknown) Age/Sex: 31 / F (units (unknown) date) unknown) (unknown) (no (unknown) (unknown) Albumin (3.5-5.0) (units (unknown) date) g/dL unknown) (unknown) (no (unknown) (unknown) Albumin 4.2 (units (un known) date) (3.5-5.0) g/dL unknown) (unknown) (no (unknown) (unknown) Albumin/Globulin (units (unknown) date) Ratio (1.0-2.8) unknown) (unknown) (no (unknown) (unknown) Albumin/Globulin (units (unknown) date) Ratio 1.4 unknown) (1.0-2.8) (unknown) (no (unknown) (unknown) Alkaline (units (unkno wn) date) Phosphatase unknown) (38-126) U/L (unknown) (no (unknown) (unknown) Alkaline (units (unkno wn) date) Phosphatase 90 unknown) (38-126) U/L (unknown) (no (unknown) (unknown) Allergies (units (unkn own) date) unknown) (unknown) (no (unknown) (unknown) Allergy/AdvReac (units (unknown) date) Type Severity unknown) Reaction Status Date / Time (unknown) (no (unknown) (unknown) Anxiety (units (unkno wn) date) unknown) (unknown) (no (unknown) (unknown) Approved by: (units (u nknown) date) Geraldine Goodman M.D. unknown) on 03/27/2022 at 16:09 ? (unknown) (no (unknown) (unknown) BUN (7-17) mg/dL (units (unknown) date) unknown) (unknown) (no (unknown) (unknown) BUN 10 (7-17) (units ( unknown) date) mg/dL unknown) (unknown) (no (unknown) (unknown) BUN/Creatinine (units (unknown) date) Ratio (6-22) unknown) (unknown) (no (unknown) (unknown) BUN/Creatinine (units (unknown) date) Ratio 17.2 (6-22) unknown) (unknown) (no (unknown) (unknown) Baso # (Auto) (units ( unknown) date) (0-100) /uL unknown) (unknown) (no (unknown) (unknown) Baso # (Auto) 0 (units (unknown) date) (0-100) /uL unknown) (unknown) (no (unknown) (unknown) Baso % (Auto) (units ( unknown) date) (0-2) % unknown) (unknown) (no (unknown) (unknown) Baso % (Auto) 0.2 (units (unknown) date) (0-2) % unknown) (unknown) (no (unknown) (unknown) Blood Pressure (units (unknown) date) 129/82 128/77 unknown) (unknown) (no (unknown) (unknown) Blood Pressure (units (unknown) date) 136/76 138/76 unknown) (unknown) (no (unknown) (unknown) Blood Pressure (units (unknown) date) 138/76 03/27/22 unknown) 13:24 (unknown) (no (unknown) (unknown) Blood Pressure (units (unknown) date) unknown) (unknown) (no (unknown) (unknown) COMPARISON:? (units (u nknown) date) None. unknown) (unknown) (no (unknown) (unknown) Calcium (units (unkno wn) date) (8.4-10.2) mg/dL unknown) (unknown) (no (unknown) (unknown) Calcium 9.2 (units (un known) date) (8.4-10.2) mg/dL unknown) (unknown) (no (unknown) (unknown) Carbon Dioxide (units (unknown) date) (22-32) mmol/L unknown) (unknown) (no (unknown) (unknown) Carbon Dioxide 27 (units (unknown) date) (22-32) mmol/L unknown) (unknown) (no (unknown) (unknown) Cardiovascular: (units (unknown) date) regular rate and unknown) rhythm, no peripheral edema, warm extremities (unknown) (no (unknown) (unknown) Chastity Little, (units (unknown) date) MD [Primary Care unknown) Provider] (unknown) (no (unknown) (unknown) Chief Complaint: (units (unknown) date) Abdominal Pain unknown) (unknown) (no (unknown) (unknown) Chloride (98-107) (units (unknown) date) mmol/L unknown) (unknown) (no (unknown) (unknown) Chloride 102 (units (u nknown) date) (98-107) mmol/L unknown) (unknown) (no (unknown) (unknown) Clinical (units (unkno wn) date) Impression: unknown) (unknown) (no (unknown) (unknown) Clue cells: None (units (unknown) date) seen unknown) (unknown) (no (unknown) (unknown) Cosign (units (unkno wn) date) unknown) (unknown) (no (unknown) (unknown) Course (units (unkno wn) date) unknown) (unknown) (no (unknown) (unknown) Creatinine (units (unk nown) date) (0.52-1.04) mg/dL unknown) (unknown) (no (unknown) (unknown) Creatinine 0.58 (units (unknown) date) (0.52-1.04) mg/dL unknown) (unknown) (no (unknown) (unknown) SachawMary Yumiko (units (unknown) date) 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 unknown) (unknown) (no (unknown) (unknown) : 1990 (units (unknown) date) Acct:[id number] unknown) (unknown) (no (unknown) (unknown) Date of Service: (units (unknown) date) 03/27/22 unknown) (unknown) (no (unknown) (unknown) Denies any upper (units (unknown) date) abdominal pain, unknown) has a history of cholecystectomy and ovarian (unknown) (no (unknown) (unknown) Denies any upper (units (unknown) date) abdominal pain, unknown) nausea or vomiting. States that she needs to (unknown) (no (unknown) (unknown) Departure (units (unkn own) date) unknown) (unknown) (no (unknown) (unknown) Depression (units (unk nown) date) unknown) (unknown) (no (unknown) (unknown) Dictated by: (units (u nknown) date) Geraldine Goodman M.D. unknown) on 03/27/2022 at 16:08 ? ? (unknown) (no (unknown) (unknown) Discharge Plan (units (unknown) date) unknown) (unknown) (no (unknown) (unknown) Discontinued (units (u nknown) date) Medications unknown) (unknown) (no (unknown) (unknown) Documented By: (units (unknown) date) [facility] unknown) (unknown) (no (unknown) (unknown) ED Attending (units (u nknown) date) Cosignature unknown) Attestation: (unknown) (no (unknown) (unknown) ER Physician: (units ( unknown) date) Mary Cm unknown) 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 (unknown) (no (unknown) (unknown) Emergency Report (units (unknown) date) unknown) (unknown) (no (unknown) (unknown) Eos # (Auto) (units (u nknown) date) (0-450) /uL unknown) (unknown) (no (unknown) (unknown) Eos # (Auto) 100 (units (unknown) date) (0-450) /uL unknown) (unknown) (no (unknown) (unknown) Eos % (Auto) (units (u nknown) date) (2-4) % unknown) (unknown) (no (unknown) (unknown) Eos % (Auto) 1.6 (units (unknown) date) L (2-4) % unknown) (unknown) (no (unknown) (unknown) Estimated GFR > (units (unknown) date) 60 (>60) mL/min unknown) (unknown) (no (unknown) (unknown) Estimated GFR (units ( unknown) date) (>60) mL/min unknown) (unknown) (no (unknown) (unknown) Exam Narrative: (units (unknown) date) unknown) (unknown) (no (unknown) (unknown) Exam (units (unkno wn) date) unknown) (unknown) (no (unknown) (unknown) FAX TO: (units (unkno wn) date) unknown) (unknown) (no (unknown) (unknown) FINDINGS:? 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 (units (unknown) date) exam completed, unknown) patient has white vaginal discharge appears to (unknown) (no (unknown) (unknown) General (units (unkno wn) date) unknown) (unknown) (no (unknown) (unknown) General: (units (unkno wn) date) cooperative, unknown) comfortable, in no acute distress, well groomed (unknown) (no (unknown) (unknown) Globulin (units (unkno wn) date) (1.7-4.1) g/dL unknown) (unknown) (no (unknown) (unknown) Globulin 3.1 (units (u nknown) date) (1.7-4.1) g/dL unknown) (unknown) (no (unknown) (unknown) Glucose (70-100) (units (unknown) date) mg/dL unknown) (unknown) (no (unknown) (unknown) Glucose 130 H (units ( unknown) date) (70-100) mg/dL unknown) (unknown) (no (unknown) (unknown) HEENT: (units (unkno wn) date) symmetrical facial unknown) expressions, moist mucous membranes (unknown) (no (unknown) (unknown) HPI - Abdominal (units (unknown) date) Pain unknown) (unknown) (no (unknown) (unknown) HPI narrative: (units (unknown) date) unknown) (unknown) (no (unknown) (unknown) HPI (units (unkno wn) date) unknown) (unknown) (no (unknown) (unknown) [place] ] (units (unkno wn) date) unknown) (unknown) (no (unknown) (unknown) Hct (36-46) % (units ( unknown) date) unknown) (unknown) (no (unknown) (unknown) Hct 44.6 (36-46) (units (unknown) date) % unknown) (unknown) (no (unknown) (unknown) Hgb (12.0-16.0) (units (unknown) date) g/dL unknown) (unknown) (no (unknown) (unknown) Hgb 14.9 (units (unkno wn) date) (12.0-16.0) g/dL unknown) (unknown) (no (unknown) (unknown) History of (units (unk nown) date) Present Illness unknown) (unknown) (no (unknown) (unknown) History of (units (unk nown) date) removal of ovarian unknown) cyst (unknown) (no (unknown) (unknown) Hx of (units (unkno wn) date) cholecystectomy unknown) (unknown) (no (unknown) (unknown) I was immediately (units (unknown) date) available in the unknown) department for consultation. Documentation (unknown) (no (unknown) (unknown) IMPRESSION:? (units (u nknown) date) Unremarkable exam. unknown) (unknown) (no (unknown) (unknown) INDICATIONS:? (units ( unknown) date) suprapubic unknown) tenderness, not bladder infection, hx ovarian cys (unknown) (no (unknown) (unknown) Imaging Data (units (u nknown) date) unknown) (unknown) (no (unknown) (unknown) Initial Vital (units ( unknown) date) Signs unknown) (unknown) (no (unknown) (unknown) Initial Vital (units ( unknown) date) Signs: unknown) (unknown) (no (unknown) (unknown) Instructions: (units ( unknown) date) Bacterial unknown) Vaginosis (unknown) (no (unknown) (unknown) [facility] (units (unknown) date) [address] unknown) [place] [address] (unknown) (no (unknown) (unknown) [facility] (units (unknown) date) Laboratory CLIA ID unknown) [id number] (unknown) (no (unknown) (unknown) Jardiance, UA was (units (unknown) date) negative both POC unknown) on the urine dip and microscopy for WBCs, (unknown) (no (unknown) (unknown) Ketorolac (units (unkn own) date) Tromethamine unknown) (Ketorolac 10 Mg Tablet) 10 mg PO NOW ONE (unknown) (no (unknown) (unknown) Lab Data (units (unkno wn) date) unknown) (unknown) (no (unknown) (unknown) Lab Results (units (un known) date) unknown) (unknown) (no (unknown) (unknown) Labs: (units (unkno wn) date) unknown) (unknown) (no (unknown) (unknown) Last Admin: (units (un known) date) 03/27/22 14:36 unknown) Dose: 10 mg (unknown) (no (unknown) (unknown) Last Admin: (units (un known) date) 03/27/22 14:36 unknown) Dose: 650 mg (unknown) (no (unknown) (unknown) Last Admin: (units (un known) date) 03/27/22 14:37 unknown) Dose: 100 mg (unknown) (no (unknown) (unknown) Last Admin: (units (un known) date) 03/27/22 15:49 unknown) Dose: 5 applic (unknown) (no (unknown) (unknown) Last Admin: (units (un known) date) 03/27/22 15:49 unknown) Dose: 500 mg (unknown) (no (unknown) (unknown) Lipase (23-300) (units (unknown) date) U/L unknown) (unknown) (no (unknown) (unknown) Lipase 116 (units (unk nown) date) (23-300) U/L unknown) (unknown) (no (unknown) (unknown) Lymph # (Auto) (units (unknown) date) (5528-6604) /uL unknown) (unknown) (no (unknown) (unknown) Lymph # (Auto) (units (unknown) date) 3100 ([id number]) unknown) /uL (unknown) (no (unknown) (unknown) Lymph % (Auto) (units (unknown) date) (25-40) % unknown) (unknown) (no (unknown) (unknown) Lymph % (Auto) (units (unknown) date) 35.2 (25-40) % unknown) (unknown) (no (unknown) (unknown) MCH (26-34) PG (units (unknown) date) unknown) (unknown) (no (unknown) (unknown) MCH 29.1 (26-34) (units (unknown) date) PG unknown) (unknown) (no (unknown) (unknown) MCHC (30-36) % (units (unknown) date) unknown) (unknown) (no (unknown) (unknown) MCHC 33.4 (30-36) (units (unknown) date) % unknown) (unknown) (no (unknown) (unknown) MCV (80-100) fL (units (unknown) date) unknown) (unknown) (no (unknown) (unknown) MCV 87.2 (80-100) (units (unknown) date) fL unknown) (unknown) (no (unknown) (unknown) MDM - Abdominal (units (unknown) date) Pain unknown) (unknown) (no (unknown) (unknown) MDM Narrative (units ( unknown) date) unknown) (unknown) (no (unknown) (unknown) MSK: moves all (units (unknown) date) extremities, unknown) neurovascularly intact, no weakness, normal tone (unknown) (no (unknown) (unknown) Medical History (units (unknown) date) (Updated 03/27/22 unknown) @ 15:55 by Mary Cm [facility]) (unknown) (no (unknown) (unknown) Medical decision (units (unknown) date) making narrative: unknown) (unknown) (no (unknown) (unknown) Medication (units (unk nown) date) Instructions unknown) Recorded (unknown) (no (unknown) (unknown) Metronidazole (units ( unknown) date) (Metronidazole unknown) 0.75% 70 Gm Gel) 5 applic VAG NOW ONE (unknown) (no (unknown) (unknown) Metronidazole (units ( unknown) date) (Metronidazole 500 unknown) Mg Tablet) 500 mg PO NOW ONE (unknown) (no (unknown) (unknown) Mode of arrival: (units (unknown) date) Ambulatory unknown) (unknown) (no (unknown) (unknown) Gage # (Auto) (units ( unknown) date) (0-900) /uL unknown) (unknown) (no (unknown) (unknown) Gage # (Auto) 400 (units (unknown) date) (0-900) /uL unknown) (unknown) (no (unknown) (unknown) Gage % (Auto) (units ( unknown) date) (3-14) % unknown) (unknown) (no (unknown) (unknown) Gage % (Auto) 4.6 (units (unknown) date) (3-14) % unknown) (unknown) (no (unknown) (unknown) Name: (units (unkno wn) date) Carmen Díaz unknown) Age/Sex: 31/F Attend Dr: (unknown) (no (unknown) (unknown) Narrative (units (unkn own) date) unknown) (unknown) (no (unknown) (unknown) Narrative: (units (unk nown) date) unknown) (unknown) (no (unknown) (unknown) Neuro: normal (units ( unknown) date) speech and unknown) cognition, A+O x3, ambulatory, clear speech (unknown) (no (unknown) (unknown) Neut # (Auto) (units ( unknown) date) (5784-7744) /uL unknown) (unknown) (no (unknown) (unknown) Neut # (Auto) (units ( unknown) date) 5100 (3170-1869) unknown) /uL (unknown) (no (unknown) (unknown) Neut % (Auto) (units ( unknown) date) (50-75) % unknown) (unknown) (no (unknown) (unknown) Neut % (Auto) (units ( unknown) date) 58.4 (50-75) % unknown) (unknown) (no (unknown) (unknown) New (units (unkno wn) date) unknown) (unknown) (no (unknown) (unknown) ORDERED: Wet Prep (units (unknown) date) unknown) (unknown) (no (unknown) (unknown) Ordered: (units (unkno wn) date) unknown) (unknown) (no (unknown) (unknown) Orders (units (unkno wn) date) unknown) (unknown) (no (unknown) (unknown) Other:? No (units (unk nown) date) pathologic free unknown) abdominal or pelvic fluid. (unknown) (no (unknown) (unknown) Ovaries:? The (units (u nknown) date) right ovary unknown) measures 2.7 x 1.9 x 1.7 cm, with a calculated ovarian (unknown) (no (unknown) (unknown) Oxygen Delivery (units (unknown) date) Method Room Air unknown) (unknown) (no (unknown) (unknown) Oxygen Delivery (units (unknown) date) Method unknown) (unknown) (no (unknown) (unknown) PAGE 1 (units (unkno wn) date) unknown) (unknown) (no (unknown) (unknown) PROCEDURE:? US (units (unknown) date) PELVIC COMPLETE unknown) (unknown) (no (unknown) (unknown) Patient (units (unkno wn) date) Disposition: Home unknown) (unknown) (no (unknown) (unknown) Patient History (units (unknown) date) unknown) (unknown) (no (unknown) (unknown) Patient reports (units (unknown) date) that she has a unknown) history of bacterial vaginosis as well. (unknown) (no (unknown) (unknown) Patient: (units (unkno wn) date) Carmen Díaz unknown) MR#: M (unknown) (no (unknown) (unknown) Phenazopyridine (units (unknown) date) HCl unknown) (Phenazopyridine 100 Mg Tablet) 100 mg PO NOW ONE (unknown) (no (unknown) (unknown) Plt Count (units (unkn own) date) (150-400) X103/uL unknown) (unknown) (no (unknown) (unknown) Plt Count 247 (units ( unknown) date) (150-400) X103/uL unknown) (unknown) (no (unknown) (unknown) Pneumonia (units (unkn own) date) unknown) (unknown) (no (unknown) (unknown) Potassium (units (unkn own) date) (3.4-5.1) mmol/L unknown) (unknown) (no (unknown) (unknown) Potassium 4.4 (units ( unknown) date) (3.4-5.1) mmol/L unknown) (unknown) (no (unknown) (unknown) Prescriptions: (units (unknown) date) unknown) (unknown) (no (unknown) (unknown) Previous Rx's (units ( unknown) date) unknown) (unknown) (no (unknown) (unknown) Procedure Result (units (unknown) date) Verified unknown) (unknown) (no (unknown) (unknown) Psych: mental (units ( unknown) date) status is grossly unknown) normal, congruent mood, normal affect, pleasant (unknown) (no (unknown) (unknown) Pulse Oximetry 96 (units (unknown) date) unknown) (unknown) (no (unknown) (unknown) Pulse Oximetry 99 (units (unknown) date) 97 unknown) (unknown) (no (unknown) (unknown) Pulse Rate 106 H (units (unknown) date) 107 H unknown) (unknown) (no (unknown) (unknown) Pulse Rate 106 H (units (unknown) date) unknown) (unknown) (no (unknown) (unknown) Pulse Rate 108 H (units (unknown) date) unknown) (unknown) (no (unknown) (unknown) RBC (4.0-5.2) (units ( unknown) date) X106/uL unknown) (unknown) (no (unknown) (unknown) RBC 5.11 (units (unkno wn) date) (4.0-5.2) X106/uL unknown) (unknown) (no (unknown) (unknown) RDW (11.6-14.8) % (units (unknown) date) unknown) (unknown) (no (unknown) (unknown) RDW 12.9 (units (unkno wn) date) (11.6-14.8) % unknown) (unknown) (no (unknown) (unknown) RUN DATE: (units (unkn own) date) 03/27/22 Specimen unknown) Inquiry (unknown) (no (unknown) (unknown) RUN TIME: 1603 (units (unknown) date) unknown) (unknown) (no (unknown) (unknown) Radiologist's (units ( unknown) date) Impression: unknown) (unknown) (no (unknown) (unknown) Real-time (units (unkn own) date) scanning was unknown) performed of the pelvic organs, with image (unknown) (no (unknown) (unknown) Referrals: (units (unk nown) date) unknown) (unknown) (no (unknown) (unknown) Re03/27/22 (units ( unknown) date) Disch: Status: REG unknown) ER (unknown) (no (unknown) (unknown) Related Data (units (u nknown) date) unknown) (unknown) (no (unknown) (unknown) Respiratory Rate (units (unknown) date) 16 unknown) (unknown) (no (unknown) (unknown) Respiratory Rate (units (unknown) date) unknown) (unknown) (no (unknown) (unknown) Respiratory: (units (u nknown) date) normal effort, unknown) able to speak in complete sentences, without (unknown) (no (unknown) (unknown) Result diagrams: (units (unknown) date) unknown) (unknown) (no (unknown) (unknown) Review of Systems (units (unknown) date) unknown) (unknown) (no (unknown) (unknown) Review of systems (units (unknown) date) is negative for unknown) acute abnormalities unless otherwise noted in (unknown) (no (unknown) (unknown) Reviewed vitals (units (unknown) date) signs and nursing unknown) notes. (unknown) (no (unknown) (unknown) SOURCE: Vaginal (units (unknown) date) ENTR: unknown) 03/27/[address]: Chastity Little MD (unknown) (no (unknown) (unknown) SPDESC: RECD: (units ( unknown) date) 03/27/22 SUBM unknown) DR: Mary Cm (unknown) (no (unknown) (unknown) SPEC #: (units (unkno wn) date) [id number] NANCY: unknown) 03/27/22 STATUS: COMP REQ (unknown) (no (unknown) (unknown) Serum , (units (unknown) date) Qual (Negative) unknown) (unknown) (no (unknown) (unknown) Serum , (units (unknown) date) Qual Negative unknown) (Negative) (unknown) (no (unknown) (unknown) She had thick (units ( unknown) date) white vaginal unknown) discharge for my exam and her wet prep is positive (unknown) (no (unknown) (unknown) She was given (units ( unknown) date) Pyridium in the unknown) emergency department but states it did not have (unknown) (no (unknown) (unknown) Signed By: (units (unk nown) date) unknown) (unknown) (no (unknown) (unknown) Site (units (unkno wn) date) unknown) (unknown) (no (unknown) (unknown) Skin: brisk (units (un known) date) capillary refill, unknown) without pallor or erythema (unknown) (no (unknown) (unknown) Smoking Status: (units (unknown) date) Never smoker unknown) (unknown) (no (unknown) (unknown) Social History (units (unknown) date) (Reviewed 03/27/22 unknown) @ 14:08 by FLORI Portillo) (unknown) (no (unknown) (unknown) Sodium (137-145) (units (unknown) date) mmol/L unknown) (unknown) (no (unknown) (unknown) Sodium 137 (units (unk nown) date) (137-145) mmol/L unknown) (unknown) (no (unknown) (unknown) Source: patient (units (unknown) date) unknown) (unknown) (no (unknown) (unknown) Stated Complaint: (units (unknown) date) abd pain since unknown) (unknown) (no (unknown) (unknown) Stop: 03/27/22 (units (unknown) date) 14:11 unknown) (unknown) (no (unknown) (unknown) Stop: 03/27/22 (units (unknown) date) 15:39 unknown) (unknown) (no (unknown) (unknown) Stop: 03/27/22 (units (unknown) date) 15:40 unknown) (unknown) (no (unknown) (unknown) Substance Use (units ( unknown) date) Type: does not use unknown) (unknown) (no (unknown) (unknown) Surgical History (units (unknown) date) (Reviewed 03/27/22 unknown) @ 14:08 by FLORI Portillo) (unknown) (no (unknown) (unknown) TECHNIQUE:? (units (un known) date) unknown) (unknown) (no (unknown) (unknown) Temperature 98.5 (units (unknown) date) F unknown) (unknown) (no (unknown) (unknown) Temperature (units (un known) date) unknown) (unknown) (no (unknown) (unknown) They did not find (units (unknown) date) any large cysts or unknown) vascular complications your pelvis. This (unknown) (no (unknown) (unknown) This is a (units (unkn own) date) 31-year-old female unknown) presents to emergency department complaining of (unknown) (no (unknown) (unknown) This is a (units (unkn own) date) 31-year-old female unknown) with history of type 2 diabetes, on Jardiance, who (unknown) (no (unknown) (unknown) Time Seen by (units (u nknown) date) Provider: 03/27/22 unknown) 13:36 (unknown) (no (unknown) (unknown) To assist (units (unkn own) date) unknown) (unknown) (no (unknown) (unknown) Total Bilirubin (units (unknown) date) (0.2-1.3) mg/dL unknown) (unknown) (no (unknown) (unknown) Total Bilirubin (units (unknown) date) 0.3 (0.2-1.3) unknown) mg/dL (unknown) (no (unknown) (unknown) Total Protein (units ( unknown) date) (6.3-8.2) g/dL unknown) (unknown) (no (unknown) (unknown) Total Protein 7.3 (units (unknown) date) (6.3-8.2) g/dL unknown) (unknown) (no (unknown) (unknown) Transvaginal (units (u nknown) date) ultrasound shows unknown) normal ovarian flow, endometrium measures 6 mm in (unknown) (no (unknown) (unknown) Trichomonas: None (units (unknown) date) seen unknown) (unknown) (no (unknown) (unknown) US - LINOLEUM PRINTER: (units (unkn own) date) unknown) (unknown) (no (unknown) (unknown) Ur Culture (units (unk nown) date) Indicated? Cult unknown) not indicated (unknown) (no (unknown) (unknown) Ur Culture (units (unk nown) date) Indicated? unknown) (unknown) (no (unknown) (unknown) Ur Leukocyte (units (u nknown) date) Esterase unknown) (NEGATIVE) (unknown) (no (unknown) (unknown) Ur Leukocyte (units (u nknown) date) Esterase Negative unknown) (NEGATIVE) (unknown) (no (unknown) (unknown) Ur Specific (units (un known) date) [place] unknown) (1.000-1.035) (unknown) (no (unknown) (unknown) Ur Specific (units (un known) date) [place] 1.015 unknown) (1.000-1.035) (unknown) (no (unknown) (unknown) Ur Squamous Epith (units (unknown) date) Cells (0-5/HPF) unknown) (unknown) (no (unknown) (unknown) Ur Squamous Epith (units (unknown) date) Cells 0-1 /hpf unknown) (0-5/HPF) (unknown) (no (unknown) (unknown) Urine Appearance (units (unknown) date) Clear unknown) (unknown) (no (unknown) (unknown) Urine Appearance (units (unknown) date) unknown) (unknown) (no (unknown) (unknown) Urine Bacteria (units (unknown) date) (None) unknown) (unknown) (no (unknown) (unknown) Urine Bacteria (units (unknown) date) None seen (None) unknown) (unknown) (no (unknown) (unknown) Urine Bilirubin (units (unknown) date) (NEGATIVE) unknown) (unknown) (no (unknown) (unknown) Urine Bilirubin (units (unknown) date) Negative unknown) (NEGATIVE) (unknown) (no (unknown) (unknown) Urine Color (units (un known) date) Yellow unknown) (unknown) (no (unknown) (unknown) Urine Color (units (un known) date) unknown) (unknown) (no (unknown) (unknown) Urine Glucose (units ( unknown) date) (UA) (Negative) unknown) g/dL (unknown) (no (unknown) (unknown) Urine Glucose (units ( unknown) date) (UA) 3+ H unknown) (Negative) g/dL (unknown) (no (unknown) (unknown) Urine Ketones (units ( unknown) date) (NEGATIVE) unknown) (unknown) (no (unknown) (unknown) Urine Ketones (units ( unknown) date) Negative unknown) (NEGATIVE) (unknown) (no (unknown) (unknown) Urine Nitrate (units ( unknown) date) (Negative) unknown) (unknown) (no (unknown) (unknown) Urine Nitrate (units ( unknown) date) Negative unknown) (Negative) (unknown) (no (unknown) (unknown) Urine Occult (units (u nknown) date) Blood (Negative) unknown) (unknown) (no (unknown) (unknown) Urine Occult (units (u nknown) date) Blood Negative unknown) (Negative) (unknown) (no (unknown) (unknown) Urine Protein (units ( unknown) date) (Negative) unknown) (unknown) (no (unknown) (unknown) Urine Protein (units ( unknown) date) Negative unknown) (Negative) (unknown) (no (unknown) (unknown) Urine RBC (units (unkn own) date) (0-5/HPF) unknown) (unknown) (no (unknown) (unknown) Urine RBC None (units (unknown) date) seen (0-5/HPF) unknown) (unknown) (no (unknown) (unknown) Urine (units (unkno wn) date) Urobilinogen (0.2) unknown) E.U./dL (unknown) (no (unknown) (unknown) Urine (units (unkno wn) date) Urobilinogen 0.2 unknown) (0.2) E.U./dL (unknown) (no (unknown) (unknown) Urine WBC (units (unkn own) date) (0-5/HPF) unknown) (unknown) (no (unknown) (unknown) Urine WBC None (units (unknown) date) seen (0-5/HPF) unknown) (unknown) (no (unknown) (unknown) Urine pH (units (unkno wn) date) (4.5-8.0) unknown) (unknown) (no (unknown) (unknown) Urine pH 5.0 (units (u nknown) date) (4.5-8.0) unknown) (unknown) (no (unknown) (unknown) Uterus:? Uterus (units (unknown) date) is anteverted and unknown) normal in size at 7.6 x 5.3 x 3.1 cm. The (unknown) (no (unknown) (unknown) Visit Report (units (u nknown) date) Forms: Patient unknown) Portal/API (unknown) (no (unknown) (unknown) Vital Signs - 8 (units (unknown) date) hr unknown) (unknown) (no (unknown) (unknown) Vital Signs (units (un known) date) unknown) (unknown) (no (unknown) (unknown) Vital signs: (units (u nknown) date) unknown) (unknown) (no (unknown) (unknown) WBC (4.5-11.0) (units (unknown) date) X103/uL unknown) (unknown) (no (unknown) (unknown) WBC 8.7 (units (unkno wn) date) (4.5-11.0) X103/uL unknown) (unknown) (no (unknown) (unknown) We strive to (units (u nknown) date) produce accurate, unknown) complete, and clear reports of imaging services. (unknown) (no (unknown) (unknown) Wet Prep Tric BV (units (unknown) date) [place] Final unknown) 03/27/22 (unknown) (no (unknown) (unknown) White blood cells (units (unknown) date) Moderate poly WBCs unknown) (unknown) (no (unknown) (unknown) Yeast: None seen (units (unknown) date) unknown) (unknown) (no (unknown) (unknown) Your (units (unknown) date) test was negative, unknown) take these pills twice a day for the next 7 (unknown) (no (unknown) (unknown) [ ] New (units (unkno wn) date) medication written unknown) as a paper prescription (unknown) (no (unknown) (unknown) [ ] No new (units (unk nown) date) medications given unknown) (unknown) (no (unknown) (unknown) [ x] New (units (unkno wn) date) medication unknown) prescriptions sent to your pharmacy: [[facility] (unknown) (no (unknown) (unknown) [Embedded Image (units (unknown) date) Not Available] unknown) (unknown) (no (unknown) (unknown) abdominal pain. (units (unknown) date) Has a history of unknown) bacterial vaginosis, cholecystectomy, (unknown) (no (unknown) (unknown) adnexal and (units (un known) date) endometrial unknown) structures by transabdominal scanning.? (unknown) (no (unknown) (unknown) agrees to (units (unkn own) date) discharge home. unknown) All questions and concerns answered at this time. (unknown) (no (unknown) (unknown) alcohol intake (units (unknown) date) frequency: 0-2 unknown) drinks per day (unknown) (no (unknown) (unknown) and cooperative (units (unknown) date) unknown) (unknown) (no (unknown) (unknown) and need for (units (u nknown) date) close follow-up. unknown) Patient is appropriate and amenable to discharge (unknown) (no (unknown) (unknown) and voice (units (unkn own) date) recognition unknown) software. Therefore, it may contain abnormal punctuation, (unknown) (no (unknown) (unknown) any effect on her (units (unknown) date) symptoms, she was unknown) also given Toradol to use as needed for her (unknown) (no (unknown) (unknown) appointment. Let (units (unknown) date) them know you were unknown) seen in the Emergency Department and that we (unknown) (no (unknown) (unknown) asked that you be (units (unknown) date) seen for unknown) follow-up. We will electronically transmit a record (unknown) (no (unknown) (unknown) bacteria, (units (unkn own) date) nitrites, and unknown) RBCs. Patient denies any recent fever or other (unknown) (no (unknown) (unknown) be more than a (units (unknown) date) normal amount, unknown) without adnexal tenderness (unknown) (no (unknown) (unknown) can be (units (unkno wn) date) unknown) (unknown) (no (unknown) (unknown) cholecystitis, (units (unknown) date) pancreatitis, unknown) perforated viscus, atypical appendicitis, colitis, (unknown) (no (unknown) (unknown) closely with (units (u nknown) date) outpatient unknown) providers as instructed. Patient understands plan and (unknown) (no (unknown) (unknown) combined (units (unkno wn) date) thickness, uterus unknown) is anteverted and normal in size, no adnexal masses, (unknown) (no (unknown) (unknown) concerning (units (unk nown) date) symptoms, such as unknown) [fever greater than 101F, chills, worsening pain, (unknown) (no (unknown) (unknown) concurrently. (units ( unknown) date) Empty your bladder unknown) frequently, we will call you if any of the (unknown) (no (unknown) (unknown) cyst with ovarian (units (unknown) date) cystectomy x1. unknown) (unknown) (no (unknown) (unknown) days, you can (units ( unknown) date) repeat the vaginal unknown) applicator as well to help manage acute (unknown) (no (unknown) (unknown) diverticulitis or (units (unknown) date) torsion. Extensive unknown) conversation about ER return precautions (unknown) (no (unknown) (unknown) documentation.? (units (unknown) date) unknown) (unknown) (no (unknown) (unknown) establish care (units (unknown) date) with one of the unknown) [facility] primary care providers. (unknown) (no (unknown) (unknown) for culture as (units (unknown) date) well just in case unknown) there is bacteria which did not show up on the (unknown) (no (unknown) (unknown) for poly wbc's. (units (unknown) date) This is most unknown) likely bacterial vaginitis, no clue cells were (unknown) (no (unknown) (unknown) for the last 4 (units (unknown) date) days. She denies unknown) having abnormal vaginal discharge, states that (unknown) (no (unknown) (unknown) glucose on her (units (unknown) date) lab work today is unknown) 130, her urine shows 3+ urine glucose. This is (unknown) (no (unknown) (unknown) has been informed (units (unknown) date) of results. unknown) Patient has been given strict return to ER (unknown) (no (unknown) (unknown) has been (units (unkno wn) date) reviewed. 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 Denies urinary frequency (unknown) (no (unknown) (unknown) history and exam, (units (unknown) date) low suspicion for unknown) acute abdominal process, such as acute (unknown) (no (unknown) (unknown) home. Vital signs (units (unknown) date) are stable on unknown) repeat examination is unremarkable. Patient (unknown) (no (unknown) (unknown) homogeneous. ? (units (unknown) date) The endometrium unknown) measures 6 mm combined thickness.? (unknown) (no (unknown) (unknown) inaccuracies. (units ( unknown) date) unknown) (unknown) (no (unknown) (unknown) insertions and/or (units (unknown) date) omissions. unknown) Occasional wrong-word or sound-alike substitutions (unknown) (no (unknown) (unknown) instead of (units (unk nown) date) ibuprofen as unknown) needed for inflammation and pain, you may take Tylenol (unknown) (no (unknown) (unknown) is most likely (units (unknown) date) related to unknown) overgrowth of normal bacteria. (unknown) (no (unknown) (unknown) leave by 16:00 (units (unknown) date) today. unknown) (unknown) (no (unknown) (unknown) may (units (unkno wn) date) unknown) (unknown) (no (unknown) (unknown) metronidazole 500 (units (unknown) date) mg tablet 500 mg unknown) PO BID 7 days #14 tabs 03/27/22 (unknown) (no (unknown) (unknown) metronidazole 500 (units (unknown) date) mg tablet unknown) (unknown) (no (unknown) (unknown) morphine Allergy (units (unknown) date) Severe ITCHING unknown) Verified 03/27/22 13:30 (unknown) (no (unknown) (unknown) most likely (units (un known) date) bacterial unknown) vaginitis, encourage patient to follow-up with her (unknown) (no (unknown) (unknown) myometrium is (units ( unknown) date) unknown) (unknown) (no (unknown) (unknown) no pathologic (units ( unknown) date) free abdominal or unknown) pelvic fluid with an unremarkable exam on (unknown) (no (unknown) (unknown) occur. Though we (units (unknown) date) review the report unknown) and make efforts to correct it, we do (unknown) (no (unknown) (unknown) of 5 cc. The left (units (unknown) date) ovary measures 3.2 unknown) x 2.1 x 2.5 cm, with a calculated ovarian (unknown) (no (unknown) (unknown) of today's note (units (unknown) date) if your PCP is in unknown) our system (unknown) (no (unknown) (unknown) or urgency, (units (un known) date) denies flank pain, unknown) shortness of breath, chest pain, back pain. (unknown) (no (unknown) (unknown) other tests are (units (unknown) date) positive and if unknown) you need an antibiotic. We have sent your urine (unknown) (no (unknown) (unknown) p.o. tolerant. (units (unknown) date) Serial abdominal unknown) exam without increase in abdominal pain. Given (unknown) (no (unknown) (unknown) pain. Her urine (units (unknown) date) was negative on unknown) 2nd test for wbc's, bacterial, RBCs. Her (unknown) (no (unknown) (unknown) persistent (units (unk nown) date) vomiting or other unknown) bothersome symptoms]. (unknown) (no (unknown) (unknown) precautions for (units (unknown) date) any new or unknown) worsening symptoms. Patient understands to follow up (unknown) (no (unknown) (unknown) presents to (units (unk nown) date) emergency unknown) department complaining of suprapubic fullness and pressure (unknown) (no (unknown) (unknown) primary care (units (u nknown) date) provider for a unknown) test of cure after treatment. She was given strict (unknown) (no (unknown) (unknown) radiology report. 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 (unknown) (no (unknown) (unknown) recommend that (units (unknown) date) unknown) (unknown) (no (unknown) (unknown) retest of your (units (unknown) date) urine and of your unknown) vaginal secretions. Hoping to get on top of (unknown) (no (unknown) (unknown) return (units (unkno wn) date) precautions to unknown) come back to the emergency department for any new or (unknown) (no (unknown) (unknown) section and (units (un known) date) ovarian cyst unknown) drainage. (unknown) (no (unknown) (unknown) seen however (units (u nknown) date) patient has unknown) history of this in the past. Gave her a intravaginal (unknown) (no (unknown) (unknown) seen in each (units (u nknown) date) ovary.? No adnexal unknown) masses are seen. (unknown) (no (unknown) (unknown) slide. (units (unkno wn) date) unknown) (unknown) (no (unknown) (unknown) suprapubic (units (unk nown) date) tenderness and unknown) pressure for the last 4 days. She is diabetic, on (unknown) (no (unknown) (unknown) symptoms. Please (units (unknown) date) stay hydrated, unknown) schedule a follow-up with your primary for (unknown) (no (unknown) (unknown) templates (units (unkn own) date) unknown) (unknown) (no (unknown) (unknown) tenderness or (units ( unknown) date) exquisite unknown) tenderness with exam. (unknown) (no (unknown) (unknown) the next 5 days (units (unknown) date) and gave her 500 unknown) mg of p.o. Flagyl daily for the next 7 days. (unknown) (no (unknown) (unknown) the report be (units ( unknown) date) read carefully in unknown) proper context to recognize any text (unknown) (no (unknown) (unknown) the (units (unkno wn) date) unknown) (unknown) (no (unknown) (unknown) this for you with (units (unknown) date) the oral and unknown) vaginal regimen. Use the Toradol every 8 hours (unknown) (no (unknown) (unknown) treatment of (units (u nknown) date) Flagyl for her unknown) symptoms today, she can repeat this as needed over (unknown) (no (unknown) (unknown) us in improving (units (unknown) date) patient care, this unknown) report was composed using standard report (unknown) (no (unknown) (unknown) volume of (units (unkn own) date) unknown) (unknown) (no (unknown) (unknown) volume (units (unkno wn) date) unknown) (unknown) (no (unknown) (unknown) wheezing, (units (unkn own) date) stridor, or unknown) abnormal breath sounds. No retractions or tachypnea. (unknown) (no (unknown) (unknown) worsening (units (unkn own) date) symptoms. No unknown) peritoneal signs on abdominal exam. Patient remains Social History No information. Vital Signs No information.
--- NOTE | 2022-04-07 17:00 | CT Report ---
PROCEDURE: ABDOMEN/PELVIS W INDICATIONS: RLQ abd pain CONTRAST: 100ml omni 200 TECHNIQUE: After the administration of nonionic contrast, 5 mm thick sections acquired from the diaphragms to th e symphysis. 5 mm thick coronal and sagittal reformats were acquired. For radiation dose reduction, the following was used: automated exposure control, adjustment of mA and/or kV according to patient size. COMPARISON: None. FINDINGS: Image quality: Excellent. ABDOMEN: Lung bases: Lung bases are clear. Heart size is normal. Solid organs: Liver and spleen are normal in size and enhancement. Gallbladder has been previously resected Biliary system is non dilated. Pancreas enhances normally. No adrenal nodules. Kidneys d emonstrate normal size and enhancement, without hydronephrosis. Peritoneum and bowel: Bowel loops demonstrate normal wall thickness and caliber. No free fluid or a ir. Nodes and vessels: No retroperitoneal or mesenteric adenopathy by size criteria. Aorta and inferior vena cava are normal in size. Miscellaneous: No ventral hernias. PELVIS: Genitourinary: Bladder wall thickness is normal. Miscellaneous: No inguinal hernias or adenopathy. What likely is a normal small appendix is seen at the right lower quadrant. There definitely is no secondary CT evidence of acute appendicitis at the right lower quadrant. No adnexal cystic or solid mass or abnormal fluid is seen within the peritoneal space. Bones: No suspicious bony lesions. No vertebral body compression fractures. IMPRESSION: Low likelihood of appendicitis-what appears to be likely a normal but small appendix is found at the right lower quadrant and in this area there is no secondary CT evidence of acute appendi citis. Additionally, there is no adnexal pathology seen or evidence of a recently ruptured right ovar vineet cyst. Mild colonic obstipation-no other source of right lower quadrant pain is found, such as uri nary tract stone Reviewed by: Wilbert Burns MD on 04/07/2022 4:58 PM PDT Approved by: Wilbert Burns MD on 04/07/2022 4:58 PM PDT Station ID: [id number]
[2022-04-07 17:40] VITALS: BP 121/88
[2022-04-07] MEDS ORDERED: iohexoL-300 100 ML VIAL IVP ONE (17:42)
== END 2022-04-07 17:34 | disposition home or self-care (01) ==
LOC: ED 14:45
DX: R10.31 Right lower quadrant pain (principal)
CPT/HCPCS: 36415; 74177; 80053; 81003; 81025; 83690; 85025; 99282; 99283; Q9967; 81001; 87086

== ENCOUNTER 2023-12-31 11:52 | Observation (INO) | payer OTHER ==
[2023-12-31 12:23] LABS: BASOPHILS % (AUTO) 0.3 %; EOSINOPHILS # (AUTO) 0.1 10^3/uL (0.0-0.7); EOSINOPHILS % (AUTO) 1.3 %; HCT - HEMATOCRIT 46.2 % (37.0-47.0); HGB - HEMOGLOBIN 15.4 g/dL (12.0-16.0); LYMPHOCYTES # (AUTO) 2.3 10^3/uL (1.5-3.5); LYMPHOCYTES % (AUTO) 34.4 %; MEAN CORPUSCULAR HEMOGLOBIN 29.1 pg (27.0-31.0); MEAN CORPUSCULAR HGB CONC 33.3 g/dL (32.0-36.0); MEAN CORPUSCULAR VOLUME 87.3 fL (81.0-99.0); MEAN PLATELET VOLUME 8.8 fL (7.9-10.8); MONOCYTES # (AUTO) 0.4 10^3/uL (0.0-1.0); MONOCYTES % (AUTO) 5.5 %; NEUTROPHILS % (AUTO) 58.4 %; PLT - PLATELET COUNT 270 10^3/uL (130-450); RED BLOOD COUNT 5.29 10^6/uL (4.20-5.40); RED CELL DISTRIBUTION WIDTH 11.9 % (12.0-15.0); WHITE BLOOD COUNT 6.8 x10^3/uL (4.8-10.8)
[2023-12-31 12:38] LABS: ALBUMIN 3.9 g/dL (3.2-5.5); ALBUMIN/GLOBULIN RATIO 1.3 (1.0-2.2); BILIRUBIN,TOTAL 0.6 mg/dL (0.2-1.0); CALCIUM 9.7 mg/dL (8.5-10.3); CREATININE 0.9 mg/dL (0.6-1.3); POTASSIUM 3.7 mmol/L (3.5-4.5)
--- NOTE | 2023-12-31 13:21 | ED Physician Documentation ---
PD HPI ABD PAIN - Stated complaint Stated Complaint: GI,ABD PX,SHAKES - Chief complaint Chief Complaint: Abd Pain - History obtained from History obtained from: Patient - History of Present Illness Timing - onset: How many days ago (9) Timing - duration: Days (9) Timing - details: Gradual onset (onset nausea and vomiting, with some diarrhea and cramping mostly upper abd pain 7 days ago. Had some URI symptoms for 2 days before that and tested positive for COVID. Then onset of NVD. Has had poor intake the past week wiht weakness, abd cramps, and now worsened vomiting overnight/today.), Still present Quality: Cramping, Aching Location: Epigastric, Periumbilical Radiation: Lower back Improved by: No: Eating, Vomiting Worsened by: Eating Associated symptoms: Nausea, Vomiting, Diarrhea, Loss of appetite. No: Fever, Constipation (though she feels like she has need to defecate.), Dysuria Review of Systems Constitutional: reports: Chills, Myalgias, Fatigue. denies: Fever GI: reports: Nausea, Vomiting. denies: Hematemesis, Bloody / black stool : denies: Dysuria Neurologic: reports: Generalized weakness. 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: Other HEENT: Tonsil/Adenoidectomy - Present Medications Home Medications: Ambulatory Orders Medication Instructions Recorded Confirmed metFORMIN [Glucophage] 1,000 mg PO DAILY 04/07/22 04/07/22 Buspirone HCl 20 mg PO BID 12/31/23 12/31/23 Empagliflozin [Jardiance] 10 mg PO DAILY 12/31/23 12/31/23 Escitalopram [Lexapro] 10 mg PO DAILY 12/31/23 12/31/23 Propranolol ER [Inderal LA] 80 mg PO DAILY 12/31/23 12/31/23 - Allergies Allergies/Adverse Reactions: Allergies Allergy/AdvReac Type Severity Reaction Status Date / Time morphine Allergy Intermediate Rash Verified 12/31/23 12:10 - Social History Does the pt smoke?: No Smoking Status: Never smoker Does the pt drink ETOH?: Yes Does the pt have substance abuse?: No - Immunizations Immunizations are current?: No - POLST Patient has POLST: No PD ED PE NORMAL - Vitals Vital signs reviewed: Yes - General General: Alert and oriented X 3, Well developed/nourished - HEENT HEENT: Pharynx benign. No: Moist mucous membranes - Neck Neck: Supple, no meningeal sign, No adenopathy - Cardiac Cardiac: RRR, No murmur - Respiratory Respiratory: Clear bilaterally - Abdomen Abdomen: Soft, Non distended, Other (tender mid to right abd lower and also in epigastric area. ). No: Normal bowel sounds (decreased) - Back Back: No CVA TTP - Derm Derm: Warm and dry. No: Normal color (pale) - Extremities Extremities: No tenderness to palpate, Normal ROM s pain, No edema Results - Vitals Vitals: Vital Signs - 24 hr 12/31/23 12/31/23 12:03 16:30 Temperature 36.8 C Heart Rate 83 94 Respiratory 19 16 Rate Blood Pressure 125/81 H 116/79 O2 Saturation 98 97 Oxygen O2 Source Room air - Labs Labs: Laboratory Tests 12/31/23 12/31/23 12/31/23 12:18 12:18 12:18 WBC 6.8 RBC 5.29 Hgb 15.4 Hct 46.2 MCV 87.3 MCH 29.1 MCHC 33.3 RDW 11.9 L Plt Count 270 MPV 8.8 Neut # (Auto) 4.0 Lymph # (Auto) 2.3 [place] # (Auto) 0.4 Eos # (Auto) 0.1 Baso # (Auto) 0.0 Absolute Nucleated RBC 0.00 Nucleated RBC % 0.0 Sodium 136 Potassium 3.7 Chloride 100 L Carbon Dioxide 25 Anion Gap 11.0 BUN 11 Creatinine 0.9 Estimated GFR (MDRD) 71 L Glucose 181 H Calcium 9.7 Magnesium 1.6 L Total Bilirubin 0.6 AST 15 ALT 15 Alkaline Phosphatase 64 Total Protein 7.0 Albumin 3.9 Globulin 3.1 Albumin/Globulin Ratio 1.3 Lipase 32 Urine Color Urine Clarity Urine pH Ur Specific [place] Urine Protein Urine Glucose (UA) Urine Ketones Urine Occult Blood Urine Nitrite Urine Bilirubin Urine Urobilinogen Ur Leukocyte Esterase Ur Microscopic Review Urine Culture Comments Serum Ketones 12/31/23 12/31/23 12:18 13:44 WBC RBC Hgb Hct MCV MCH MCHC RDW Plt Count MPV Neut # (Auto) Lymph # (Auto) [place] # (Auto) Eos # (Auto) Baso # (Auto) Absolute Nucleated RBC Nucleated RBC % Sodium Potassium Chloride Carbon Dioxide Anion Gap BUN Creatinine Estimated GFR (MDRD) Glucose Calcium Magnesium Total Bilirubin AST ALT Alkaline Phosphatase Total Protein Albumin Globulin Albumin/Globulin Ratio Lipase Urine Color DARK YELLOW Urine Clarity CLEAR Urine pH 6.0 Ur Specific [place] 1.020 Urine Protein NEGATIVE Urine Glucose (UA) >=1000 H Urine Ketones >=80 H Urine Occult Blood NEGATIVE Urine Nitrite NEGATIVE Urine Bilirubin SMALL H Urine Urobilinogen 0.2 (NORMAL) Ur Leukocyte Esterase NEGATIVE Ur Microscopic Review NOT INDICATED Urine Culture Comments NOT INDICATED Serum Ketones NEGATIVE PD Medical Decision Making - ED course Complexity details: reviewed results (ketones in urine but negative in blood. Lytes showing some low Mag. Otherwise lytes or okay. Creatinine WNL. ), re- evaluated patient (She is apparently volume depleted and is feeling some better with 2 liters IV fluid along with some Toradol and Zofran, but only modestly better. Given then Dilaudid and Inapsine with some more improvement, but still cramping. Attempted PO fluids led to much increased nausea. ), considered differential, d/w patient Reviewed Lab Results: CT showing distal ileitis and diffuse colitis. Could be viral due to COVI, most likely, but clinically also with symptoms of gastritis (so viral gastroenteritis). Has intractable nausea and pains, despite IV fluids and several doses of meds for nausea and pain. Poor PO ability still with pain on fluid intake. I am concerned about ability to maintain hydration and control symptoms by oral means. Talked with hospitalist about further care in hospital. Departure - Departure Disposition: ED Place in Observation Clinical Impression: Intractable nausea and vomiting, Intractable abdominal pain, Acute gastroenteritis, Volume depletion, Low magnesium level, COVID-19 Diabetes Qualifiers: Diabetes mellitus type: type 2 Condition: Stable Record reviewed to determine appropriate education?: Yes Discharge Date/Time: 12/31/23 18:00
[2023-12-31] MEDS ORDERED: iohexoL-300 100 ML VIAL ONE (13:54)
[2023-12-31 13:58] LABS: BILIRUBIN,URINE SMALL (NEGATIVE); GLUCOSE, URINE (UA) >=1000 mg/dL (NEGATIVE); KETONES,URINE (UA) >=80 mg/dL (NEGATIVE); LEUKOCYTE ESTERASE, URINE NEGATIVE (NEGATIVE); NITRITE,URINE NEGATIVE (NEGATIVE); OCCULT BLOOD,URINE NEGATIVE (NEGATIVE); PROTEIN,URINE NEGATIVE (NEGATIVE); UROBILINOGEN,URINE 0.2 (NORMAL) E.U./dL (NORMAL)
[2023-12-31 13:59] LABS: CLARITY,URINE CLEAR (CLEAR)
[2023-12-31] MEDS: SODIUM CHLORIDE 0.9% 2,000 ML IV STA (14:23)
[2023-12-31] MEDS: ONDANSETRON 4 MG/2 ML VIAL IVP STA ×2 (14:24→16:45)
[2023-12-31] MEDS: FAMOTIDINE 20 MG/2 ML VIAL IVP STA (14:24)
[2023-12-31] MEDS: KETOROLAC 15 MG/ML VIAL IVP STA (14:24)
[2023-12-31] MEDS: iohexoL-300 100 ML VIAL IVP ONE (14:59)
--- NOTE | 2023-12-31 15:32 | CT Report ---
PROCEDURE: Abdomen/Pelvis W INDICATIONS: mid to lower abd pain and nausea. currenlty COVID. CONTRAST: 100ml [id number] TECHNIQUE: After the administration of intravenous contrast, a CT scan of the abdomen and pelvis was performed. Images were recorded and evaluated at appropriate window settings. Reformats: coronal and sagittal. F or radiation dose reduction, the following was used: automated exposure control, adjustment of mA and /or kV according to patient size. COMPARISON: 04/07/2022. FINDINGS: Image quality: Diagnostic. Lower chest: Unremarkable. Liver: No solid mass. Mild hepatic steatosis. Gallbladder: Gallbladder is surgically absent. Biliary tree: No intrahepatic or extrahepatic dilation, accounting for age. Spleen: No splenomegaly. Pancreas: No pancreatic ductal dilation. Adrenals: No adrenal nodule. Kidneys and ureters: No hydronephrosis. No renal cystic lesion which requires follow up. No solid mas s. Stomach, bowel and peritoneum: There is no bowel obstruction. No gastric or proximal small bowel wall thickening. There is distal ileal wall thickening and diffuse colonic wall thinning. Appendix is vis ualized in right lower quadrant and is normal in size and appearance. No abscess collection. No free fluid of free air. Lymph nodes: No central or retroperitoneal adenopathy. Vessels: No infrarenal aortic aneurysm. Patent portal vein. PELVIS Reproductive organs: Unremarkable. Bladder: No abnormal wall thickening, accounting for underdistention. Pelvic lymph nodes: No pelvic adenopathy by size criteria. Bones: No aggressive osseous abnormality. Other: No significant ventral or inguinal hernia. IMPRESSION: 1. Finding is suggestive of distal ileitis and diffuse colitis. Normal appendix. No bowel obstruction . No free fluid of free air. 2. Prior cholecystectomy. Reviewed by: Enoc Bianchi MD on 12/31/2023 3:30 PM PDT Approved by: Enoc Bianchi MD on 12/31/2023 3:30 PM PDT Station ID: [id number]
[2023-12-31] MEDS: DROPERIDOL 5 MG/2 ML VIAL IVP STA (16:45)
[2023-12-31] MEDS: HYDROmorphone 0.5 MG/0.5 ML SYRINGE IVP STA (16:46)
[2023-12-31] MEDS: MAGNESIUM SULFATE 2 GRAM 2 GM/50 ML BAG IV ONE (16:46)
[2023-12-31] MEDS ORDERED: SODIUM CHLORIDE FLUSH 0.9% 10 ML SYRINGE IVP PRN (16:59)
[2023-12-31] MEDS ORDERED: ACETAMINOPHEN 325 MG TABLET PO PRN (16:59)
[2023-12-31] MEDS ORDERED: HYDROmorphone 0.5 MG/0.5 ML SYRINGE IVP PRN (17:05)
--- NOTE | 2023-12-31 17:14 | HISTORY & PHYSICAL EXAMINATION ---
Chief Complaint - Chief Complaint Chief Complaint: Intractable abdominal pain with intractable nausea History of Present Illness - Admitted From Admitted From:: Emergency room - History of Present Illness HPI Comment/Other: The patient is an extremely pleasant 33-year-old female who was diagnosed with COVID about 9 days ago. For the past week she has had issues with constant intractable nausea. She also has had increasing abdominal pain that has become more severe. She said that last night the pain was worse than her labor pains and she states that she has not been able to keep anything down in several days. She presented to the emergency room for further evaluation and treatment. In the emergency room her labs were unremarkable. Her CBC was normal. Chemistry panel was normal as well except for an elevated glucose of 181 and a magnesium level of 1.6. Liver panel was unremarkable as well. The patient did have a CT scan of the abdomen and pelvis which revealed findings suggestive of distal ileitis and diffuse colitis. Fortunately there was no evidence of bowel obstruction and no free air in the abdomen. In the emergency room she received several doses of IV Dilaudid as well as IV ketorolac. She received 2 g of IV magnesium and received 2 L fluid bolus. She also received multiple doses of IV Zofran. When I went to see her she states she is not feeling any better. She tells me that she has been unable to keep anything down at home. She has been having dry heaving and vomiting of some bile at home. Of note she has not vomited in the emergency room yet. She said that she feels like she has had some fevers at home but does not think that she has had 1 now. No shaking chills. Ongoing nausea even after receiving IV antiemetics in the emergency room. She says the pain medications they are giving her works for short period of time but then the pain comes right back. She also has had some diarrhea. She has no urinary complaints. History - Past Medical History Cardiovascular: reports: None Respiratory: reports: Other (The patient tested positive for COVID-19 about 9 days ago. She says that she has had a dry cough.) Neuro: reports: None Endocrine/Autoimmune: reports: Type 2 diabetes GI: reports: Other (The patient states she has been having severe nausea and dry heaving. Unable to tolerate p.o. intake. 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: Other HEENT: reports: Tonsil/Adenoidectomy - Family & Social History Living Situation: With spouse/s.o., With family - POLST Patient has POLST: No Meds/Allgy - Home Medications Home Medications: Ambulatory Orders Medication Instructions Recorded Confirmed Buspirone HCl 15 mg PO BID 04/07/22 04/07/22 Empagliflozin [Jardiance] 10 mg PO DAILY 04/07/22 04/07/22 PARoxetine HCL [Paxil] 30 mg PO DAILY 04/07/22 04/07/22 metFORMIN [Glucophage] 1,000 mg PO DAILY 04/07/22 04/07/22 - Allergies Allergies/Adverse Reactions: Allergies Allergy/AdvReac Type Severity Reaction Status Date / Time morphine Allergy Intermediate Rash Verified 12/31/23 12:10 Review of Systems - Constitutional Constitutional: reports: Fatigue, Malaise, Weakness, Other (Unable to tolerate p.o. intake. Plan.) - Respiratory Respiratory: reports: Cough - Gastrointestinal Gastrointestinal: reports: Abdominal pain (Severe abdominal pain especially in the epigastric area), Diarrhea, Nausea, Vomiting - Musculoskeletal Musculoskeletal: reports: Muscle pain - Psychiatric Psychiatric: reports: Depression, Anxiety - All Other Systems All Other Systems: reports: Reviewed and negative Prior Level of Functionality: She is fully independent with her ADLs. Exam - Vital Signs Reviewed Vital Signs: Yes Vital Signs: Vital Signs x48h Temp Pulse Resp BP Pulse Ox 12/31/23 12:03 36.8 C 83 19 125/81 H 98 - Physical Exam General Appearance: positive: Mild distress, Anxious Eyes Bilateral: positive: Normal inspection ENT: positive: ENT inspection nml Neck: positive: Nml inspection Cardiovascular: positive: Regular rate & rhythm, No murmur, No gallop. negative: Friction rub Abdomen: positive: Tenderness (She has mild tenderness to palpation diffusely with rather significant pain and guarding in the epigastric area.). negative: Nml bowel sounds (She has hypoactive bowel sounds) Skin: positive: Color nml, No rash, Warm, Dry Extremities: positive: Non-tender, Full ROM Neurologic/Psychiatric: positive: Oriented x3, CN's nml (2-12), Other (The patient appears to be quite anxious) Sepsis Event Note (H) - Evaluation Current Stage of Sepsis: Ruled out Conclusion/Plan - Problem List (1) Intractable abdominal pain Conclusion/Plan: The patient is having intractable abdominal pain. She states that the pain is worse than labor pains. She has received multiple doses of IV Dilaudid with only temporary relief. The majority of her pain is centered in the epigastric area and she says it feels like she has a knife sticking in her stomach. She will continue to have IV Dilaudid available for pain as well as p.o. hydrocodone and Tylenol. Plan will be outlined below (2) Acute colitis Conclusion/Plan: This is likely a viral process. She has known COVID-19. She has no objective fever or white blood cell count elevation. Pain control. We will give her some IV fluids. I am going to place her on clear liquids tonight. She does have a significant colitis noted on CT imaging. (3) Intractable nausea Conclusion/Plan: The patient has intractable nausea and has not been able to keep anything down in several days. Subjectively she states that she has been having vomiting and dry heaving at home anytime she tries to eat anything. We have not seen any vomiting in the emergency room however she has been treated with antiemetics and been receiving fluids. She will have IV Zofran and oral disintegrating Zofran available as needed. She will be placed on clear liquids tonight and hopefully her diet can be advanced tomorrow. (4) COVID-19 Conclusion/Plan: The patient has had diarrhea. She has had a dry cough and has just felt terrible for the past 9 days. However she is not hypoxic. Her lungs sound clear on exam. There is no indication for steroids or remdesivir at this point. Supportive care. She should remain under precautions at this point (5) Anxiety Conclusion/Plan: The patient admits to being extremely anxious. She has never had COVID-19 before and she does not really understand her symptoms and this makes her quite nervous. She says that she is never felt so bad in her entire life and the severe abdominal pain and ongoing nausea is beginning to scare her. She is on BuSpar 15 mg p.o. twice daily. We are going to continue that in the hospital. (6) Moderate major depression Conclusion/Plan: I will wait for the pharmacy to reconcile her medications. She is on Paxil as an outpatient. I did go ahead and order her BuSpar for her anxiety but I will wait for the pharmacy to reconcile the rest of her medications. (7) Diabetes Conclusion/Plan: The patient has type 2 diabetes. She takes metformin and Jardiance at home. We are going to hold these for now we will place her on sliding scale coverage. Qualifiers: Diabetes mellitus type: type 2 (8) Obesity (BMI 30.0-34.9) Conclusion/Plan: The patient's BMI is 34.3. At this point she states that she has been unable to keep anything down for several days. We will place her on clear liquids for now. After she recuperates from this acute illness weight loss would be recommended through dietary modification and exercise as tolerated Disposition: This patient will be placed in observation in the hospital. The patient is having severe abdominal pain that she describes as being worse than her labor pains. She has evidence of significant colitis on her CT scan. She has received multiple doses of parenteral narcotics with only temporary relief. In addition she has severe intractable nausea and subjective vomiting and dry heaving. The patient would benefit from IV fluids and IV antiemetics. For her severe intractable epigastric pain I am going to place her on IV Protonix. She needs pain control and we need to be able to advance her diet as she states she has been unable to eat for many days. Hopefully with supportive care the patient will turn around in the next 24 hours. Time spent: 45 minutes - Lab Results Fish Bones: 12/31/23 12:18 12/31/23 12:18
[2023-12-31] MEDS: MAG HYDROX/AL HYDROX/SIMETH 30 ML UDC PO STA (18:00)
[2023-12-31] MEDS: PANTOPRAZOLE 40 MG VIAL IV SCH (18:23)
[2023-12-31] MEDS: SODIUM CHLORIDE FLUSH 0.9% 10 ML SYRINGE IVP SCH (18:24)
[2023-12-31] MEDS: SODIUM CHLORIDE 0.9% 1,000 ML IV SCH (18:25)
[2023-12-31] MEDS: busPIRone 5 MG TABLET PO SCH (20:06)
[2023-12-31] MEDS: ONDANSETRON ODT 4 MG TABLET TL PRN (20:06)
[2023-12-31] MEDS: INSULIN LISPRO 300 UNIT/3 ML PEN SUBQ SCH (20:19)
[2023-12-31] MEDS: LORazepam 0.5 MG TABLET PO PRN (23:57)
[2024-01-01] MEDS: HYDROcod/ACETAM 5/325 MG TABLET PO PRN (05:21)
[2024-01-01] MEDS: ESCITALOPRAM 10 MG TABLET PO SCH (08:30)
[2024-01-01] MEDS: ENOXAPARIN 40 MG/0.4 ML SYRINGE SUBQ SCH (08:30)
[2024-01-01] MEDS ORDERED: MAGNESIUM SULFATE 1 GM/2 ML VIAL IV ONE (09:22)
[2024-01-01] MEDS: MAGNESIUM SULFATE 2 GRAM 2 GM/50 ML BAG IV ONE (10:43)
--- NOTE | 2024-01-01 12:26 | PHARMACY PROGRESS NOTE ---
- Best Possible Medication History Admit Date and Time: 12/31/23 1651 Processed by: Pharmacy Medications reviewed in ED?: No Medication History completed: Yes Secondary Source(s): Physician records, Insurance records As the person ultimately responsible for medication therapy, providers are able to order a medication from an existing home medication list in [facility] via the "Reconcile Routine" prior to Confirmation of that medication by business support coordinator. Such practice is discouraged except when the physician, in their clinical judgment, deems that a medical need exists for a medication without regard to previous use.
[2024-01-01] MEDS ORDERED: [UNRECOGNIZED DRUG - MIXTURE] VG SCH (14:30)
--- NOTE | 2024-01-01 14:31 | PROVIDER PROGRESS NOTE ---
Subjective - Prog Note Date Prog Note Date: 01/01/24 Prog Note Time: 14:30 - Subjective Pt reports feeling: Improved Subjective: She has not had any vomiting overnight. She has been able to keep down some clears but remains with decreased appetite. This morning when I saw her we discussed progression to full liquid diet. This afternoon she has been able to tolerate small amounts of clear liquids with some nausea and abdominal pain. This afternoon she does not want clear liquids and she definitely does not want to progress to full liquid diet. She has not had any bowel movement since admission she has not had any bowel movements in several days. Prior to admit she states she was having yellow foamy stools. She was not having any blood in her bowel movements prior to admission. She does not have any history of irritable bowel disease. She has had her gallbladder out in the past and states she has had a "blockage" in her bowels in the past. pantoprazole has been effective for her pain as well as [place]. Current Medications - Current Medications Current Medications: Medications Famotidine (Famotidine 20 Mg/2 Ml Vial) 20 mg IVP BID [facility] Buspirone HCl (Buspirone 5 Mg Tablet) 20 mg PO BID [facility] Last Admin: 01/01/24 10:38 Dose: 20 mg Ondansetron HCl (Ondansetron 4 Mg/2 Ml Vial) 4 mg IVP Q4H PRN PRN Reason: Nausea / Vomiting Pantoprazole Sodium (Pantoprazole 40 Mg Vial) 40 mg IV Q12H [facility] Last Admin: 01/01/24 05:23 Dose: 40 mg Propranolol HCl (Propranolol Er 80 Mg Capsule) 80 mg PO DAILY [facility] Acetaminophen (Acetaminophen 325 Mg Tablet) 650 mg PO Q4HR PRN PRN Reason: Pain 1 to 4, or Fever Hydrocodone Bitart/Acetaminophen (Hydrocod/Acetam 5/325 Mg Tablet) 1 tab PO Q4H PRN PRN Reason: Moderate Pain (Level 4-6) Last Admin: 01/01/24 13:09 Dose: 1 tab Enoxaparin Sodium (Enoxaparin 40 Mg/0.4 Ml Syringe) 40 mg SUBQ DAILY [facility] Last Admin: 01/01/24 08:30 Dose: 40 mg Escitalopram Oxalate (Escitalopram 10 Mg Tablet) 10 mg PO DAILY [facility] Last Admin: 01/01/24 08:30 Dose: 10 mg Hydromorphone HCl (Hydromorphone 0.5 Mg/0.5 Ml Syringe) 0.5 mg IVP ONCE PRN PRN Reason: Severe Pain (Level 7-10) Stop: 01/01/24 17:04 Insulin Human Lispro (Insulin Lispro 300 Unit/3 Ml Pen) 1 - 5 unit SUBQ 080 0,1200,1700,2100 DANNY; Protocol Last Admin: 01/01/24 13:10 Dose: Not Given Lorazepam (Lorazepam 0.5 Mg Tablet) 0.5 mg PO Q6H PRN PRN Reason: Anxiety Last Admin: 01/01/24 13:09 Dose: 0.5 mg Objective - Vital Signs/Intake & Output Vital Signs: Vital Signs x48h Temp Pulse Resp BP Pulse Ox 01/01/24 13:00 36.8 C 80 18 129/77 98 01/01/24 08:27 36.7 C 94 16 124/79 98 Intake & Output: Intake & Output 12/29/23 12/30/23 12/31/23 01/01/24 23:59 23:59 23:59 23:59 Intake Total 2450 1960 Balance 2450 1959 - Objective General Appearance: positive: No acute distress Eyes Bilateral: positive: Normal inspection ENT: positive: ENT inspection nml Neck: positive: Nml inspection Respiratory: positive: No respiratory distress, Breath sounds nml Cardiovascular: positive: Regular rate & rhythm Abdomen: positive: Tenderness (mild diffuse, slightly worse in the epigastrium and RLQ, no rebound) Back: positive: Nml inspection Skin: positive: Color nml Extremities: positive: Non-tender Neurologic/Psychiatric: positive: Oriented x3, CN's nml (2-12) - Lab Results Fish Bones: 12/31/23 12:18 12/31/23 12:18 Other Labs: Lab Results x24hrs 01/01/24 01/01/24 12/31/23 Range/Units 11:48 07:47 20:12 POC Whole Bld Glucose 134 H 111 H 101 H (70 - 100) mg/dL Serum Ketones (NEGATIVE) 12/31/23 Range/Units 12:18 POC Whole Bld Glucose (70 - 100) mg/dL Serum Ketones NEGATIVE (NEGATIVE) - Diagnostic Imaging Diagnostic Imaging Results: positive: Final report reviewed Diagnostic Imaging Comments: CT abdomen and pelvis shows colitis. ABX Reporting Has patient been on IV antibiotics over the past 48 hours?: No Sepsis Event Note (H) - Evaluation Current Stage of Sepsis: Ruled out Assessment/Plan - Problem List (1) Intractable abdominal pain Impression: he patient is having intractable abdominal pain. The majority of her pain is centered in the epigastric area and she says it feels like she has a knife sticking in her stomach. She will continue to have IV Dilaudid available for pain. [place] and lorazepam have been effective. She is not able to increase her diet at this time. (2) Acute colitis Conclusion/Plan: This is likely a viral process. She has known COVID-19. She has no objective fever or white blood cell count elevation. Pain control. We will give her some IV fluids. I am going to place her on clear liquids tonight. She does have a significant colitis noted on CT imaging. (3) Intractable nausea Conclusion/Plan: The patient has intractable nausea and has not been able to keep anything down in several days. Subjectively she states that she has been having vomiting and dry heaving at home anytime she tries to eat anything. She has not had any vomiting today, but minimal intake of clears. she does not want to take in more than this, as clear liquids continue to give her pain. (4) COVID-19 Conclusion/Plan: The patient has had diarrhea. She has had a dry cough and has just felt terrible for the past 9 days. However she is not hypoxic. Her lungs sound clear on exam. There is no indication for steroids or remdesivir at this point. Supportive care. She should remain under precautions at this point (5) Anxiety Conclusion/Plan: The patient admits to being extremely anxious. She has never had COVID-19 befor e and she does not really understand her symptoms and this makes her quite nervous. She says that she is never felt so bad in her entire life and the severe abdominal pain and ongoing nausea is beginning to scare her. She is on BuSpar 15 mg p.o. twice daily. We are going to continue that in the hospital. I have reassured her that with supportive care, her symptoms should improve. (6) Moderate major depression Conclusion/Plan: She is on her home Buspar and propranolol. We have restarted her home escitalopram. (7) Diabetes Conclusion/Plan: The patient has type 2 diabetes. She takes metformin and Jardiance at home. We are going to hold these for now we will place her on sliding scale coverage. Blood sugar has been well controlled on SSI- she has not required any insulin. Qualifiers: Diabetes mellitus type: type 2 (8) Obesity (BMI 30.0-34.9) Conclusion/Plan: The patient's BMI is 34.3. At this point she states that she has been unable to keep anything down for several days. We will place her on clear liquids for now. After she recuperates from this acute illness weight loss would be recommended through dietary modification and exercise as tolerated Disposition: This patient will be placed in observation in the hospital. The patient is having severe abdominal pain that she describes as being worse than her labor pains. She has evidence of significant colitis on her CT scan. She has received multiple doses of parenteral narcotics with only temporary relief. She continues to tolerate small amounts of clear liquids. In addition she has severe intractable nausea. She has not vomited or had a BM since the time of admit. We have lost IV access. I have converted her protonix to po BID and have added famotidine. I have encouraged her to increase her po intake.
[2024-01-01] MEDS ORDERED: FAMOTIDINE 20 MG/2 ML VIAL IVP SCH (14:32)
[2024-01-01] MEDS: PANTOPRAZOLE 40 MG TABLET PO SCH (20:31)
[2024-01-01] MEDS: FAMOTIDINE 20 MG TABLET PO SCH (20:31)
[2024-01-01] MEDS: ONDANSETRON 4 MG/2 ML VIAL IVP PRN (22:10)
[2024-01-02 05:56] LABS: BASOPHILS % (AUTO) 0.4 %; EOSINOPHILS # (AUTO) 0.2 10^3/uL (0.0-0.7); EOSINOPHILS % (AUTO) 2.6 %; HCT - HEMATOCRIT 38.7 % (37.0-47.0); HGB - HEMOGLOBIN 12.9 g/dL (12.0-16.0); LYMPHOCYTES # (AUTO) 2.4 10^3/uL (1.5-3.5); LYMPHOCYTES % (AUTO) 42.4 %; MEAN CORPUSCULAR HEMOGLOBIN 29.6 pg (27.0-31.0); MEAN CORPUSCULAR HGB CONC 33.3 g/dL (32.0-36.0); MEAN CORPUSCULAR VOLUME 88.8 fL (81.0-99.0); MEAN PLATELET VOLUME 8.8 fL (7.9-10.8); MONOCYTES # (AUTO) 0.3 10^3/uL (0.0-1.0); MONOCYTES % (AUTO) 5.4 %; NEUTROPHILS # (AUTO) 2.8 10^3/uL (1.5-6.6); NEUTROPHILS % (AUTO) 48.8 %; PLT - PLATELET COUNT 222 10^3/uL (130-450); RED BLOOD COUNT 4.36 10^6/uL (4.20-5.40); RED CELL DISTRIBUTION WIDTH 11.9 % (12.0-15.0); WHITE BLOOD COUNT 5.7 x10^3/uL (4.8-10.8)
[2024-01-02 06:09] LABS: CALCIUM 8.4 mg/dL (8.5-10.3); CREATININE 0.5 mg/dL (0.6-1.3); POTASSIUM 3.5 mmol/L (3.5-4.5)
[2024-01-02] MEDS ORDERED: CHOLESTYRAMINE 4 GM PACKET PO SCH ×2 (07:00→16:00)
--- NOTE | 2024-01-02 07:47 | PROVIDER PROGRESS NOTE ---
Subjective - Prog Note Date Prog Note Date: 01/02/24 Prog Note Time: 07:45 Current Medications - Current Medications Current Medications: Medications Hydrocodone Bitart/Acetaminophen (Hydrocod/Acetam 5/325 Mg Tablet) 1 tab PO Q4H PRN PRN Reason: Moderate Pain (Level 4-6) Last Admin: 01/01/24 22:00 Dose: 1 tab Acetaminophen (Acetaminophen 325 Mg Tablet) 650 mg PO Q4HR PRN PRN Reason: Pain 1 to 4, or Fever Buspirone HCl (Buspirone 5 Mg Tablet) 20 mg PO BID [facility] Last Admin: 01/01/24 20:30 Dose: 20 mg Cholestyramine/Sucrose (Cholestyramine 4 Gm Packet) 4 gm PO ONCE [facility] Stop: 01/02/24 10:00 Enoxaparin Sodium (Enoxaparin 40 Mg/0.4 Ml Syringe) 40 mg SUBQ DAILY [facility] Last Admin: 01/01/24 08:30 Dose: 40 mg Escitalopram Oxalate (Escitalopram 10 Mg Tablet) 10 mg PO DAILY [facility] Last Admin: 01/01/24 08:30 Dose: 10 mg Famotidine (Famotidine 20 Mg Tablet) 20 mg PO BID [facility] Last Admin: 01/01/24 20:31 Dose: 20 mg Lorazepam (Lorazepam 0.5 Mg Tablet) 0.5 mg PO Q6H PRN PRN Reason: Anxiety Last Admin: 01/01/24 20:39 Dose: 0.5 mg Ondansetron HCl (Ondansetron 4 Mg/2 Ml Vial) 4 mg IVP Q4H PRN PRN Reason: Nausea / Vomiting Last Admin: 01/01/24 22:10 Dose: 4 mg Ondansetron HCl (Ondansetron Odt 4 Mg Tablet) 4 mg TL Q4H PRN PRN Reason: Nausea / Vomiting Last Admin: 01/01/24 17:01 Dose: 4 mg Pantoprazole Sodium (Pantoprazole 40 Mg Tablet) 40 mg PO BID [facility] Last Admin: 01/01/24 20:31 Dose: 40 mg Propranolol HCl (Propranolol Er 80 Mg Capsule) 80 mg PO DAILY [facility] Objective - Vital Signs/Intake & Output Vital Signs: Vital Signs x48h Temp Pulse Resp BP Pulse Ox 01/02/24 05:00 36.7 C 92 18 138/92 H 98 Intake & Output: Intake & Output 12/30/23 12/31/23 01/01/24 01/02/24 23:59 23:59 23:59 23:59 Intake Total 2450 3410 Balance 2450 3410 - Lab Results Fish Bones: 01/02/24 05:24 01/02/24 05:24 Other Labs: Lab Results x24hrs 01/02/24 01/02/24 01/01/24 Range/Units 05:24 05:24 21:08 WBC 5.7 (4.8-10.8) x10^3/uL RBC 4.36 (4.20-5.40) 10^6/uL Hgb 12.9 (12.0-16.0) g/dL Hct 38.7 (37.0-47.0) % MCV 88.8 (81.0-99.0) fL MCH 29.6 (27.0-31.0) pg MCHC 33.3 (32.0-36.0) g/dL RDW 11.9 L (12.0-15.0) % Plt Count 222 (130-450) 10^3/uL MPV 8.8 (7.9-10.8) fL Neut # (Auto) 2.8 (1.5-6.6) 10^3/uL Lymph # (Auto) 2.4 (1.5-3.5) 10^3/uL [place] # (Auto) 0.3 (0.0-1.0) 10^3/uL Eos # (Auto) 0.2 (0.0-0.7) 10^3/uL Baso # (Auto) 0.0 (0.0-0.1) 10^3/uL Absolute Nucleated RBC 0.00 x10^3/uL Nucleated RBC % 0.0 /100WBC Sodium 138 (135-145) mmol/L Potassium 3.5 (3.5-4.5) mmol/L Chloride 108 (101-111) mmol/L Carbon Dioxide 21 (21-32) mmol/L Anion Gap 9.0 (6-13) BUN 3 L (6-20) mg/dL Creatinine 0.5 L (0.6-1.3) mg/dL Estimated GFR (MDRD) 140 (>89) Glucose 135 H (74-104) mg/dL POC Whole Bld Glucose 130 H (70 - 100) mg/dL Calcium 8.4 L (8.5-10.3) mg/dL 01/01/24 01/01/24 01/01/24 Range/Units 16:42 11:48 07:47 WBC (4.8-10.8) x10^3/uL RBC (4.20-5.40) 10^6/uL Hgb (12.0-16.0) g/dL Hct (37.0-47.0) % MCV (81.0-99.0) fL MCH (27.0-31.0) pg MCHC (32.0-36.0) g/dL RDW (12.0-15.0) % Plt Count (130-450) 10^3/uL MPV (7.9-10.8) fL Neut # (Auto) (1.5-6.6) 10^3/uL Lymph # (Auto) (1.5-3.5) 10^3/uL [place] # (Auto) (0.0-1.0) 10^3/uL Eos # (Auto) (0.0-0.7) 10^3/uL Baso # (Auto) (0.0-0.1) 10^3/uL Absolute Nucleated RBC x10^3/uL Nucleated RBC % /100WBC Sodium (135-145) mmol/L Potassium (3.5-4.5) mmol/L Chloride (101-111) mmol/L Carbon Dioxide (21-32) mmol/L Anion Gap (6-13) BUN (6-20) mg/dL Creatinine (0.6-1.3) mg/dL Estimated GFR (MDRD) (>89) Glucose (74-104) mg/dL POC Whole Bld Glucose 124 H 134 H 111 H (70 - 100) mg/dL Calcium (8.5-10.3) mg/dL Sepsis Event Note (H) - Evaluation Current Stage of Sepsis: Ruled out
[2024-01-02 08:02] VITALS: BP 132/90; O2SAT 96
[2024-01-02] MEDS: CHOLESTYRAMINE 4 GM PACKET PO ONE (08:28)
[2024-01-02] MEDS: PROPRANOLOL ER 80 MG CAPSULE PO SCH (08:28)
--- NOTE | 2024-01-02 11:48 | Discharge Plan ---
Discharge Plan Problem Reviewed?: Yes Disposition: Home, Self Care Condition: Stable Prescriptions: RX: LORazepam [Ativan] 0.5 mg PO Q6H PRN #20 tab PRN Reason: Anxiety RX: HYDROcod/ACETAM 5/325 [[place] 5/325] 1 tab PO Q4H PRN #20 tab PRN Reason: Moderate Pain (Level 4-6) RX: Famotidine [Pepcid] 20 mg PO BID #60 tab RX: Pantoprazole [Protonix] 40 mg PO BID #60 tab RX: Ondansetron Odt [Zofran Odt] 4 mg TL Q4H PRN #20 tab PRN Reason: Nausea / Vomiting Diet: Soft Activity Restrictions: No Restrictions Shower Restrictions: No Driving Restrictions: No (no driving on ativan or pain meds) Instruction Topics: ED Diet [facility] Concerns: You came into the hospital with abdominal pain nausea and vomiting. You are not able to tolerate food, and therefore you needed to come in for supportive treatment. It is completely reasonable to think that the symptoms were related to your COVID infection. As we know COVID can do strange things. Yo the CT of the abdomen that was done when you came into the hospital showed inflammation in your colon. This is consistent with the changes that you had noted at home and your bowel movements. I do not expect that this will resolve quickly. At home you need to eat what ever food you can tolerate. I would recommend a bland diet and have included instructions on this. For nausea I have prescribed Zofran you can take this as needed and it will not make you drowsy please follow the instructions on the bottle. To sooth your GI tract I have recommended famotidine and Protonix. I have sent prescriptions for these medications to the pharmacy. For pain I have prescribed [place]. Each tablet has 325 mg of Tylenol and it. It is okay for you also to take [id number] Tylenol, just do not exceed 4000 mg of Tylenol in 24 hours. For anxiety I want you to continue on your outpatient medications, but also you can take Ativan especially when the anxiety is overwhelming. I am hopeful that when you get home in your normal environment with the people that love you your anxiety will also improve. For outpatient follow-up I recommend that [place]. At this visit I would recommend that a vitamin D level be checked. I would also recommend that you get referred to gastroenterology. It would be a good idea to see a golf sales associate after the this episode of colitis. Plan of Treatment: medication for GI upset, anxiety and pain. Care Goals: Relief of GI discomfort No Smoking: If you smoke, Please STOP! Call for help.
--- NOTE | 2024-01-02 12:40 | DISCHARGE SUMMARY ---
"Discharge Summary Admit Date: 12/31/23 Discharge Date: 01/02/24 Discharging Provider: Bri Pedro PA-C Primary Care Provider: [facility] Code Status: Attempt Resuscitation Condition at Discharge: Stable Discharge Disposition: 01 Home, Self Care - DIAGNOSES Admission Diagnoses: Intractable abdominal pain Acute colitis Intractable nausea COVID-19 Anxiety Depression Diabetes Obesity Discharge Diagnoses with Status of Each Condition: (1) Intractable abdominal pain Impression: Admitted for IV analgesics and observation.. Cropwell and lorazepam have been effective. On the date of discharge was able to tolerate small amounts of toast and crackers (2) Acute colitis Conclusion/Plan: This is likely a viral process. She has known COVID-19. She has no objective fever or white blood cell count elevation. Reported to ED with reports of fever. She had some loose stools in the days before admission. She does have a significant colitis noted on CT imaging. (3) Intractable nausea Conclusion/Plan: The patient had intractable nausea and had not been able to keep anything down in several days. releived with medications here and able to take po, albiet small amounts prior to dc. (4) COVID-19 Conclusion/Plan: The patient has had diarrhea. She has had a dry cough and has just felt terrible for the 9 days prior to admit. However she is not hypoxic. Her lungs sounded clear on exam. There was bi indication for steroids or remdesivir. (5) Anxiety Conclusion/Plan: The patient admits to being extremely anxious. She has never had COVID-19 before and she does not really understand her symptoms and this makes her quite nervous. She is on BuSpar 15 mg p.o. twice daily as outpt and will continue on discharge (6) Moderate major depression Conclusion/Plan: She is on her home Buspar and propranolol. We have restarted her home escitalopram. (7) Diabetes Conclusion/Plan: The patient has type 2 diabetes. She takes metformin and Jardiance at home. blood sugar well controlled while inpatient. She had minimal po intake. She did not require any SSI Qualifiers: Diabetes mellitus type: type 2 (8) Obesity (BMI 30.0-34.9) Conclusion/Plan: The patient's BMI is 34.3. After she recuperates from this acute illness weight loss would be recommended through dietary modification and exercise as tolerated - HPI History of Present Illness: From Admission H&P: The patient is an extremely pleasant 33-year-old female who was diagnosed with COVID about 9 days ago. For the past week she has had issues with constant intractable nausea. She also has had increasing abdominal pain that has become more severe. She said that last night the pain was worse than her labor pains and she states that she has not been able to keep anything down in several days. She presented to the emergency room for further evaluation and treatment. In the emergency room her labs were unremarkable. Her CBC was normal. Chemistry panel was normal as well except for an elevated glucose of 181 and a magnesium level of 1.6. Liver panel was unremarkable as well. The patient did have a CT scan of the abdomen and pelvis which revealed findings suggestive of distal ileitis and diffuse colitis. Fortunately there was no evidence of bowel obstruction and no free air in the abdomen. In the emergency room she received several doses of IV Dilaudid as well as IV ketorolac. She received 2 g of IV magnesium and received 2 L fluid bolus. She also received multiple doses of IV Zofran. When I went to see her she states she is not feeling any better. She tells me that she has been unable to keep anything down at home. She has been having dry heaving and vomiting of some bile at home. Of note she has not vomited in the emergency room yet. She said that she feels like she has had some fevers at home but does not think that she has had 1 now. No shaking chills. Ongoing nausea even after receiving IV antiemetics in the emergency room. She says the pain medications they are giving her works for short period of time but then the pain comes right back. She also has had some diarrhea. She has no urinary com plaints. - CONSULTS | PROCEDURES Consultations: none Procedures: CT Abdomen and Pelvis:Distal ileitis and diffuse colitis. Normal appendix. No bowel obstruction. No free fluid or free air. Prior cholecystectomy. - HOSPITAL COURSE Hospital Course: Patient presented to the emergency department with COVID infection diagnosed 9 days prior to admission with abdominal pain and intractable nausea. She states she had vomited multiple times at home as well as having loose stools. She did not vomit in the emergency department. She was placed on clear liquid diet and her pain was controlled with IV analgesics. She did not improve enough to go home and therefore was admitted overnight. Her symptoms improved somewhat and she was able to tolerate a bland diet she was therefore discharged home. - ALLERGIES Allergies/Adverse Reactions: Allergies Allergy/AdvReac Type Severity Reaction Status Date / Time morphine Allergy Intermediate Rash Verified 12/31/23 12:10 - MEDICATIONS Home Medications: Ambulatory Orders Medication Instructions Recorded Confirmed Buspirone HCl 20 mg PO BID 12/31/23 12/31/23 Empagliflozin [Jardiance] 10 mg PO DAILY 12/31/23 12/31/23 Escitalopram [Lexapro] 10 mg PO DAILY 12/31/23 12/31/23 Propranolol ER [Inderal LA] 80 mg PO DAILY 12/31/23 12/31/23 Metformin HCl [Metformin ER 1,000 mg PO DAILY 01/01/24 01/01/24 Osmotic] Segesterone AC/Ethin Estradiol 1 each VG ONCE 01/01/24 01/01/24 [Annovera Vaginal Ring] Acetaminophen [Tylenol] 650 mg PO Q4HR PRN tab 01/02/24 Cholestyramine [Questran] 4 gm PO BIDAC packet 01/02/24 Famotidine [Pepcid] 20 mg PO BID #60 tab 01/02/24 HYDROcod/ACETAM 5/325 [Cropwell 5/325] 1 tab PO Q4H PRN #20 tab 01/02/24 LORazepam [Ativan] 0.5 mg PO Q6H PRN #20 tab 01/02/24 Ondansetron Odt [Zofran Odt] 4 mg TL Q4H PRN #20 tab 01/02/24 Pantoprazole [Protonix] 40 mg PO BID #60 tab 01/02/24 busPIRone [Buspar] 20 mg PO BID tab 01/02/24 - PHYSICAL EXAM AT DISCHARGE General Appearance: positive: No acute distress Eyes Bilateral: positive: Normal inspection ENT: positive: ENT inspection nml Neck: positive: Nml inspection Respiratory: positive: Breath sounds nml Cardiovascular: positive: Regular rate & rhythm Abdomen: positive: No distention, Tenderness (mild tenderness, diffuse) Skin: positive: Color nml Extremities: positive: Non-tender, No pedal edema Neurologic/Psychiatric: positive: Oriented x3 - LABS Result Diagrams: 01/02/24 05:24 01/02/24 05:24 - SEPSIS Current Stage of Sepsis: Ruled out - FOLLOW UP Follow Up: PCP at [facility] - TIME SPENT Time Spent in Discharge (Minutes): 30"
== END 2024-01-02 14:00 | disposition home or self-care (01) ==
LOC: ED 11:52 → MS2 16:59
PROVIDERS: ADMIT Physician Assistant; ATTEND Physician Assistant Medical
DX: A08.4 Viral intestinal infection, unspecified (principal); U07.1 COVID-19; R11.0 Nausea; F41.9 Anxiety disorder, unspecified; F32.1 Major depressive disorder, single episode, moderate; E11.9 Type 2 diabetes mellitus without complications; E66.9 Obesity, unspecified; E86.9 Volume depletion, unspecified; E83.42 Hypomagnesemia; Z68.34 Body mass index [BMI] 34.0-34.9, adult; Z79.84 Long term (current) use of oral hypoglycemic drugs; Z79.899 Other long term (current) drug therapy; Z88.5 Allergy status to narcotic agent
CPT/HCPCS: 36415; 74177; 80048; 80053; 81003; 82009; 83690; 83735; 85025; 96365; 96366; 96372; 96375; 99284; 99285; A9270; G0378; J1170; J1650; Q0162; Q9967; 81001; 87086